=== PATIENT | female | born 1970 | race Caucasian/White ===

== ENCOUNTER → 2020-09-01 07:33 | Outpatient (BNVA) | payer OTHER, SELFPAY | PROVIDERS: PCP Internal Medicine; Visit Provider Internal Medicine Endocrinology, Diabetes & Metabolism | DX: Z76.89 Persons encountering health services in other specified circumstances (principal) ==

== ENCOUNTER 2020-09-01 08:18 | Outpatient (REF) | payer OTHER, SELFPAY ==
[2020-09-01 11:11] LABS: Free T4 (Free Thyroxine) 0.87 ng/dL (0.71-1.85); Thyroid Stimulating Hormone 0.65 mIU/mL (0.32-4.0)
[2020-09-02 18:37] LABS: Triiodothyronine T3 Total 83 ng/dL (76-181)
== END 2020-09-01 08:19 | disposition home or self-care (01) ==
LOC: HO.10HDL 08:18
PROVIDERS: Visit Provider Internal Medicine Endocrinology, Diabetes & Metabolism
DX: E04.2 Nontoxic multinodular goiter (principal)
CPT/HCPCS: 84439; 84443; 84480

== ENCOUNTER 2020-10-21 08:56 | Outpatient (REF) | payer OTHER, SELFPAY ==
--- NOTE | 2020-10-21 09:00 | MM_ITS ---
EXAMINATION: MM SCREENING DIGITAL BREAST TOMOSYNTHESIS, BILATERAL CLINICAL INFORMATION: Screening. Asymptomatic. The lifetime risk of breast cancer based on the Tyrer-Cuzick Model is 6%. COMPARISON: Mammography: 04/16/2019, 11/19/2017, 08/22/2011 TECHNIQUE: Digital breast tomosynthesis is performed in both the craniocaudal and mediolateral oblique views along with computer-aided detection (CAD). Synthesized 2D images are generated from the tomosynthesis. FINDINGS: There are scattered areas of fibroglandular density (ACR BI-RADS breast composition Category b). There are no significant masses, abnormal calcifications, or other abnormalities. Parenchymal pattern is similar to prior studies. No developing density. No significant changes. MM/MM tomosynthesis screening BI IMPRESSION: No mammographic evidence of malignancy. ASSESSMENT: BI-RADS 1: Negative RECOMMENDATION: Routine annual mammography screening. This patient's information was entered into a reminder system with a target due date for their next mammogram.
== END 2020-10-21 08:57 | disposition home or self-care (01) ==
LOC: HO.MAMMO 08:56
PROVIDERS: Visit Provider Internal Medicine
DX: Z12.31 Encounter for screening mammogram for malignant neoplasm of breast (principal)
CPT/HCPCS: 77063; 77067

== ENCOUNTER 2020-11-08 16:42 | Outpatient (REF) | payer OTHER, SELFPAY ==
[2020-11-08 18:07] LABS: MANUAL DIFF FLAG NO
[2020-11-08 18:11] LABS: Basophils Absolute Auto 0.1 X10*3/uL (0.0-0.2); Basophils Percent Auto 0.8 % (0-2); Eosinophils Absolute Auto 0.3 X10*3/uL (0.0-0.4); Eosinophils Percent Auto 5.2 % (0-4); Hematocrit 40.2 % (37-47); Hemoglobin 13.5 g/dl (12.0-16.0); Imm Gran Abs Auto 0.01 X10*3/uL (0.00-0.03); Imm Gran Pct Auto 0.2 % (0.0-0.4); Lymphocytes Absolute Auto 2.6 X10*3/uL (1.2-4.9); Lymphocytes Percent Auto 44.3 % (20-40); Mean Corpuscular HGB Conc 33.6 g/dl (31.0-35.0); Mean Corpuscular Hemoglobin 30.5 pg (27.0-33.0); Monocytes Absolute Auto 0.5 X10*3/uL (0.1-1.2); Monocytes Percent Auto 8.8 % (2-11); Neutrophils Absolute Auto 2.4 X10*3/uL (2.0-8.3); Neutrophils Percent Auto 40.7 % (45-73); Platelet Count 295 X10*3/uL (160-400); Red Blood Count 4.42 X10*6/uL (4.20-5.50); Red Cell Distribution Width 12.9 % (11.0-16.0); White Blood Count 5.9 X10*3/uL (4.8-10.8)
[2020-11-08 18:11] LABS: Glucose Urine UA NEG (NEG); Leukocyte Esterase Urine NEG (NEG); Nitrite Urine NEG (NEG); PH 5.5 (5.0-8.0); Specific Gravity - Urine >= 1.030 (1.005-1.025); Urine Blood NEG (NEG); Urine Ketones NEG (NEG); Urine Protein NEG (NEG-TRACE)
[2020-11-08 18:19] LABS: Appearance Urine CLEAR; Color Urine YELLOW
[2020-11-08 18:32] LABS: Alanine Aminotransferase 20 U/L (0-31); Albumin Level 4.2 g/dL (3.5-5.0); Alkaline Phosphatase 65 U/L (39-117); Anion Gap 13 (12-20); Aspartate Amino Transferase 16 U/L (5-31); Bilirubin Total 0.4 mg/dL (0.0-1.0); Blood Urea Nitrogen 15 mg/dL (9-16); Calcium 9.1 mg/dL (8.4-10.2); Carbon Dioxide 25 mmol/L (22-29); Chloride 105 mmol/L (96-108); Estimated Glomerular Filt Rate > 60; Glucose Random 78 mg/dL (60-115); Potassium 4.1 mmol/l (3.3-5.1); Sodium 139 mmol/L (135-145); Total Protein 7.1 g/dL (6.5-8.0)
[2020-11-08 18:51] LABS: Erythrocyte Sedimentation Rate 5 MM/HR (0-20)
[2020-11-08 18:55] LABS: Thyroid Stimulating Hormone 1.24 uIU/mL (0.32-4.0)
== END 2020-11-08 16:43 | disposition home or self-care (01) ==
LOC: HO.LAB 16:42
PROVIDERS: Internal Medicine Endocrinology, Diabetes & Metabolism; PCP Internal Medicine; Visit Provider Internal Medicine
DX: E04.2 Nontoxic multinodular goiter (principal); I10 Essential (primary) hypertension; R11.2 Nausea with vomiting, unspecified; R42 Dizziness and giddiness; M79.7 Fibromyalgia
CPT/HCPCS: 36415; 80053; 81003; 84439; 84443; 85025; 85652

== ENCOUNTER 2021-04-04 07:46 | Outpatient (REF) | payer OTHER, SELFPAY ==
[2021-04-04 08:05] LABS: COVID-19 Test Negative (Negative)
== END 2021-04-04 07:47 | disposition home or self-care (01) ==
LOC: HO.EMPCOV 07:46
PROVIDERS: Visit Provider Internal Medicine
DX: Z20.822 Contact with and (suspected) exposure to COVID-19 (principal)
CPT/HCPCS: 36415; 87635; C9803

== ENCOUNTER 2021-09-25 07:14 | Outpatient (REF) | payer OTHER, SELFPAY ==
[2021-09-25 07:26] LABS: MANUAL DIFF FLAG NO
[2021-09-25 08:09] LABS: Basophils Percent Auto 0.6 % (0-2); Eosinophils Absolute Auto 0.3 X10*3/uL (0.0-0.4); Eosinophils Percent Auto 6.9 % (0-4); Hematocrit 40.9 % (37.0-47.0); Hemoglobin 13.8 g/dl (12.0-16.0); Imm Gran Abs Auto 0.01 X10*3/uL (0.00-0.03); Imm Gran Pct Auto 0.2 % (0.0-0.4); Lymphocytes Absolute Auto 2.2 X10*3/uL (1.2-4.9); Lymphocytes Percent Auto 44.9 % (20-40); Mean Corpuscular HGB Conc 33.7 g/dl (31.0-35.0); Mean Corpuscular Hemoglobin 30.9 pg (27.0-33.0); Mean Corpuscular Volume 91.7 fL (80.0-98.0); Mean Platelet Volume 10.9 fL (9.4-12.3); Monocytes Absolute Auto 0.5 X10*3/uL (0.1-1.2); Monocytes Percent Auto 10.4 % (2-11); Neutrophils Absolute Auto 1.8 x10*3/uL (2.0-8.3); Platelet Count 278 X10*3/uL (160-400); Red Blood Count 4.46 X10*6/uL (4.20-5.50); Red Cell Distribution Width 13.3 % (11.0-16.0); White Blood Count 4.8 X10*3/uL (4.8-10.8)
[2021-09-25 08:15] LABS: Appearance Urine CLEAR; Color Urine YELLOW; Glucose Urine UA NEG (NEG); Leukocyte Esterase Urine NEG (NEG); Nitrite Urine NEG (NEG); Specific Gravity - Urine 1.025 (1.005-1.025); Urine Blood NEG (NEG); Urine Ketones NEG (NEG); Urine Protein NEG (NEG-TRACE)
[2021-09-25 08:28] LABS: Alanine Aminotransferase 20 U/L (0-31); Alkaline Phosphatase 75 U/L (39-117); Anion Gap 11 (12-20); Aspartate Amino Transferase 17 U/L (5-31); Bilirubin Total 0.6 mg/dL (0.0-1.0); Blood Urea Nitrogen 15 mg/dL (9-16); Calcium 8.9 mg/dL (8.4-10.2); Carbon Dioxide 24 mmol/L (22-29); Chloride 108 mmol/L (96-108); Cholesterol 173 mg/dL; Estimated Glomerular Filt Rate > 60; Glucose Fasting 100 mg/dL (60-99); HDL Cholesterol 54 mg/dL; LDL Cholesterol Calculated 94 mg/dl; Potassium 4.3 mmol/L (3.3-5.1); Sodium 139 mmol/L (135-145); Triglycerides 128 mg/dL
[2021-09-25 08:53] LABS: Free T4 (Free Thyroxine) 0.75 ng/dL (0.71-1.85); Thyroid Stimulating Hormone 1.21 uIU/mL (0.32-4.0); Vitamin D 25-OH Total 5.6 ng/mL (>30)
== END 2021-09-25 07:15 | disposition home or self-care (01) ==
LOC: HO.LAB 07:14
PROVIDERS: PCP Internal Medicine; Visit Provider Internal Medicine
DX: Z00.00 Encounter for general adult medical examination without abnormal findings (principal); E55.9 Vitamin D deficiency, unspecified; E03.9 Hypothyroidism, unspecified
CPT/HCPCS: 36415; 80053; 80061; 81003; 82306; 84439; 84443; 85025

== ENCOUNTER 2021-11-01 16:28 | Outpatient (REF) | payer OTHER, SELFPAY ==
--- NOTE | ~2021-11-01 | US_ITS ---
EXAMINATION: US THYROID CLINICAL INFORMATION: Nontoxic multinodular goiter. COMPARISON: Ultrasound soft tissue head/neck thyroid dated 06/23/2019. TECHNIQUE: Linear transducer grayscale and color Doppler examination with attention to the region of the thyroid. FINDINGS: SIZE: Measurements of the solitary left thyroid lobe and nodules are given in sagittal, anteroposterior and transverse dimensions respectively. Right Thyroid Lobe: Surgically absent. Left Thyroid Lobe: 5.9 x 2.2 x 2.6 cm, volume 18 mL. Previously 6.6 x 2.0 x 2.5 cm, volume 17 mL. Parenchyma: The gland echotexture is homogeneous. Thyroid vascularity is normal. Isthmus: 0.2 cm in maximum AP dimension. Previously 0.6 cm. Estimated total number of nodules greater than or equal to 1 cm: 0. Bat Person nodules are described as follows: 1. Location: Left mid. Size: 0.9 x 0.6 x 0.9 cm, volume 0.278 mL. Previously: 0.7 x 0.4 x 0.5 cm, volume 0.07 mL. Nodule characteristics: Composition: Solid (2). Echogenicity: Hypoechoic (2). Shape: Not taller than wide (0). Margins: Smooth (0). Echogenic Foci: None (0). ACR TI-RADS total points: 4 ACR TI-RADS category: 4 Significant change in size (>/= 20% in 2 dimensions and minimal increase of 2 mm or 50% or greater increase in volume): Yes Change in features: No Change in ACR TI-RADS risk category: Not applicable 2. Location: Left superior. Size: 0.4 x 0.2 x 0.2 cm, volume 0.009 mL. Previously: Not documented on the prior study. Nodule characteristics: Composition: Solid (2). Echogenicity: Isoechoic (1). Shape: Not taller than wide (0). Margins: Smooth (0). Echogenic Foci: None (0). ACR TI-RADS total points: 3 ACR TI-RADS category: 3 NODES: No lymphadenopathy is seen in the tissue surrounding the thyroid gland. US/US thyroid IMPRESSION: Unremarkable appearance of the thyroidectomy bed. There is a TR 4 nodule at the left midpole which measures up to 9 mm in maximum dimension. Follow-up ultrasound recommended in one year. ACR TI-RADS RECOMMENDATION REFERENCE: Ultrasound-guided fine-needle aspiration, followup ultrasound, no further follow up. * TR1 (0 point) and TR 2 (2 points): No FNA or follow up * TR3 (3 points): FNA if more than or equal to 2.5 cm in maximum dimension, followup ultrasound in 1, 3 and 5 years if 1.5 to 2.4 cm in maximum dimension. * TR4 (4-6 points): FNA if more than or equal to 1.5 cm in maximum dimension, followup ultrasound in 1, 2, 3 and 5 years if 1 to 1.4 cm in maximum dimension. * TR5 (more than or equal to 7 points): FNA if more than or equal to 1 cm in maximum dimension, followup ultrasound every year for 5 years if 0.5 to 0.9 cm in maximum dimension. * TR3, TR4 or TR5 nodules that are below the size threshold for follow up receive no follow up.
== END 2021-11-01 16:29 | disposition home or self-care (01) ==
LOC: HO.US 16:28
PROVIDERS: PCP Internal Medicine; Visit Provider Internal Medicine
DX: E04.2 Nontoxic multinodular goiter (principal)
CPT/HCPCS: 76536

== ENCOUNTER → 2021-12-18 08:51 | Outpatient (BNVA) | payer OTHER, SELFPAY | PROVIDERS: PCP Internal Medicine; Referring Provider Internal Medicine; Visit Provider Nurse Practitioner Family ==

== ENCOUNTER 2022-02-12 13:41 | Outpatient (REF) | payer OTHER, SELFPAY ==
[2022-02-13 15:42] LABS: BV Int Neg Control Negative (Negative); BV Int Pos Control Positive (Positive)
== END 2022-02-12 13:42 | disposition home or self-care (01) ==
LOC: HO.LAB 13:41
PROVIDERS: PCP Internal Medicine; Visit Provider Advanced Practice Midwife
DX: N89.8 Other specified noninflammatory disorders of vagina (principal); Z87.891 Personal history of nicotine dependence; Z77.22 Contact with and (suspected) exposure to environmental tobacco smoke (acute) (chronic); Z98.51 Tubal ligation status; Z88.3 Allergy status to other anti-infective agents
CPT/HCPCS: 87480; 87510; 87660

== ENCOUNTER → 2022-02-14 07:59 | Outpatient (BNVA) | payer OTHER, SELFPAY | PROVIDERS: PCP Internal Medicine; Visit Provider Internal Medicine Endocrinology, Diabetes & Metabolism | DX: Z13.89 Encounter for screening for other disorder (principal) ==

== ENCOUNTER 2022-02-14 08:22 | Outpatient (REF) | payer OTHER, SELFPAY ==
[2022-02-14 11:32] LABS: Free T4 (Free Thyroxine) 0.85 ng/dL (0.71-1.85); Thyroid Stimulating Hormone 1.03 uIU/mL (0.32-4.0)
== END 2022-02-14 08:23 | disposition home or self-care (01) ==
LOC: HO.10HDL 08:22
PROVIDERS: Visit Provider Internal Medicine Endocrinology, Diabetes & Metabolism
DX: E04.2 Nontoxic multinodular goiter (principal)
CPT/HCPCS: 36415; 84439; 84443

== ENCOUNTER 2022-03-15 08:10 | Day surgery (SDC) | payer OTHER, SELFPAY ==
[2022-03-09 09:46] VITALS: BMI 33.6
--- NOTE | 2022-03-14 10:45 | P.CONAN_ITS ---
Documented by User: Vicki Pelletier NP 03/14/22 10:45 HPI - Anesthesia Eval Consult details Narrative: 51yo F for Colonoscopy PMFSH Active Problems Active Problems: All Active Problems (Updated 02/12/22 @ 14:58 by Caterina Jennings CNM) Vaginal lesion (Acute) Problematic vaginal discharge (Acute) Colon cancer screening (Acute) Lumbar degenerative disc disease (Acute) Annual physical exam (Acute) Dizziness (Acute) Obesity (BMI 30-39.9) (Acute) Multinodular goiter (Acute) Past Medical History Medical History Lumbar degenerative disc disease Multinodular goiter Obesity (BMI 30-39.9) Family History Family History Father No problems noted. Mother Heart disease Surgical History Surgical History History of endometrial ablation History of lobectomy of thyroid (~07/19/20) History of tubal ligation Hx of colonoscopy Social History Social History Housing: House Alcohol intake: current Alcohol intake frequency: a few times a month Patient Tobacco Use Status: Current someday Tobacco user Tobacco use type: Cigarette Cigarettes Per Day: 3 Second Hand Smoke Exposure: Yes service: No Current occupational status: employed Meds Allergies Allergy/AdvReac Type Severity Reaction Status Date / Time doxycycline Allergy Unknown hives Verified 02/14/22 08:02 Exam Exam Date and Time: March 14, 2022 1045 Height,Weight and Vital Signs: Height 5 ft 3 in Weight 86.183 kg Pertinent Lab Results Pertinent Lab Results: Laboratory Tests 09/25/21 09/25/21 07:25 07:25 WBC 4.8 Hgb 13.8 Hct 40.9 Plt Count 278 Sodium 139 Potassium 4.3 Chloride 108 Carbon Dioxide 24 BUN 15 Creatinine 0.79 Assessment and Plan Assessment Anesthesia Assessment: Chart Reviewed Documented by User: Veto Cho MD 03/15/22 12:51 [facility] Past Medical History Medical History Lumbar degenerative disc disease Multinodular goiter Obesity (BMI 30-39.9) Family History Family History Father No problems noted. Mother Heart disease Family history of problems with anesthesia: No Surgical History Surgical History History of endometrial ablation History of lobectomy of thyroid (~07/19/20) History of tubal ligation Hx of colonoscopy History of Problems with Anesthesia: No Social History Social History Housing: House Alcohol intake: current Alcohol intake frequency: a few times a month Patient Tobacco Use Status: Current someday Tobacco user Tobacco use type: Cigarette Cigarettes Per Day: 3 Second Hand Smoke Exposure: Yes service: No Current occupational status: employed Meds Allergies Allergy/AdvReac Type Severity Reaction Status Date / Time doxycycline Allergy Unknown hives Verified 02/14/22 08:02 Exam Airway Mallampati Class: I TM Dist: >3cm Neck ROM: Full Loose/Missing/Broken Teeth: No Assessment and Plan Assessment Anesthesia Assessment: Anesthesia Plan Discussed Final Anesthetic Review Family History of Problems with Anesthesia: No History of Problems with Anesthesia: No NPO: Yes ASA Class: II Final Preanesthetic Review: No Changes in Pt Med Stat, Meds/Allgs Chart Reviewed, Consent Obtained/Reviewed and Anes Risks/Benef Reviewed Patient Risk: Low Procedure Risk: Low Anesthetic Plan Anesthetic Plan: MAC: Disposition: Standard PACU
[2022-03-15 08:31] VITALS: BP 131/94; PULSE 105; RESP 16; TEMP 36; O2SAT 97
[2022-03-15] MEDS: Lactated Ringers 1,000 ML 100 ML IVCONT (08:39)
--- NOTE | 2022-03-15 09:01 | P.HPSUR_ITS ---
Pre-Procedural Eval Section A Date of Service: 03/15/22 Section B Chief Complaint: screening Details of Present Illness: sister with colon cancer Relevant Family History (Specify if Yes): Yes Relevant Social History: None Present Medications: see Short Stay Collaborative assessment Medical History: Significant History (Lumbar degenerative disc disease Multinodular goiter Obesity (BMI 30-39.9)) History of Previous Operations: Relevant previous surgery/procedure and date(s) (History of endometrial ablation History of lobectomy of thyroid (~07/19/20) His tory of tubal ligation Hx of colonoscopy) Allergies: Allergies Allergy/AdvReac Type Severity Reaction Status Date / Time doxycycline Allergy Unknown hives Verified 02/14/22 08:02 Review of Systems Sugical H&P ROS: Negative: Constitution, Cardiovascular, Respiratory, Neurological, Psychiatric, Hem-Onc, Allergic/Immunologic, Gastrointestinal, Genitourinary, Musculoskeletal, Integumentary, Endocrine and Eyes/Ears/Nose/Throat Exam Surgical H&P Exam: Normal: HEENT, Normal: Heart, Normal: Lungs, Normal: Extremities, Normal: Abdomen, Normal: Skin and Normal: Neurological Plan Diagnosis/Plan: Unchanged I have reviewed the history and physical and performed a pertinent physical examination on my patient. No changes have occurred unless specified.
--- NOTE | 2022-03-15 09:42 | P.OP_ITS ---
Operative Note Operative Note Date of Service: 03/15/22 Narrative: Operative Information Procedure Description: Colonoscopy Indication: Fh of AZJ-kadeblseb-dher risk Anesthesia: MAC COLONOSCOPY Instrument: Olympus variable stiffness pediatric scope 190L Colonoscopy Monitoring: Vital signs and clinical assessment, continuous EKG monitoring, Pulse oximetry, Carbon Dioxide monitoring and blood pressure monitoring were done throughout the procedure. Colon withdrawal time was 22 minutes. Procedure: The patient was placed in the left lateral decubitis position and pre-procedure medications were administered. After a digital rectal examination of the ano-rectum, the video colonoscope was inserted into the rectum and advanced through the colon to the cecum/TI. The colonoscope was slowly withdrawn in a retrograde panoramic fashion and the colon mucosa was carefully examined including a retroflexed view of the rectum. Findings and interventions are described below. Procedure Difficulty: moderate due to looping Findings: Terminal Ileum-not intubated Cecum: a diminutive polyp lesion was noted, but the scope position was unstable and despite multiple repositioning it was not seen again Ascending Colon: normal Transverse Colon -normal Descending Colon:normal Sigmoid Colon: normal Rectum: Retroflexion with small internal hemorrhoids, grade I Anorectum - normal Colon preparation: [place] Bowel Preparation Scale Right colon; 2 Transverse colon: 2 Left colon; 2 (0 = Unprepared colon segment with mucosa not seen due to solid stool that cannot be cleared. 1 = Portion of mucosa of the colon segment seen, but other areas of the colon segment not well seen due to staining, residual stool and/or opaque liquid. 2 = Minor amount of residual staining, small fragments of stool and/or opaque liquid, but mucosa of colon segment seen well. 3 = Entire mucosa of colon segment seen well with no residual staining, small fragments of stool or opaque liquid) Impression and Post Procedure Diagnosis: diminutive polyp internal hemorrhoids Plan: High fiber diet leaflet Avoid straining at stool, epsom salts and sitz bath, anusol supps or cream Repeat Colonoscopy in 1-2 years or earlier if clinically indicated--next time use an adult scope Above findings were reviewed with the patient and relevant handouts were provided if indicated.
--- NOTE | 2022-03-15 09:42 | P.BOP_ITS ---
Brief Operative Note Date of Service: 03/15/22 Pre-op diagnosis: Fh of CRC Post-op diagnosis: same Procedure: see op note Surgeon: Chencho Hills MD Anesthesia: MAC Was an Head Neck Surgeon used for this Procedure?: No Estimated blood loss (mL): 0 Condition: stable Disposition: PACU
[2022-03-15 09:48] VITALS: BP 134/98; PULSE 90; RESP 12; TEMP 36.1; O2SAT 96
[2022-03-15 10:03] VITALS: BP 145/91; PULSE 85; RESP 16; TEMP 36.2; O2SAT 96
== END 2022-03-15 10:35 | disposition home or self-care (01) ==
PROVIDERS: PCP Internal Medicine; Visit Provider Internal Medicine Gastroenterology
PROC: 0DJD8ZZ Inspection of Lower Intestinal Tract, Via Natural or Artificial Opening Endoscopic (ICD-10-PCS; CPT 45378; principal; 2022-03-15 13:00)
DX: Z12.11 Encounter for screening for malignant neoplasm of colon (principal); Z83.71 Family history of colonic polyps; K63.5 Polyp of colon; K64.0 First degree hemorrhoids; E04.2 Nontoxic multinodular goiter; E66.9 Obesity, unspecified; Z68.33 Body mass index [BMI] 33.0-33.9, adult; M51.36 Other intervertebral disc degeneration, lumbar region; Z88.8 Allergy status to other drugs, medicaments and biological substances; Z87.891 Personal history of nicotine dependence
CPT/HCPCS: 45378

== ENCOUNTER → 2022-03-28 09:13 | Outpatient (BNVA) | payer OTHER, SELFPAY | PROVIDERS: PCP Internal Medicine; Referring Provider Internal Medicine; Visit Provider Nurse Practitioner Family | DX: Z13.89 Encounter for screening for other disorder (principal) ==

== ENCOUNTER 2022-05-22 11:05 | Outpatient (REF) | payer OTHER, SELFPAY | END 2022-05-22 11:06 | disposition home or self-care (01) | LOC: HO.LAB 11:05 | PROVIDERS: PCP Internal Medicine; Visit Provider Obstetrics & Gynecology | DX: N90.89 Other specified noninflammatory disorders of vulva and perineum (principal) | CPT/HCPCS: 56605; 88305; 88312 ==

== ENCOUNTER 2022-09-10 16:30 | Outpatient (REF) | payer OTHER, SELFPAY ==
--- NOTE | ~2022-09-10 | MM_ITS ---
EXAMINATION: MM SCREENING DIGITAL BREAST TOMOSYNTHESIS, BILATERAL CLINICAL INFORMATION: Screening. Asymptomatic. COMPARISON: Mammography: 10/21/2020, 04/16/2019 TECHNIQUE: Digital breast tomosynthesis is performed in both the craniocaudal and mediolateral oblique views along with computer-aided detection (CAD). Synthesized 2D images are generated from the tomosynthesis. Additional right MLO view is provided. FINDINGS: There are scattered areas of fibroglandular density (ACR BI-RADS breast composition Category b). There are no significant masses, abnormal calcifications, or other abnormalities. Parenchymal pattern is similar to prior studies. There is no developing density or architectural abnormality. The axilla and skin contours are unremarkable. No significant changes. MM/MM tomosynthesis screening BI IMPRESSION: No mammographic evidence of malignancy. ASSESSMENT: BI-RADS 1: Negative RECOMMENDATION: Routine annual mammography screening. This patient's information was entered into a reminder system with a target due date for their next mammogram.
== END 2022-09-10 16:31 | disposition home or self-care (01) ==
LOC: HO.MAMMO 16:30
PROVIDERS: PCP Internal Medicine; Visit Provider Internal Medicine
DX: Z12.31 Encounter for screening mammogram for malignant neoplasm of breast (principal)
CPT/HCPCS: 77063; 77067

== ENCOUNTER 2023-02-05 09:04 | Outpatient (REF) | payer OTHER, SELFPAY ==
[2023-02-05 09:33] LABS: MANUAL DIFF FLAG NO
[2023-02-05 10:04] LABS: Basophils Absolute Auto 0.1 X10*3/uL (0.0-0.2); Basophils Percent Auto 1.1 % (0-2); Eosinophils Absolute Auto 0.3 X10*3/uL (0.0-0.4); Eosinophils Percent Auto 6.9 % (0-4); Hematocrit 38.4 % (37.0-47.0); Imm Gran Abs Auto 0.01 X10*3/uL (0.00-0.03); Imm Gran Pct Auto 0.2 % (0.0-0.4); Lymphocytes Absolute Auto 1.7 X10*3/uL (1.2-4.9); Lymphocytes Percent Auto 38.4 % (20-40); Mean Corpuscular HGB Conc 33.9 g/dl (31.0-35.0); Mean Corpuscular Hemoglobin 31.9 pg (27.0-33.0); Mean Corpuscular Volume 94.1 fL (80.0-98.0); Mean Platelet Volume 10.8 fL (9.4-12.3); Monocytes Absolute Auto 0.5 X10*3/uL (0.1-1.2); Monocytes Percent Auto 10.7 % (2-11); Neutrophils Absolute Auto 1.9 x10*3/uL (2.0-8.3); Neutrophils Percent Auto 42.7 % (45-73); Platelet Count 306 X10*3/uL (160-400); Red Blood Count 4.08 X10*6/uL (4.20-5.50); Red Cell Distribution Width 13.4 % (11.0-16.0); White Blood Count 4.5 X10*3/uL (4.8-10.8)
[2023-02-05 10:20] LABS: Estimated Average Glucose 108 mg/dL; Hemoglobin A1c % 5.4 %
[2023-02-05 10:40] LABS: Alanine Aminotransferase 17 U/L (0-31); Albumin Level 3.8 g/dL (3.5-5.0); Alkaline Phosphatase 66 U/L (39-117); Anion Gap 11 (12-20); Aspartate Amino Transferase 18 U/L (5-31); Bilirubin Total 0.7 mg/dL (0.0-1.0); Blood Urea Nitrogen 9 mg/dL (9-16); Calcium 9.1 mg/dL (8.4-10.2); Carbon Dioxide 24 mmol/L (22-29); Chloride 108 mmol/L (96-108); Cholesterol 185 mg/dL; Estimated Glomerular Filt Rate > 60; Glucose Fasting 105 mg/dL (60-99); HDL Cholesterol 46 mg/dL; LDL Cholesterol Calculated 105 mg/dl; Potassium 4.3 mmol/L (3.3-5.1); Sodium 139 mmol/L (135-145); Total Protein 6.5 g/dL (6.5-8.0); Triglycerides 172 mg/dL
[2023-02-05 10:53] LABS: Vitamin D 25-OH Total 7.8 ng/mL (>30)
[2023-02-05 11:10] LABS: TSH reflex Free T4 0.85 uIU/mL (0.32-4.0)
[2023-02-05 13:55] LABS: Appearance Urine Clear; Color Urine Dark Yellow; Glucose Urine UA Negative (Negative); Leukocyte Esterase Urine Negative (Negative); Nitrite Urine Negative (Negative); PH 5.5 (5.0-9.0); Specific Gravity - Urine 1.025 (1.005-1.025); Urine Blood Negative (Negative); Urine Ketones Negative (Negative); Urine Protein Trace mg/dL (Neg-Trace)
== END 2023-02-05 09:05 | disposition home or self-care (01) ==
LOC: HO.LAB 09:04
PROVIDERS: PCP Internal Medicine; Visit Provider Internal Medicine
DX: Z00.00 Encounter for general adult medical examination without abnormal findings (principal); E55.9 Vitamin D deficiency, unspecified; E78.00 Pure hypercholesterolemia, unspecified; R73.9 Hyperglycemia, unspecified; R30.0 Dysuria
CPT/HCPCS: 36415; 80053; 80061; 81003; 82306; 83036; 84443; 85025

== ENCOUNTER 2023-02-14 11:02 | Outpatient (REF) | payer OTHER, SELFPAY ==
--- NOTE | ~2023-02-14 | US_ITS ---
EXAMINATION: US THYROID CLINICAL INFORMATION: Nontoxic multinodular goiter. One-year follow up. Right thyroidectomy. COMPARISON: Thyroid ultrasound 11/01/2021 and 06/23/2019. Ultrasound-guided thyroid biopsy 03/24/2020 TECHNIQUE: Linear transducer grayscale and color Doppler examination with attention to the region of the thyroid. FINDINGS: SIZE: Measurements of the solitary left lobe and nodules are given in sagittal, anteroposterior and transverse dimensions respectively. Right Thyroid Lobe: Surgically absent. Left Thyroid Lobe: 5.8 x 2.1 x 2.5 cm, volume 16 mL. Previously 5.9 x 2.2 x 2.6 cm, volume 18 mL. Parenchyma: The gland echotexture is homogeneous. Thyroid vascularity is normal. Isthmus: 0.4 cm in maximum AP dimension. Previously 0.2 cm. Estimated total number of nodules greater than or equal to 1 cm: 0. Damaged Freight Inspector nodules are described as follows: 1. Location: Left upper/mid pole. Size: 0.5 x 0.3 x 0.5 cm, volume 0.04 mL. Previously: 0.4 x 0.2 x 0.2 cm, volume 0.01 mL. Nodule characteristics: Composition: Solid (2). Echogenicity: Hypoechoic (2). Shape: Not taller than wide (0). Margins: Ill-defined (0). Echogenic Foci: None (0). ACR TI-RADS total points: 4 Previous: 3 ACR TI-RADS category: 4 Previous: 3 Significant change in size (>/= 20% in 2 dimensions and minimal increase of 2 mm or 50% or greater increase in volume): No Change in features: No Change in ACR TI-RADS risk category: No 2. Location: Left mid pole. Size: 0.8 x 0.5 x 0.7 cm, volume 0.1 mL. Previously: 0.9 x 0.6 x 0.9 cm, volume 0.3 mL. Nodule characteristics: Composition: Solid (2). Echogenicity: Very hypoechoic (3). Shape: Not taller than wide (0). Margins: Ill-defined (0). Echogenic Foci: None (0). ACR TI-RADS total points: 5 Previous: 4 ACR TI-RADS category: 4 Previous: 4 Significant change in size (>/= 20% in 2 dimensions and minimal increase of 2 mm or 50% or greater increase in volume): No Change in features: No Change in ACR TI-RADS risk category: No 3. Location: Left lower pole. Size: 0.4 x 0.2 x 0.5 cm, volume 0.02 mL. Previously: Not documented previously. Nodule characteristics: Composition: Solid (2). Echogenicity: Isoechoic (1). Shape: Not taller than wide (0). Margins: Ill-defined (0). Echogenic Foci: None (0). ACR TI-RADS total points: 3 ACR TI-RADS category: 3 RIGHT THYROIDECTOMY BED: Unremarkable. No abnormal tissue in the surgical bed. NODES: No lymphadenopathy is seen in the tissue surrounding the thyroid gland. US/US thyroid IMPRESSION: Left thyroid lobe nodules do not meet ACR criteria for follow-up. TI RADS recommendations: TR 1: Benign. No follow-up or tissue sampling. TR 2: Not suspicious. No follow-up or tissue sampling. TR 3: Mildly suspicious. Recommend fine-needle aspiration if size greater than or equal to 2.5 cm; Follow up if greater than or equal to 1.5 cm at one, 3, and 5 years. TR 4: Moderately suspicious. Recommend fine-needle aspiration of size greater than or equal to 1.5 cm; recommend follow-up if size greater than equal to 1 cm at 1, 2, 3, and 5 years. TR 5: Highly suspicious. Recommend fine-needle aspiration if size greater than or equal to 1 cm; recommend follow-up if size greater than or equal to 0.5 cm annually for 5 years.
== END 2023-02-14 11:03 | disposition home or self-care (01) ==
LOC: HO.US 11:02
PROVIDERS: Visit Provider Internal Medicine
DX: E04.2 Nontoxic multinodular goiter (principal)
CPT/HCPCS: 76536

== ENCOUNTER → 2023-03-18 09:28 | Outpatient (BNVA) | payer OTHER, SELFPAY | PROVIDERS: PCP Internal Medicine; Visit Provider Nurse Practitioner Family ==

== ENCOUNTER → 2023-04-02 08:08 | Outpatient (BNVA) | payer OTHER, SELFPAY | PROVIDERS: PCP Internal Medicine; Referring Provider Internal Medicine; Visit Provider Physician Assistant Surgical ==

== ENCOUNTER 2023-05-28 14:09 | Outpatient (AMB) | payer OTHER, SELFPAY ==
[2023-05-28 14:11] VITALS: BP 120/78; PULSE 94; O2SAT 98; BMI 34.2
--- NOTE | 2023-05-28 14:11 | A.OFFPC_ITS ---
Vital Signs 05/28/23 14:11 Height 5 ft 3 in Weight 193 lb BMI 34.2 BP 120/78 Blood Pressure Location Lt brachial Position Sitting Pulse 94 Pulse Source Pulse Oximeter Temp Source Skin Pulse Oximetry (%) 98 Oxygen Delivery Method Room Air Intake Visit Reasons: back pain herniated disc Intake Note: pt states assisted back pain, pt requesting MRI Engineering Surveyor Required: No Allergies doxycycline Allergy (Unknown, Verified 05/28/23 14:17) hives Medication List - Last Reconciled 05/28/23 by Ismael Aleman PA-C metronidazole 0.75%(37.5mg/5gram) 1 appful vaginal BEDTIME 5 days Tobacco use date assessed: 05/28/23 Dental Screening Dental Screen Date: 05/28/23 HPI back pain herniated disc HPI Details Patient is a 53-year-old female here today for problem visit. Patient is generally healthy though struggles with weight and is in the weight management program. She has a chronic history of lumbar disc disease to which MRI in 2018 of lumbar spine showing proper is posterior disc protrusion level S1 extending into the left neural foramina and impinging on the L5 nerve root. She has been experiencing more lower back pain upon physical activity (walking and going up stairs) , does report at times pain shoot down right leg. She is very focused on losing weight and would like to be more physically active though she is hindered by her continued lower back pain [facility] Medical History Lumbar degenerative disc disease Multinodular goiter Obesity (BMI 30-39.9) Surgical History History of endometrial ablation History of lobectomy of thyroid (~07/19/20) History of tubal ligation Hx of colonoscopy Family History Father No problems noted. Mother Heart disease Social History Household Members: Spouse Housing: House Alcohol intake: current Alcohol intake frequency: a few times a month Patient Tobacco Use Status: Current someday Tobacco user Tobacco use type: Cigarette Cigarettes Per Day: 3 e-Cigarette/Vaping Use: Never Used Second Hand Smoke Exposure: Yes service: No Current occupational status: employed Sexual orientation: Straight/Heterosexual Gender identity: Female Cognitive needs: No Hearing needs: No Vision needs: No Female Reproductive History Menstrual Age of Menarche: 15 Questionnaire Thrive Questionnaire Date Thrive assessed: 02/04/23 AUDIT C Alcohol Use Questionnaire (AUDIT-C) 1. How often do you have a drink containing alcohol?: Monthly or less 2. How many drinks containing alcohol do you have on a typical day when you are drinking?: 1 or 2 3. How often do you have six or more drinks on one occasion?: Never Total Score: 1 Score Reviewed/Action Taken: Yes MYRA-7 AMB Questionnaire MYRA-7 Date MYRA - 7 assessed: 02/04/23 Source: Developed by Drs. Devaughn Lauren, Mallory Garcia, Timothy Alegre and colleagues, with an educational shara from [employer]. Review of Systems Const Denies headache(s) Eyes Denies loss of vision ENT Denies vertigo, Denies dizziness, Denies headache(s) and Denies sore throat Card Denies chest pain, Denies leg edema and Denies lightheadedness Resp Denies cough, Denies hemoptysis and Denies wheezing GI Denies abdominal pain, Denies melena, Denies constipation, Denies diarrhea and Denies vomiting Denies urinary frequency, Denies dysuria and Denies urinary urgency Musc Denies arthralgias, Denies joint swelling, Denies numbness and Denies tingling Neuro Denies Abnormal speech present, Denies behavioral changes, Denies vertigo, Denies dizziness, Denies headache(s), Denies loss of vision, Denies memory loss, Denies numbness and Denies tingling Psych Denies anxiety, Denies behavioral changes, Denies depression, Denies memory loss and Denies panic attacks Lv/Lymph Denies easy bleeding and Denies easy bruising Aller/Immun Denies wheezing Physical exam (Primary Care) Vital Signs: Last Vital Signs Pulse 94 05/28/23 14:11 BP 120/78 05/28/23 14:11 Pulse Ox 98 05/28/23 14:11 Oxygen Delivery Method Room Air 05/28/23 14:11 BMI result Body Mass Index 34.2 Tobacco/Smoking Status: Tobacco use Status Tobacco use date assessed 05/28/23 05/28/23 14:12 Patient Tobacco Use Status Current someday Tobacco 05/28/23 14:12 Tobacco use type Cigarette 05/28/23 14:12 e-Cigarette/Vaping Use Never Used 05/28/23 14:12 Thrive Assessment: Date of Thrive Assessment Date Thrive assessed 02/04/23 05/28/23 14:12 Const General: healthy appearing, no acute distress, alert and awake Nutritional Appearance: well nourished Orientation/consciousness: oriented to person, oriented to place and oriented to time HENMT Ears: TM's normal bilaterally General nose exam: Normal nasal mucous membranes and turbinates present Eyes Conjunctivae: conjunctivae normal Sclerae: sclerae normal Pupils: Equal, round and reactive pupils present Neck Neck: Yes no lymphadenopathy and Yes no JVD Thyroid: Thyroid normal Carotids: no bruits Resp Effort & Inspection: normal respiratory effort and not tachypneic Auscultation: no crackles, no rales, no rhonchi and no wheezes Cardio Rate: regular rate Rhythm: regular rhythm Heart sounds: no murmurs and normal S1 and S2 GI Palpation (GI): Soft to palpation, nontender, no hepatomegaly and no splenomegaly Auscultation: normal bowel sounds Skin General skin exam: no rashes or lesions noted and dry skin Neuro General: oriented to person, oriented to place and oriented to time Cranial nerves: Yes Equal, round and reactive pupils present Speech: No Abnormal speech present Gait exam (Neuro): Normal gait present Motor exam (neuro): no tremor noted Extrem Right upper extremity: full ROM Left upper extremity: full ROM Right lower extremity: full ROM; no edema Left lower extremity: full ROM; no edema Psych Mental Status: mental status grossly normal Speech and movement: Normal speech and movement present Affect: normal affect Attitude: cooperative Thought process: Normal thought process present Assessment and Plan Assessment & Plan (1) Lumbar radiculopathy: Code(s): M54.16 - Radiculopathy, lumbar region Plan: Patient experiencing lumbar radiculopathy down right lower extremity. Again MRI of lumbar spine in 2018 showing an L5-S1 disc herniation with nerve impingement. She continues to try to manage without medication though has been experiencing more lower back pain with activity. Has done physical therapy in the past and has tried medications though has not been able to tolerate these meds. Will try for new MRI of lumbar spine due to worsening lower lumbar spine pain with radiculopathy down right lower extremity. (2) Lumbar degenerative disc disease: Code(s): M51.36 - Other intervertebral disc degeneration, lumbar region (3) Obesity (BMI 30-39.9): Code(s): E66.9 - Obesity, unspecified Plan: Patient interested in trying oral medication to help lose weight. Will try low- dose rybelsus for weight loss Orders: Orders MR lumbar spine wo con Today M51.36 - Other intervertebral disc degeneration, lumbar region, M54.16 - Radiculopathy, lumbar region Medications: New semaglutide (Rybelsus) 3 mg PO DAILY 30 days 30 tabs 1RF E66.9 - Obesity, unspecified Coding Level of Care Code Est Pt Level 4 (91562) Diagnoses Lumbar radiculopathy M54.16 Lumbar degenerative disc disease M51.36 Obesity (BMI 30-39.9) E66.9
== END 2023-05-28 14:36 | disposition home or self-care (01) ==
PROVIDERS: PCP Internal Medicine; Visit Provider Physician Assistant
DX: M54.16 Radiculopathy, lumbar region (principal); M51.36 Other intervertebral disc degeneration, lumbar region; E66.9 Obesity, unspecified; Z68.34 Body mass index [BMI] 34.0-34.9, adult
CPT/HCPCS: 99214

== ENCOUNTER 2023-06-12 13:14 | Outpatient (REF) | payer OTHER, SELFPAY ==
--- NOTE | ~2023-06-12 | MR_ITS ---
EXAMINATION: MR LUMBAR SPINE WITHOUT CONTRAST CLINICAL INFORMATION: Chronic lumbar pain with radiculopathy. COMPARISON: Lumbar spine MRI 05/22/2018. TECHNIQUE: MRI of the lumbar spine was obtained using routine sequences without contrast. FINDINGS: Alignment is normal in the sagittal dimension. Vertebral heights are preserved. Type II degenerative endplate changes at L5-S1. There is loss of intervertebral disc height and T2 signal intensity at L5-S1 related to disc degeneration. Disc desiccation at L3-L4 without substantial loss of intervertebral disc height. The tip of the conus medullaris is located at L2. No mass effect on the conus. Visualized distal cord signal intensity is normal. At L1-L2 there is a slightly bulging disc. No canal stenosis. No mass effect on the traversing or foraminal nerve roots. At L2-L3 there is a slightly bulging disc. Bilateral facet degenerative change. Mild canal stenosis. No mass effect on the traversing or foraminal nerve roots. At L3-L4 there is a bulging disc. Bilateral facet degenerative change. Moderate canal stenosis. No mass effect on the traversing or foraminal nerve roots. At L4-L5 there is a slightly bulging disc. Advanced facet degenerative change. No canal stenosis. No mass effect on the traversing or foraminal nerve roots. At L5-S1 there is a broad central protrusion superimposed upon a bulging disc. Bilateral facet degenerative change. No canal stenosis. Mild mass effect on the left L5 foraminal nerve root. Limited visualization of the retroperitoneal anatomy reveals no abnormal finding. Psoas and paraspinal muscle groups are symmetric. MR/MR lumbar spine wo con IMPRESSION: There is multilevel degenerative spondylosis of the lumbar spine. Moderate canal stenosis at L3-L4 and mild canal stenosis at L2-L3. A bulging disc in conjunction with facet degenerative change at L5-S1 causes mild mass effect on the left L5 foraminal nerve root. Otherwise no substantial mass effect on the traversing or foraminal nerve roots elsewhere within the lumbar spine.
== END 2023-06-12 13:15 | disposition home or self-care (01) ==
LOC: HO.MRI 13:14
PROVIDERS: PCP Internal Medicine; Visit Provider Physician Assistant
DX: M54.16 Radiculopathy, lumbar region (principal); M51.36 Other intervertebral disc degeneration, lumbar region
CPT/HCPCS: 72148

== ENCOUNTER 2023-07-09 08:03 | Outpatient (AMB) | payer OTHER, SELFPAY ==
[2023-07-09 08:24] VITALS: BMI 34.5
--- NOTE | 2023-07-09 08:24 | A.OFFVIS_ITS ---
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 No complaints. Last Pap/HPV was negative in 2010 Last Mammogram was in 09/25 was BI-RADS 1 Last screening colonoscopy was in 03/25 the recommendation was to repeat in 1-2 years, the patient scheduled for another screening colonoscopy in 2 days [facility] Medical History Lumbar degenerative disc disease Multinodular goiter Obesity (BMI 30-39.9) Surgical History History of endometrial ablation History of lobectomy of thyroid (~07/19/20) History of tubal ligation Hx of colonoscopy Family History Father No problems noted. Mother Heart disease Social History Household Members: Spouse Housing: House Alcohol intake: current Alcohol intake frequency: a few times a month Patient Tobacco Use Status: Current someday Tobacco user Tobacco use type: Cigarette Cigarettes Per Day: 3 e-Cigarette/Vaping Use: Never Used Second Hand Smoke Exposure: Yes service: No Current occupational status: employed Sexual orientation: Straight/Heterosexual Gender identity: Female Cognitive needs: No Hearing needs: No Vision needs: No Female Reproductive History Menstrual Age of Menarche: 15 Menopause type: natural Total pregnancies: 4 Full term: 4 Number of Living Children: 4 Date of last pap smear: 08/15/11 Date of Mammogram: 09/10/22 Review of Systems Const All systems reviewed & are unremarkable except as noted in HPI and below Card Reports as per HPI Resp Reports as per HPI GI Reports as per HPI and Reports no additional complaints Reports as per HPI Physical Exam Vital Signs: BMI result Body Mass Index 34.5 Const General: cooperative, healthy appearing and comfortable Chest Chest palpation & inspection: normal inspection of the chest and normal palpation of entire chest wall Breast/axilla inspection: normal inspection of the breasts and normal inspection of the axillae Breast/axilla palpation: normal palpation of the breasts, normal palpation of the axillae and no axillary lymphadenopathy Resp Effort & Inspection: normal respiratory effort Auscultation: clear to auscultation bilaterally Percussion: percussion normal Cardio Palpation: normal PMI Rate: regular rate Rhythm: regular rhythm Heart sounds: no murmurs and no rubs Peripheral pulses: Peripheral pulses 2+ throughout GI Inspection: Yes normal to inspection Palpation (GI): Soft to palpation, nontender, no guarding, not rigid and No hepatosplenomegaly present Percussion: Yes normal to percussion Auscultation: normal bowel sounds Rectal Exam - Female: deferred General: Yes bladder normal to palpation External Female Exam: No lesion Speculum Exam - Vagina: normal appearance of the vagina, normal palpation, normal vaginal discharge and not erythematous Speculum Exam - Cervix: normal appearance of the cervix and normal palpation Bimanual exam- vagina & uterus: normal bimanual exam, normal palpation, bladder normal to palpation, consistency normal, normal palpation and enlarged Bimanual Exam- Adnexa, other: normal adnexae, no masses and no tenderness Assessment & Plan Assessment & Plan (1) Well woman exam: Code(s): Z01.419 - Encounter for gynecological examination (general) (routine) without abnormal findings Plan: Co testing done. Counseled the patient about the recommended dietary allowance of 1200 mg of Calcium & 600 IU of vitamin D. Mammogram ordered for 09/26, the patient is scheduled with GI for repeat screening colonoscopy in 2 day . The patient was instructed to perform monthly self-breast exams and schedule annual exam in a year; all questions answered and the patient verbalized understanding. (2) Enlarged uterus: Code(s): N85.2 - Hypertrophy of uterus Plan: Discussed with the patient the finding on pelvic exam, enlarged uterus, the patient history of myomas. Will order pelvic ultrasound to compare the size of previous myomas and treat according. Instructions given the patient to schedule an ultrasound follow-up appointment in 2 weeks. Orders: Orders MM screening mammo BI 2 Months Z12.31 - Encounter for screening mammogram for malignant neoplasm of breast US pelvic and transvaginal Today N85.2 - Hypertrophy of uterus Coding Level of Care Code Est Pt Prev Care 40-64y(51627) Diagnoses Well woman exam Z01.419 Enlarged uterus N85.2
== END 2023-07-09 08:44 | disposition home or self-care (01) ==
PROVIDERS: PCP Internal Medicine; Visit Provider Obstetrics & Gynecology
DX: Z01.419 Encounter for gynecological examination (general) (routine) without abnormal findings (principal); N85.2 Hypertrophy of uterus
CPT/HCPCS: 99396

== ENCOUNTER 2023-07-09 08:03 | Outpatient (REF) | payer OTHER, SELFPAY ==
[2023-07-13 12:48] LABS: HPV mRNA E6/E7 rflx Not Detected (Not Detected)
== END 2023-07-09 08:04 | disposition home or self-care (01) ==
LOC: HO.LNP 08:03
PROVIDERS: PCP Internal Medicine; Visit Provider Obstetrics & Gynecology
DX: Z01.419 Encounter for gynecological examination (general) (routine) without abnormal findings (principal); N85.2 Hypertrophy of uterus
CPT/HCPCS: 87624; 88142

== ENCOUNTER 2023-07-10 16:44 | Outpatient (REF) | payer OTHER, SELFPAY ==
--- NOTE | ~2023-07-10 | US_ITS ---
EXAMINATION: US PELVIS COMPLETE CLINICAL INFORMATION: Hypertrophy of uterus; there is a history of endometrial ablation. COMPARISON: Pelvic ultrasound dated 08/12/2018. TECHNIQUE: Transabdominal and transvaginal imaging were performed. FINDINGS: The uterus is enlarged and heterogeneous in echotexture, measuring 13.5 x 9.0 x 8.3 cm. The uterus is anteverted. Again, the endometrial stripe is not identified with certainty. FIBROIDS: There are 8 fibroids seen. 1. Location: Rightward upper body, subserosal. Size: 2.6 x 1.9 x 2.3 cm. Fibroid characteristics: Hypoechoic. 2. Location: Rightward mid body, subserosal. Size: 2.6 x 1.4 x 1.6 cm. Fibroid characteristics: Heterogeneously hypoechoic. 3. Location: Rightward mid body, subserosal. Size: 2.9 x 3.7 x 2.8 cm. Fibroid characteristics: Heterogeneously hypoechoic. 4. Location: Rightward lower body, subendometrial. Size: 4.9 x 5.2 x 4.6 cm. Fibroid characteristics: Heterogeneously hypoechoic. 5. Location: Fundal, subendometrial. Size: 3.3 x 2.4 x 2.5 cm. Fibroid characteristics: Heterogeneous echotexture. 6. Location: Leftward mid body, myometrial. Size: 3.9 x 2.8 x 3.8 cm. Fibroid characteristics: Heterogeneously hypoechoic. 7. Location: Leftward fundus, myometrial. Size: 2.4 x 2.4 x 2.3 cm. Fibroid characteristics: Heterogeneous echotexture. 8. Location: Left isthmus. Size: 3.1 x 1.9 x 3.1 cm. Fibroid characteristics: Heterogeneously hypoechoic. Both ovaries are of normal size and echogenicity. The right ovary measures 1.6 x 2.4 x 1.5 cm for a volume of 3.0 mL. The left ovary measures 4.1 x 2.7 x 3.1 cm for a volume of 17.9 mL. The left ovary contains a 2.7 cm benign, simple cyst, for which no imaging follow-up is recommended. There is no pelvic free fluid. No adnexal mass is seen. US/US pelvic and transvaginal IMPRESSION: 1. Multiple uterine fibroids are seen. 2. Again, there is nonvisualization of the endometrial stripe.
== END 2023-07-10 16:45 | disposition home or self-care (01) ==
LOC: HO.US 16:44
PROVIDERS: PCP Internal Medicine; Visit Provider Obstetrics & Gynecology
DX: N85.2 Hypertrophy of uterus (principal)
CPT/HCPCS: 76830; 76856

== ENCOUNTER 2023-07-11 08:30 | Day surgery (SDC) | payer OTHER, SELFPAY ==
[2023-07-09 11:58] VITALS: BMI 34.2
--- NOTE | 2023-07-10 10:29 | HO.ANESPROP2 ---
Documented by User: Vicki Pelletier NP 07/10/23 10:30 HPI - Anesthesia Eval Consult details Narrative: 53yo F for Colonoscopy PMFSH Active Problems Active Problems: All Active Problems (Updated 07/09/23 @ 08:39 by Jose Francisco Dempsey MD) Enlarged uterus (Acute) Well woman exam (Acute) Lumbar radiculopathy (Acute) Plantar fasciitis (Acute) Bilateral foot pain (Acute) Vulvar lesion (Acute) Vaginal lesion (Acute) Problematic vaginal discharge (Acute) Colon cancer screening (Acute) Lumbar degenerative disc disease (Acute) Annual physical exam (Acute) Dizziness (Acute) Obesity (BMI 30-39.9) (Acute) Multinodular goiter (Acute) Past Medical History Medical History Lumbar degenerative disc disease Obesity (BMI 30-39.9) Multinodular goiter Family History Family History Father No problems noted. Mother Heart disease Family history of problems with anesthesia: No Surgical History Surgical History Hx of colonoscopy History of lobectomy of thyroid (~07/19/20) History of tubal ligation History of endometrial ablation History of Problems with Anesthesia: No Social History Social History Household Members: Spouse Housing: House Do you presently have visiting nurse or other home services: No Alcohol intake: current Alcohol intake frequency: 0-2 drinks per day Patient Tobacco Use Status: Current someday Tobacco user Tobacco use type: Cigarette Cigarettes Per Day: 3 e-Cigarette/Vaping Use: Never Used Second Hand Smoke Exposure: Yes Have you been hit, kicked, punched, or otherwise hurt by someone within the past year? If so, by whom?: No Are you DNR?: No Advance Directives: No Advance Directives Information Provided: Yes Recently lost weight without trying: No Eating poorly because of decreased appetite: No Nutrition Risks: No Nutritional Risk Patient : No service: No Current occupational status: employed Sexual orientation: Straight/Heterosexual Gender identity: Female Cognitive needs: No Hearing needs: No Vision needs: No Meds Allergies Allergy/AdvReac Type Severity Reaction Status Date / Time doxycycline Allergy Unknown hives Verified 07/09/23 08:25 Exam Exam Date and Time: July 10, 2023 1029 Height,Weight and Vital Signs: Height 5 ft 3 in Weight 87.543 kg Pertinent Lab Results Pertinent Lab Results: Laboratory Tests 02/05/23 02/05/23 09:31 09:31 WBC 4.5 L Hgb 13.0 Hct 38.4 Plt Count 306 Sodium 139 Potassium 4.3 Chloride 108 Carbon Dioxide 24 BUN 9 Creatinine 0.78 Assessment and Plan Assessment Anesthesia Assessment: Chart Reviewed Final Anesthetic Review Family History of Problems with Anesthesia: No History of Problems with Anesthesia: No Documented by User: Mary Hernandez MD 07/11/23 10:01 [facility] Past Medical History Medical History Lumbar degenerative disc disease Obesity (BMI 30-39.9) Multinodular goiter Family History Family History Father No problems noted. Mother Heart disease Surgical History Surgical History Hx of colonoscopy History of lobectomy of thyroid (~07/19/20) History of tubal ligation History of endometrial ablation Social History Social History Household Members: Spouse Housing: House Do you presently have visiting nurse or other home services: No Alcohol intake: current Alcohol intake frequency: 0-2 drinks per day Patient Tobacco Use Status: Current someday Tobacco user Tobacco use type: Cigarette Cigarettes Per Day: 3 e-Cigarette/Vaping Use: Never Used Second Hand Smoke Exposure: Yes Have you been hit, kicked, punched, or otherwise hurt by someone within the past year? If so, by whom?: No Are you DNR?: No Advance Directives: No Advance Directives Information Provided: Yes Recently lost weight without trying: No Eating poorly because of decreased appetite: No Nutrition Risks: No Nutritional Risk Patient : No service: No Current occupational status: employed Sexual orientation: Straight/Heterosexual Gender identity: Female Cognitive needs: No Hearing needs: No Vision needs: No Meds Allergies Allergy/AdvReac Type Severity Reaction Status Date / Time doxycycline Allergy Unknown hives Verified 07/09/23 08:25 Exam Airway Mallampati Class: II TM Dist: >3cm Heart: rrr Lungs: cta Assessment and Plan Assessment Anesthesia Assessment: Anesthesia Plan Discussed Final Anesthetic Review NPO: Yes ASA Class: II Final Preanesthetic Review: No Changes in Pt Med Stat, Meds/Allgs Chart Reviewed, Consent Obtained/Reviewed and Anes Risks/Benef Reviewed Patient Risk: Low Procedure Risk: Low Anesthetic Plan Anesthetic Plan: MAC: Disposition: Standard PACU
[2023-07-11 09:09] VITALS: BP 133/81; PULSE 95; RESP 18; TEMP 36.3; O2SAT 97
--- NOTE | 2023-07-11 09:36 | MHC.SHP ---
Pre-Procedural Eval Section A Date of Service: 07/11/23 The patient is an INPATIENT: No The History & Physical has been completed within 30 days and I have reviewed it.: No Section B Chief Complaint: screening Relevant Family History (Specify if Yes): No Relevant Social History: Tobacco Use Present Medications: see Short Stay Collaborative assessment Medical History: Significant History (Lumbar degenerative disc disease Multinodular goiter Obesity (BMI 30-39.9)) History of Previous Operations: Relevant previous surgery/procedure and date(s) (History of endometrial ablation History of lobectomy of thyroid (~07/19/20) History of tubal ligation Hx of colonoscopy) Allergies: Allergies Allergy/AdvReac Type Severity Reaction Status Date / Time doxycycline Allergy Unknown hives Verified 07/09/23 08:25 Review of Systems Sugical H&P ROS: Negative: Constitution, Cardiovascular, Respiratory and Gastrointestinal Exam Surgical H&P Exam: Normal: Heart, Normal: Lungs, Normal: Extremities and Normal: Abdomen Plan Diagnosis/Plan: Unchanged I have reviewed the history and physical and performed a pertinent physical examination on my patient. No changes have occurred unless specified. Time Spent With Patient Time: Total time managing care of this patient today ____ minutes.
--- NOTE | 2023-07-11 11:36 | W.PM.OPN ---
Operative Note Operative Note Date of Service: 07/11/23 Narrative: COLONOSCOPY TILL CECUM WITH BIOPSIES AND SNARE POLYPECTOMY Pre-op diagnosis: Colon cancer screening, follow-up of colon polyps Post-op diagnosis:? Colon polyps, diverticulosis, hemorrhoids Endoscopist:? Keyshawn Masters MD Anesthesia:?MAC Consent: Indications for the procedure and potential complications of bleeding, perforation, reaction to medications and missed diagnosis were discussed with the patient and informed consent was obtained. Instrument: Olympus CF H 190 L variable stiffness adult colonoscope Monitoring: Vital signs and clinical assessment, intermittent blood pressure monitoring, continuous EKG monitoring, Pulse oximetry and Carbon Dioxide monitoring were done throughout the procedure. Please see anesthesia flowsheet. Colon withdrawl time was 15 minutes. Procedure: The patient was placed in the left lateral decubitis position and pre-procedure medications were administered. After a digital rectal examination of the ano-rectum, the video colonoscope was inserted into the rectum and advanced through the colon to the cecum. The colonoscope was slowly withdrawn in a retrograde panoramic fashion and the colon mucosa was carefully examined including a retroflexed view of the rectum. Findings and interventions are described below. Procedure Difficulty: Without difficulty Findings: Terminal Ileum: Not evaluated Cecum: A 2-3 mm sessile polyp - removed with a cold biopsy Ascending Colon: Normal Transverse Colon: A 10-12 mm sessile polyp in the proximal TC - removed with a hot snare Descending Colon: Normal Sigmoid Colon: Moderate diverticulosis Rectum: Normal Ano-rectum: Moderate internal hemorrhoids Colon preparation: Good Impression and Post Procedure Diagnosis: Colonoscopy Findings: One small and one medium sized polyps removed Moderate diverticulosis seen in the sigmoid colon Moderate hemorrhoids on retroflexed exam. Plan: Await pathology results Patient has an appointment on 07/22/23 in the GI Clinic with Esme Martinez FNP-BC. Repeat Colonoscopy interval based on path results - in 3 years if polyps are adenomatous and 5 years if polyps are hyperplastic (due to family hx of significant colon polyps) Above findings were reviewed with the patient and colon polyps and diverticulosis handouts were given in the discharge area
[2023-07-11 12:14] VITALS: BP 121/65; PULSE 83; RESP 18; TEMP 36.3; O2SAT 96
[2023-07-11 12:29] VITALS: BP 121/65; PULSE 85; RESP 20; TEMP 36.2; O2SAT 97
== END 2023-07-11 13:02 | disposition home or self-care (01) ==
PROVIDERS: PCP Internal Medicine; Visit Provider Internal Medicine Gastroenterology
PROC: 0DJD8ZZ Inspection of Lower Intestinal Tract, Via Natural or Artificial Opening Endoscopic (ICD-10-PCS; CPT 45378; principal; 2023-07-11 10:00)
DX: Z12.11 Encounter for screening for malignant neoplasm of colon (principal); D12.0 Benign neoplasm of cecum; K63.5 Polyp of colon; K57.30 Diverticulosis of large intestine without perforation or abscess without bleeding; K64.8 Other hemorrhoids; F17.210 Nicotine dependence, cigarettes, uncomplicated
CPT/HCPCS: 45385; 45380; 88305; J3010

== ENCOUNTER → 2023-07-11 08:30 | Outpatient (BNV) | payer OTHER, SELFPAY | PROVIDERS: PCP Internal Medicine; Visit Provider Internal Medicine Gastroenterology | DX: Z12.11 Encounter for screening for malignant neoplasm of colon (principal); Z86.010 Personal history of colon polyps; D12.0 Benign neoplasm of cecum; D12.3 Benign neoplasm of transverse colon; K57.30 Diverticulosis of large intestine without perforation or abscess without bleeding; K64.9 Unspecified hemorrhoids | CPT/HCPCS: 45385 ==

== ENCOUNTER 2023-07-15 13:33 | Outpatient (AMB) | payer OTHER, SELFPAY ==
--- NOTE | 2023-07-15 13:50 | HO.SPINEOV ---
Intake Intake Visit Reasons: low back pain and shooting pain on left leg Intake Note: Ms. Matthew De Los Santos is here today c/o low back pain radiating into her Lt. leg. MRI done @ [facility] [place]. Community Specialist Required: No Allergies doxycycline Allergy (Unknown, Verified 07/09/23 08:25) hives Assessment & Plan Assessment & Plan (1) Back pain: Code(s): M54.9 - Dorsalgia, unspecified Plan Dear Ismael, Thank you for referring Mrs Tyson De Los Santos to our office today. 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 She has been through numerous rounds of conservative treatment including physical therapy, medication trial such as Motrin and Tylenol. None of these things of worked through the years. She also has had cortisone injections at [place] [id number] 8 years ago and this did not give her any relief. Her pain is aggravated with standing and walking and if she goes for any distance or she is walking on a hill it will cause her leg pain get significantly worse. She is here today for surgical opinion. PMH: She is otherwise healthy, she is dealing with uterine fibroids, history of thyroidectomy Social hx: She does not smoke Medications: She takes no regular medications. She tries to avoid taking any kind of [id number] pain medication as it typically does not help her pain. Allergies: Doxycycline gives her hives Physical exam: She is awake alert oriented no acute distress, gait is normal, strength reflexes normal Imaging review: Lumbar MRI done at [place], 2022 compared imaging done in 2018 shows a stable severely collapsed disc at L5-S1 causing foraminal narrowing on the left L5 foramen. The rest of her spinal levels the otherwise look okay with just mild degeneration. Impression: 53-year-old female with longstanding history of progressive lower lumbar back pain which will also would down her left leg who has a severely collapsed disc at L5-S1 with foraminal narrowing on the left. She has been through all the no numerous rounds of conservative treatment and none of these things have really ever given her any relief. She is very frustrated with her quality of life as she can no longer walk even more than a few miles before things get so bad she has to discontinue. She is to be able to walk 10 miles. This is caused her to gain weight as well. She is looking for some kind of definitive solution. I reviewed her films with her, and told her that the L5-S1 disc would likely be amenable to fusion. We discussed the typical approach for this which would be an anterior/oblique lumbar interbody fusion. However on her imaging I can see that she has an enlarged uterus and this may be in the way of the disc space. I will need to review this with Dr. Bates to see if this is feasible to get to the anatomy anteriorly. If not we could consider TLIF. We discussed pertinent risks and benefits. I will discuss this case with Dr. Bates and get back to the patient once I have a chance to review the films with him. Thank you for allowing us to care for your patient. The total time spent with this visit with this patient was 45 minutes reviewing history, physical exam, lumbar imaging review, and implementation of treatment plan or further diagnostic testing Anup Bates MD,PhD [facility] Coding Level of Care Code New Pt Level 4 (05101) Diagnoses Back pain M54.9
== END 2023-07-15 14:30 | disposition home or self-care (01) ==
PROVIDERS: PCP Internal Medicine; Visit Provider Physician Assistant
DX: M54.9 Dorsalgia, unspecified (principal)
CPT/HCPCS: 99204

== ENCOUNTER → 2023-07-15 13:33 | Outpatient (BNVA) | payer OTHER, SELFPAY | PROVIDERS: PCP Internal Medicine; Visit Provider Physician Assistant ==

== ENCOUNTER 2023-07-30 07:39 | Outpatient (AMB) | payer OTHER, SELFPAY ==
--- NOTE | 2023-07-30 07:40 | MHC.OFFVIS ---
Intake Vital Signs 07/30/23 07:41 Height 5 ft 3 in Weight 190 lb BMI 33.7 BP 120/74 Intake Visit Reasons: Ultra sound follow up Academic Affairs Specialist Required: No Information Interpreted: non-clinical & clinical Accompanied by: Self / Same As Patient Allergies doxycycline Allergy (Unknown, Verified 07/30/23 07:41) hives Post menopausal: Yes HPI HPI Comments History of Present Illness Details Presenting for ultrasound follow-up for enlarged uterus on pelvic exam. Patient has no complaints, no pelvic pain, or abnormal bleeding. The uterus is enlarged and heterogeneous in echotexture, measuring 13.5 x 9.0 x 8.3 cm. The uterus is anteverted. Again, the endometrial stripe is not identified with certainty. FIBROIDS: There are 8 fibroids seen. 1. Location: Rightward upper body, subserosal. Size: 2.6 x 1.9 x 2.3 cm. Fibroid characteristics: Hypoechoic. 2. Location: Rightward mid body, subserosal. Size: 2.6 x 1.4 x 1.6 cm. Fibroid characteristics: Heterogeneously hypoechoic. 3. Location: Rightward mid body, subserosal. Size: 2.9 x 3.7 x 2.8 cm. Fibroid characteristics: Heterogeneously hypoechoic. 4. Location: Rightward lower body, subendometrial. Size: 4.9 x 5.2 x 4.6 cm. Fibroid characteristics: Heterogeneously hypoechoic. 5. Location: Fundal, subendometrial. Size: 3.3 x 2.4 x 2.5 cm. Fibroid characteristics: Heterogeneous echotexture. 6. Location: Leftward mid body, myometrial. Size: 3.9 x 2.8 x 3.8 cm. Fibroid characteristics: Heterogeneously hypoechoic. 7. Location: Leftward fundus, myometrial. Size: 2.4 x 2.4 x 2.3 cm. Fibroid characteristics: Heterogeneous echotexture. 8. Location: Left isthmus. Size: 3.1 x 1.9 x 3.1 cm. Fibroid characteristics: Heterogeneously hypoechoic. Both ovaries are of normal size and echogenicity. The right ovary measures 1.6 x 2.4 x 1.5 cm for a volume of 3.0 mL. The left ovary measures 4.1 x 2.7 x 3.1 cm for a volume of 17.9 mL. The left ovary contains a 2.7 cm benign, simple cyst, for which no imaging follow-up is recommended. There is no pelvic free fluid. No adnexal mass is seen. Last pelvic ultrasound was done in 2018 which shows 7 myomas largest being 4 cm in size [facility] Medical History Lumbar degenerative disc disease Obesity (BMI 30-39.9) Multinodular goiter Surgical History Hx of colonoscopy History of lobectomy of thyroid (~07/19/20) History of tubal ligation History of endometrial ablation Family History Father No problems noted. Mother Heart disease Social History Household Members: Spouse Housing: House Do you presently have visiting nurse or other home services: No Alcohol intake: current Alcohol intake frequency: 0-2 drinks per day Patient Tobacco Use Status: Current someday Tobacco user Tobacco use type: Cigarette Cigarettes Per Day: 3 e-Cigarette/Vaping Use: Never Used Second Hand Smoke Exposure: Yes service: No Current occupational status: employed Sexual orientation: Straight/Heterosexual Gender identity: Female Cognitive needs: No Hearing needs: No Vision needs: No Female Reproductive History Menstrual Age of Menarche: 15 Review of Systems Const All systems reviewed & are unremarkable except as noted in HPI and below Reports as per HPI and Reports no additional complaints GI Reports no additional complaints Reports no additional complaints Physical Exam Vital Signs: Last Vital Signs BP 120/74 07/30/23 07:41 BMI result Body Mass Index 33.7 Assessment & Plan Assessment & Plan (1) Uterine myoma: Code(s): D25.9 - Leiomyoma of uterus, unspecified Plan: Discussed with the patient the findings on pelvic ultrasound & the risk of myosarcoma; discussed with the patient the options of treatment including expectant management versus hysterectomy; the pros and cons, risks benefits of each approach were discussed with the patient including the fact that in cases of myosarcoma, surgical treatment can lead to early diagnosis and positively affects the prognosis; after further discussion, the patient decided to proceed with expectant management. Will repeat pelvic ultrasound in 6 my. Instructions given to patient to call in case any of the following occurs: pressure symptoms, abnormal uterine bleeding, pelvic pain; and to schedule a 6 month office follow-up repeat ultrasound appointment . All questions answered, the patient verbalized understanding and agreed with the plan . Orders: Orders US pelvic and transvaginal 6 Months D25.9 - Leiomyoma of uterus, unspecified Coding Level of Care Code Est Pt Level 3 (95327) Diagnoses Uterine myoma D25.9
[2023-07-30 07:41] VITALS: BP 120/74; BMI 33.7
== END 2023-07-30 08:08 | disposition home or self-care (01) ==
PROVIDERS: PCP Internal Medicine; Visit Provider Obstetrics & Gynecology
DX: D25.9 Leiomyoma of uterus, unspecified (principal)
CPT/HCPCS: 99213

== ENCOUNTER → 2023-07-30 07:39 | Outpatient (BNVA) | payer OTHER, SELFPAY | PROVIDERS: PCP Internal Medicine; Visit Provider Obstetrics & Gynecology ==

== ENCOUNTER → 2023-09-12 16:30 | Outpatient (BNV) | payer OTHER, SELFPAY | PROVIDERS: PCP Internal Medicine; Referring Provider Obstetrics & Gynecology; Visit Provider Radiology Diagnostic Radiology | DX: Z12.31 Encounter for screening mammogram for malignant neoplasm of breast (principal) | CPT/HCPCS: 77063; 77067 ==

== ENCOUNTER 2023-09-12 16:31 | Outpatient (REF) | payer OTHER, SELFPAY | END 2023-09-12 16:32 | disposition home or self-care (01) | LOC: HO.MAMMO 16:31 | PROVIDERS: PCP Internal Medicine; Referring Provider Obstetrics & Gynecology; Visit Provider Internal Medicine | DX: Z12.31 Encounter for screening mammogram for malignant neoplasm of breast (principal) | CPT/HCPCS: 77063; 77067 ==

== ENCOUNTER 2023-09-18 13:22 | Outpatient (AMB) | payer OTHER, SELFPAY ==
--- NOTE | 2023-09-18 13:38 | A.SPINEOV_ITS ---
Intake Intake Visit Reasons: Meet Dr. Bates Intake Note: Ms. Matthew De Los Santos is here today to meet w/Dr. Bates and discuss surgical plan. Allergies doxycycline Allergy (Intermediate, Verified 09/11/23 12:05) hives Assessment & Plan Assessment & Plan (1) Lumbar degenerative disc disease: Code(s): M51.36 - Other intervertebral disc degeneration, lumbar region Plan Dear colleague, On 09/18/2023 I saw for preoperative visit Keira De Los Santos. She scheduled to undergo a transforaminal lumbar interbody fusion L5-S1, left-sided approach for back pain and left leg pain. We briefly discussed the myoma as a cause for back pain. I think it is more plausible that the degenerative disc is causing her back pain and left lumbar radiculopathy based on the clinical features. We discussed the procedure and expected postoperative course. All questions were answered. I will keep you updated on her progress. Robert Bates MD, PhD Spine Fellowship Trained Neurosurgeon Director, [facility] Coding Level of Care Code Est Pt Level 2 (83273) Diagnoses Lumbar degenerative disc disease M51.36
== END 2023-09-18 14:02 | disposition home or self-care (01) ==
PROVIDERS: PCP Internal Medicine; Visit Provider Neurological Surgery
DX: M51.36 Other intervertebral disc degeneration, lumbar region (principal)
CPT/HCPCS: 99212

== ENCOUNTER → 2023-09-18 13:22 | Outpatient (BNVA) | payer OTHER, SELFPAY | PROVIDERS: PCP Internal Medicine; Visit Provider Neurological Surgery ==

== ENCOUNTER 2023-09-24 06:01 | Inpatient (IN) | payer OTHER, SELFPAY ==
[2023-09-11 12:08] VITALS: BP 145/85; PULSE 67; RESP 16; O2SAT 100; BMI 33.9
[2023-09-24] VITALS (14 sets, daily range): BP systolic 123–156; BP diastolic 73–96; PULSE 73–97; RESP 12–18; TEMP 36.1–36.7; O2SAT 97–100; BMI 33.7
--- NOTE | ~2023-09-24 | FL_ITS ---
EXAMINATION: XR FLUOROSCOPY WITH IMAGES CLINICAL INFORMATION: Fusion. COMPARISON: Mild lumbar spine 06/12/2023. TECHNIQUE: Fluoroscopy Supervised By: Dr. Trotter findings. Fluoroscopy Time: 1.7 minutes. Cumulative Dose: 75.5 mGy. DAP: 9.64 Gycm2. Images: 3. FINDINGS: There are 3 digital images obtained revealing disc prosthesis at the L5-S1 disc level with bilateral L5 and S1 pedicle screws and interconnecting desmond for posterior stabilization. No gross bony abnormality seen. FL/FL guidance in OR IMPRESSION: Fluoroscopy was provided to referring physician for L5-S1 disc
[2023-09-24] MEDS: Gabapentin 300 MG CAPSULE PO (06:32)
[2023-09-24] MEDS: Scopolamine 1.5 MG PATCH.TD.3 TRANSDERMA (06:32)
[2023-09-24] MEDS: methocarbamoL 750 MG TABLET PO (06:32)
[2023-09-24] MEDS: Lactated Ringers 1,000 ML 100 ML IVCONT (06:32)
--- NOTE | 2023-09-24 07:01 | MHC.SHP ---
Pre-Procedural Eval Section A Date of Service: 09/24/23 Section B Chief Complaint: S/P L5-S1 TLIF Allergies: Allergies Allergy/AdvReac Type Severity Reaction Status Date / Time doxycycline Allergy Intermediate hives Verified 09/11/23 12:05 Review of Systems Sugical H&P ROS: Negative: Constitution, Cardiovascular, Respiratory, Neurological, Psychiatric, Hem-Onc, Allergic/Immunologic, Gastrointestinal, Genitourinary, Musculoskeletal, Integumentary, Endocrine and Eyes/Ears/Nose/Throat Exam Surgical H&P Exam: Not Evaluated: HEENT, Not Evaluated: Heart, Not Evaluated: Lungs, Not Evaluated: Extremities, Not Evaluated: Abdomen, Not Evaluated: Skin and Not Evaluated: Neurological Plan Diagnosis/Plan: Unchanged I have reviewed the history and physical and performed a pertinent physical examination on my patient. No changes have occurred unless specified. The plan remains the same, L5-S1 transkambin Time Spent With Patient Time: Total time managing care of this patient today _10___ minutes.
--- NOTE | 2023-09-24 07:10 | PHA.MEDREC ---
Pharmacy Consult ? Medication Reconciliation Pharmacy has completed the medication reconciliation.pharmacy has reviewed the med rec done by nursing
--- NOTE | 2023-09-24 07:20 | P.CONAN_ITS ---
Documented by User: Vicki Pelletier NP 09/23/23 09:10 HPI - Anesthesia Eval Consult details Narrative: 53yo F for L5-S-1 Transkambin Lumbar Interbody Fusion, 09/24/23 No recent illness No CP/SOB >4 mets s/p [place] 07/2023 with MAC Anesthesia Pre-Procedure Meds Is the patient on any of the following meds?: Semaglutide (Ozempic) (Last dose 08/31/23) If Yes to any meds - educate patient: Pt education - increased risk of aspiration and Pt education - possibility of cancelled proc at provider's discretion PMFSH Active Problems Active Problems: All Active Problems (Updated 09/11/23 @ 12:05 by Harmony Goins RN) Uterine myoma (Acute) Back pain (Acute) Enlarged uterus (Acute) Well woman exam (Acute) Lumbar radiculopathy (Acute) Plantar fasciitis (Acute) Bilateral foot pain (Acute) Vulvar lesion (Acute) Vaginal lesion (Acute) Problematic vaginal discharge (Acute) Colon cancer screening (Acute) Annual physical exam (Acute) Dizziness (Acute) Lumbar degenerative disc disease (Acute) Obesity (BMI 30-39.9) (Acute) Multinodular goiter (Acute) Past Medical History Medical History (Updated 09/11/23 @ 12:05 by Harmony Goins, LAMBERTO) PONV (postoperative nausea and vomiting) Lumbar degenerative disc disease Obesity (BMI 30-39.9) Multinodular goiter Family History Family History Father No problems noted. Mother Heart disease Family history of problems with anesthesia: No Surgical History Surgical History (Updated 09/10/23 @ 09:23 by Harmony Goins, LAMBERTO) Hx of colonoscopy History of lobectomy of thyroid (~07/19/20) History of tubal ligation History of endometrial ablation History of Problems with Anesthesia: No Social History Social History (Updated 09/11/23 @ 12:26 by Harmony Goins, LAMBERTO) Household Members: Spouse Housing: House Are you a primary school childcare attendant to a significant other at home: No Do you presently have visiting nurse or other home services: No Alcohol intake: current Alcohol intake frequency: 0-2 drinks per day Patient Tobacco Use Status: Current someday Tobacco user Tobacco use type: Cigarette Smoked in Last 30 Days: Yes e-Cigarette/Vaping Use: Never Used Second Hand Smoke Exposure: Yes Use of substances other than those prescribed or required for medical reasons: No Have you been hit, kicked, punched, or otherwise hurt by someone within the past year? If so, by whom?: No Are you DNR?: No Advance Directives: No Advance Directives Information Provided: Yes Advance Directives on File: No Recently lost weight without trying: Yes How much weight loss: 2-13 pounds Eating poorly because of decreased appetite: Yes Nutrition screen score: 4 Nutrition Risks: No Nutritional Risk Patient : No FDLMP: 2004 : No Poor oral hygiene: No service: No Current occupational status: employed Sexual orientation: Straight/Heterosexual Gender identity: Female Cognitive needs: No Hearing needs: No Vision needs: No Meds Allergies Allergy/AdvReac Type Severity Reaction Status Date / Time doxycycline Allergy Intermediate hives Verified 09/11/23 12:05 Exam Exam Date and Time: September 11, 2023 1222 Height,Weight and Vital Signs: Height 5 ft 3 in Weight 86.8 kg Last Vital Signs Pulse 67 09/11/23 12:08 Resp 16 09/11/23 12:08 BP 145/85 H 09/11/23 12:08 Pulse Ox 100 09/11/23 12:08 O2 Del Method Room Air 09/11/23 12:08 Pertinent Lab Results Pertinent Lab Results: Laboratory Tests 02/05/23 09:31 WBC 4.5 L Hgb 13.0 Hct 38.4 Plt Count 306 Sodium 139 Potassium 4.3 Chloride 108 Carbon Dioxide 24 BUN 9 Creatinine 0.78 Assessment and Plan Assessment Anesthesia Assessment: Anesthesia Plan Discussed, Smoking Cess. Discussed and PAT Visit Final Anesthetic Review Family History of Problems with Anesthesia: No History of Problems with Anesthesia: No Documented by User: Rachael Waller DO 09/24/23 07:28 HPI - Anesthesia Eval Consult details Narrative: 53yo F for L5-S-1 Transkambin Lumbar Interbody Fusion, 09/24/23 No recent illness No CP/SOB >4 mets s/p [place] 07/2023 with MAC Last dose of Ozempic on 08/31/23. Hx of PONV - scopolamine patch behind left ear. Anesthesia Pre-Procedure Meds Is the patient on any of the following meds?: Semaglutide (Ozempic) (last dose 08/31/23) If Yes to any meds - educate patient: Pt education - increased risk of aspiration and Pt education - possibility of cancelled proc at provider's discretion PMFSH Past Medical History Medical History (Updated 09/11/23 @ 12:05 by Harmony Goins, RN) PONV (postoperative nausea and vomiting) Lumbar degenerative disc disease Obesity (BMI 30-39.9) Multinodular goiter Family History Family History Father No problems noted. Mother Heart disease Family history of problems with anesthesia: No Surgical History Surgical History (Updated 09/10/23 @ 09:23 by Harmony Goins, RN) Hx of colonoscopy History of lobectomy of thyroid (~07/19/20) History of tubal ligation History of endometrial ablation History of Problems with Anesthesia: Yes (PONV) Social History Social History (Updated 09/11/23 @ 12:26 by Harmony Goins, RN) Household Members: Spouse Housing: House Are you a primary school childcare attendant to a significant other at home: No Do you presently have visiting nurse or other home services: No Alcohol intake: current Alcohol intake frequency: 0-2 drinks per day Patient Tobacco Use Status: Current someday Tobacco user Tobacco use type: Cigarette Smoked in Last 30 Days: Yes e-Cigarette/Vaping Use: Never Used Second Hand Smoke Exposure: Yes Use of substances other than those prescribed or required for medical reasons: No Have you been hit, kicked, punched, or otherwise hurt by someone within the past year? If so, by whom?: No Are you DNR?: No Advance Directives: No Advance Directives Information Provided: Yes Advance Directives on File: No Recently lost weight without trying: Yes How much weight loss: 2-13 pounds Eating poorly because of decreased appetite: Yes Nutrition screen score: 4 Nutrition Risks: No Nutritional Risk Patient : No FDLMP: 2004 : No Poor oral hygiene: No service: No Current occupational status: employed Sexual orientation: Straight/Heterosexual Gender identity: Female Cognitive needs: No Hearing needs: No Vision needs: No Meds Allergies Allergy/AdvReac Type Severity Reaction Status Date / Time doxycycline Allergy Intermediate hives Verified 09/11/23 12:05 Exam Exam Date and Time: September 24, 2023 0720 Height,Weight and Vital Signs: Height 5 ft 3 in Weight 86.8 kg Last Vital Signs Pulse 67 09/11/23 12:08 Resp 16 09/11/23 12:08 BP 145/85 H 09/11/23 12:08 Pulse Ox 100 09/11/23 12:08 O2 Del Method Room Air 09/11/23 12:08 Vital Signs Pulse Rate 67 09/11/23 12:08 Respiratory Rate 16 09/11/23 12:08 Blood Pressure 145/85 H 09/11/23 12:08 Pulse Oximetry 100 09/11/23 12:08 Oxygen Delivery Method Room Air 09/11/23 12:08 Temperature 97.9 F 09/24/23 06:21 Pulse Rate 85 09/24/23 06:21 Respiratory Rate 16 09/24/23 06:21 Blood Pressure 136/92 H 09/24/23 06:21 Pulse Oximetry 97 09/24/23 06:21 Oxygen Delivery Method Room Air 09/24/23 06:21 Airway Mallampati Class: I TM Dist: >3cm Neck ROM: Full Loose/Missing/Broken Teeth: No Heart: S1S2 Lungs: CTAB Assessment and Plan Assessment Anesthesia Assessment: Anesthesia Plan Discussed and Chart Reviewed Final Anesthetic Review Family History of Problems with Anesthesia: No History of Problems with Anesthesia: Yes (PONV) NPO: Yes ASA Class: II Final Preanesthetic Review: No Changes in Pt Med Stat, Meds/Allgs Chart Reviewed, Consent Obtained/Reviewed and Anes Risks/Benef Reviewed Patient Risk: Low Procedure Risk: Intermediate Anesthetic Plan Anesthetic Plan: GA and Agree w/ Assess. and Plan Disposition: Standard PACU
--- NOTE | 2023-09-24 09:00 | P.DS_ITS ---
DS: Providers Provider Date of Service: 09/25/23 Date of admission: 09/24/23 06:01 Primary care physician: Agustín Miramontes MD DS: Summary Time Attestation Discharge coordination time: Less than 30 minutes Quality: Safe Use of Opioids Does Pt have an Active Cancer Diagnosis on the Problem List?: No Quality: Stroke Does the patient have a stroke diagnosis?: No Physical Exam Vital Signs: Vital Signs: Last Vital Signs Temp 97.9 F 09/24/23 06:21 Pulse 85 09/24/23 06:21 Resp 16 09/24/23 06:21 BP 136/92 H 09/24/23 06:21 Pulse Ox 97 09/24/23 06:21 O2 Del Method Room Air 09/24/23 06:21 BMI result Body Mass Index 33.9 Discharge Plan Discharge Anticipated Discharge Date/Time: 09/25/23 09:06 Patient Disposition: Home, Self-Care Discharge Diagnosis: S/P L5-S1 TLIF Referrals: Agustín Miramontes MD [Primary Care Provider] - 1 Week Discharge Medications: New oxycodone 5 mg tablet 5 mg PO Q6H PRN (Reason: severe pain (scale score 7-10)) Qty: 30 0RF Rx Instructions: Partial Fill upon patient request. Held Wegovy 0.25 mg/0.5 mL pen injector 0.25 mg subcut QWEEK 28 Days Qty: 2 2RF Hold Instructions: Resume on 10/02/23. Discuss with prescriber before restarting Patient Comments: usually takes on Saturday, but currently out of this medication. Last dose 08/31/23 Rx Instructions: administer weeks 1 through 4 of therapy Discharge Orders: Discharge Order (Routine); Ordered 09/25/23 Ordered By: Gui Martin Diet: Advance to usual diet Activity on Discharge: As tolerated Stand Alone Forms: Patient Portal Discharge page Activity Restrictions/Additional Instructions: After your spinal surgery we ask you to observe the following restrictions/guidelines: Activity: With lumbar fusion surgery it is normal to have days in the first couple of weeks where you have increased leg pain. This usually lasts 1-2 days and self resolves with the continuation of medication. Attempt to stay mobile and continue activity as tolerated. It is normal to feel some discomfort as you increase your activity, but that will improve with time. We ask you avoid heavy lifting or activities that cause pain. As a general rule, 8lbs is a safe limit for lifting right after surgery. Walk as much as you feel comfortable but not to exhaustion. You will feel extra tired the first few days after surgery. Stay well hydrated. It is OK to walk up and down stairs You may return to driving when you are off narcotics (such as vicodin, oxycodone, dilaudid, etc), and you are back to normal functional capacity. If you have any concerns please check with office before driving. Return to work is specific to each patient and each surgery, so please speak with your doctor/PA at first follow up. Please bring paperwork such as FMLA at that time if you need it filled out. Medications: It is recommended that you take Tylenol 500 mg every 4 hours for the 1st week postoperatively, alongside ibuprofen 600 mg every 8 hours. We will also be prescribing gabapentin 300 mg to be taken every 8 hours for the 1st month postoperatively. We will give you a short supply of narcotics after surgery (usually one weeks worth). Please use this for breakthrough pain that is refractory to the Tylenol ibuprofen and gabapentin. If you need more please call the office but do not use more than prescribed. You will need to give our office 48 hours notice if you need narcotics refilled and we do not fill narcotics on weekends or evenings. If you are on a narcotic, it is a good idea to take a stool softener such as colace or senna to avoid constipation If you take blood thinner such as aspirin, Plavix, Coumadin, Effient, Eliquis etc for conditions such as Afib, DVT, Pulmonary embolus, coronary disease, stents etc please speak with your surgeon about specific details as to when you can resume these medications. You can resume NSAIDs on post op day 1 (eg: Motrin, Naproxen, etc). Follow up: Please call the office, , after surgery to arrange a 3 week follow up for wound check. Wound Care: You may remove your dressing on the first day after surgery. You may leave open to air. Please do not remove the steri strips underneath. they will fall off on their own in one week. IT IS NORMAL FOR THE WOUND TO OOZE OR BE BLOODY FOR A FEW DAYS AFTER SURGERY. IF THIS HAPPENS JUST PLACE NEW DRESSING OVER IT TO AVOID STAINING CLOTHES. You may shower on post op day # 1 We ask that you do not let the water soak the wound. If it does get wet, just towel dry lightly. Please do not scrub your incision or place any type of chemical/ointment on the wound. No tub baths, pools or jacuzzis for one month. If you have any leaking or redness from your wound, or fevers, please call office Care Plan Goals: Return to normal activity as toelrated. Health Concerns: None. Plan of Treatment: F/U in office in 2-3 weeks. Assessment: POD: 1 Procedure: L5-S1 TLIF Keira is a 53 y/o F who is S/P L5-S1 TLIF. She is doing very well post- operatively and reports that she is very satisfied with her surgery. She reports that her pain is well controlled at this time with pain medications. She reports getting up throughout the night to ambulate and use the bathroom. She was seen upright in bed this morning and and had just finished breakfast. She reported that she feels well and is ready to go home. Afebrile, vital signs stable. Patient has no neurological deficits. She has full strength and sensation in her lower extremities. Her posterior dressings are claen & dry with some staining but no active sero-sanguineous dainage. She meets medical criteria to be discharged home at this time. She was evaluated at bedside by both this parts data writer and the attending neurosurgeon Dr. Bates. A Rx of Oxycodone was sent in to [facility] pharmacy for her for continued pain control.
[2023-09-24] MEDS: HYDROmorphone HCl 0.5 MG/0.5 ML SYRINGE IVPUSH ×2 (10:40→10:53)
--- NOTE | 2023-09-24 10:50 | P.OP_ITS ---
Operative Note Operative Note Date of Service: 09/24/23 Narrative: Preop diagnosis: L5-S1 degenerative disc disease; back pain Postop diagnosis: Same Procedure: Left L5-S1 Complete facetectomy; Diskectomy, arthrodesis and implantation cage; L5-S1 posterior instrumentation; combination of allograft and allograft Consent Informed Consent was obtained for this operation. I have explained the nature, purpose and benefits of the operation. I have discussed the risks and benefit of the operation including possible complications or adverse events with patient/family. Alternative(s) were discussed with the patient with their relative benefits and risks as well as the consequences of not accepting the operation were included in obtaining consent. Surgeon: Robert Bates MD, PhD Assist: chavo Worrell Description of Procedure: This 53-year-old female is suffering from chronic intractable low back pain. MRI shows severe degenerative disc disease L5-S1.. The patient was offered a minimally invasive transforaminal lumbar interbody fusion. Procedure complication explained. The patient was consented. The patient was brought to the operating room endotracheally intubated. The patient was turned in a prone position the Wesley spine table prepping and draping was done followed by time- out. Two C arms were installed for fluoroscopy. Two paramedian incisions were made in preparation for pedicle screw placement. Following steps were taken for pedicle screw placement: First the pediguard tap was used to create a transpedicular trajectory into the vertebral body. Then a K-wire was advanced into the vertebral body. On the contralateral side, a specially designed instrument was advanced over the K-wire, followed by placement of a pedicle screw in the corresponding pedicle and removal of the K-wire. On the ipsilateral side, the K-wires were bent out of the way after which the transforaminal interbody fusion process was started. The paravertebral muscles were released to expose the L5-S1 lamina and facet joint. A high-speed drill was used to a complete facetectomy. The nerve root was retracted medially after which a thorough L5-S1 diskectomy was done. An 8 mm mm trial implants were inserted. More disc material was removed. The endplates were prepared. The anterior 1/3 of disc space was filled with a mixture of autograft and allograft followed by placement of a 10 mm by 32 mm and 6 degree lordosis CTL titanium cage filled with autograft and allograft ending in the the midline on AP fluoroscopic image. Hemostasis was done. The retractor was removed. Finally, pedicle screws were placed over the K-wires and the K-wires were removed. A total 4 pedicle screws were placed with a diameter of 6.5 x 45 mm in the L5 pedicles and 6.5 x 40 mm in the S1 pedicles. The pedicle screws were connected with a 40 mm desmond and locked down with locking caps. Final x-rays in AP and lateral projection showed good position of the interbody device and posterior instrumentation. Hemostasis was done and the incisions were closed with an 0 V icryl to fascia and a 3-0 Vicryl for the subdermal layer. All sponge and needle counts were correct. Patient was extubated and transported in a stable condition to recovery room. This procedure was done with assistance of her physician workforce development assistant who helped an park services specialist in the fluoroscopic imaging, placed pedicle screws and performed hemostasis and closure of the incisions. Anesthesia: General Estimated blood loss: 20 mL Complications: None. OR time: 1 hour and 10 minutes Deposition: Admit to inpatient for observation.
[2023-09-24] MEDS: oxyCODONE HCl Immed Release 5 MG TABLET 10 MG PO (10:52)
[2023-09-24] MEDS: fentaNYL citrate/PF 100 MCG/2 ML VIAL 50 MCG IVPUSH (11:12)
[2023-09-24] MEDS: 0.9 % Sodium Chloride 1,000 ML 75 ML IVCONT (12:06)
[2023-09-24] MEDS: ceFAZolin Sodium/Dextrose,Iso 2 GM/50 ML PIGGYBACK IV ×2 (13:49→19:45)
[2023-09-24] MEDS: Acetaminophen 1,000 MG/100 ML PIGGYBACK 400 MG IV ×2 (14:28→20:21)
[2023-09-24] MEDS: Ketorolac Tromethamine 15 MG/ML VIAL IVPUSH ×2 (15:34→21:54)
[2023-09-24] MEDS: Docusate Sodium 100 MG CAPSULE PO (20:56)
[2023-09-25 00:21] VITALS: BP 108/62; PULSE 83; RESP 18; TEMP 36.6; O2SAT 98
[2023-09-25] MEDS: ceFAZolin Sodium/Dextrose,Iso 2 GM/50 ML PIGGYBACK IV (01:28)
[2023-09-25] MEDS: oxyCODONE HCl Immed Release 5 MG TABLET PO (01:31)
[2023-09-25] MEDS: Acetaminophen 1,000 MG/100 ML PIGGYBACK 400 MG IV ×2 (02:16→10:22)
[2023-09-25] MEDS: 0.9 % Sodium Chloride 1,000 ML 75 ML IVCONT (02:17)
[2023-09-25 03:14] VITALS: BP 119/73; PULSE 86; RESP 18; TEMP 36.3; O2SAT 99
[2023-09-25] MEDS: Ketorolac Tromethamine 15 MG/ML VIAL IVPUSH ×2 (04:35→09:44)
[2023-09-25 06:48] VITALS: BP 135/80; PULSE 80; RESP 16; TEMP 36; O2SAT 96
[2023-09-25 07:55] VITALS: BP 135/80; PULSE 80; O2SAT 96
--- NOTE | 2023-09-25 09:16 | HO.NEUROPN_ITS ---
Neurosurgery Operative Note Date of Service: 09/25/23 Narrative: POD: 1 Procedure: L5-S1 TLIF Keira is a 53 y/o F who is S/P L5-S1 TLIF. She is doing very well post- operatively and reports that she is very satisfied with her surgery. She reports that her pain is well controlled at this time with pain medications. She reports getting up throughout the night to ambulate and use the bathroom. She was seen upright in bed this morning and and had just finished breakfast. She reported that she feels well and is ready to go home. Afebrile, vital signs stable. Patient has no neurological deficits. She has full strength and sensation in her lower extremities. Her posterior dressings are claen & dry with some staining but no active sero-sanguineous dainage. She meets medical criteria to be discharged home at this time. She was evaluated at bedside by both this freelance writer and the attending neurosurgeon Dr. Bates. A Rx of Oxycodone was sent in to [facility] pharmacy for her for continued pain control.
--- NOTE | 2023-09-25 09:29 | HO.POSTANES ---
Post Anesthesia Evaluation Post Anesthesia Evaluation Date of Service: 09/24/23 Vital Signs: Vital Signs Temp Pulse Resp BP Pulse Ox O2 Del Method 09/25/23 07:55 80 135/80 96 09/25/23 06:48 96.8 F 80 16 135/80 96 Room Air 09/25/23 03:14 97.4 F 86 18 119/73 99 Room Air 09/25/23 00:21 98 F 83 18 108/62 98 Room Air Anesthesia: General Endotracheal-GETA Mental Status: Awake Pain Control: Satisfactory Nausea/Vomiting: None Hydration: Adequate Anesthesia-Related Issues: No Anes. Related Issues
--- NOTE | 2023-09-25 09:42 | MHC.CM.PN ---
Female 53 S/P L5-S1 TLIF Patient lives with her . She is independent with all functional mobility. A new HCP has been documented. DP home self care. Patient has arranged for her to provide transportation home. Patient is discharged to home today. DP home self care family transport.
[2023-09-25] MEDS: Docusate Sodium 100 MG CAPSULE PO (09:47)
== END 2023-09-25 11:18 | disposition home or self-care (01) | DRG 304 ==
LOC: HO.SSSA 06:05 → HO.S3 11:03
PROVIDERS: Admitting Provider Neurological Surgery; PCP Internal Medicine; Visit Provider Neurological Surgery
PROC: 0SB40ZZ Excision of Lumbosacral Disc, Open Approach (ICD-10-PCS; principal; 2023-09-24 07:30)
DX: M51.37 Other intervertebral disc degeneration, lumbosacral region (principal); F17.210 Nicotine dependence, cigarettes, uncomplicated; Z71.6 Tobacco abuse counseling; Z79.899 Other long term (current) drug therapy
CPT/HCPCS: 97116; 97162; C1713; J0131; J0690; J1100; J1170; J1885; J2250; J2371; J2405; J2704; J3010; L8699

== ENCOUNTER → 2023-09-24 06:01 | Outpatient (BNV) | payer OTHER, SELFPAY | PROVIDERS: Admitting Provider Neurological Surgery; PCP Internal Medicine; Visit Provider Neurological Surgery | DX: Z48.89 Encounter for other specified surgical aftercare (principal) | CPT/HCPCS: 20930; 20936; 22633; 22840; 22853; 63052; 99024; 99499 ==

== ENCOUNTER 2023-10-09 14:52 | Outpatient (AMB) | payer OTHER, SELFPAY ==
--- NOTE | 2023-10-09 14:56 | MHC.OFFVIS ---
Intake Vital Signs 10/09/23 15:03 Height 5 ft 3 in Weight 195 lb BMI 34.5 BP 132/84 Intake Visit Reasons: consult for hysterectomy Revenue Integrity Analyst Required: No Information Interpreted: non-clinical & clinical Accompanied by: Self / Same As Patient Allergies doxycycline Allergy (Intermediate, Verified 10/09/23 15:04) hives HPI HPI Comments History of Present Illness Details Presenting to discuss hysterectomy as an option of treatment for fibroids. The patient is not having any menstrual cycles, is having urine incontinence and minimal pelvic pressure but no pelvic pain. Last ultrasound was done in 07/27 [facility] Medical History PONV (postoperative nausea and vomiting) Lumbar degenerative disc disease Obesity (BMI 30-39.9) Multinodular goiter Surgical History Hx of colonoscopy History of lobectomy of thyroid (~07/19/20) History of tubal ligation History of endometrial ablation Family History Father No problems noted. Mother Heart disease Social History Household Members: Spouse Housing: House Are you a primary medicare compliance auditor to a significant other at home: No Do you presently have visiting nurse or other home services: No Alcohol intake: current Alcohol intake frequency: 0-2 drinks per day Comment: all counts correct Patient Tobacco Use Status: Current someday Tobacco user Tobacco use type: Cigarette e-Cigarette/Vaping Use: Never Used Second Hand Smoke Exposure: Yes service: No Current occupational status: employed Sexual orientation: Straight/Heterosexual Gender identity: Female Cognitive needs: No Hearing needs: No Vision needs: No Female Reproductive History Menstrual Age of Menarche: 15 Review of Systems Const All systems reviewed & are unremarkable except as noted in HPI and below Reports as per HPI and Reports no additional complaints GI Reports no additional complaints Reports no additional complaints Assessment & Plan Assessment & Plan (1) Uterine myoma: Code(s): D25.9 - Leiomyoma of uterus, unspecified Plan: Pelvic ultrasound ordered compare the size of previous myomas Discussed with the patient the findings on pelvic ultrasound & the risk of myosarcoma; discussed with the patient the options of treatment including expectant management versus hysterectomy; the pros and cons, risks benefits of each approach were discussed with the patient including the fact that in cases of myosarcoma, surgical treatment can lead to early diagnosis and positively affects the prognosis; after further discussion, the patient decided to proceed with pelvic ultrasound and decide accordingly. Instructions given the patient to schedule a 3 week ultrasound follow-up appointment. All questions answered, the patient verbalized understanding and agreed with the plan . Coding Level of Care Code Est Pt Level 3 (18434) Diagnoses Uterine myoma D25.9
[2023-10-09 15:03] VITALS: BP 132/84; BMI 34.5
== END 2023-10-09 15:30 | disposition home or self-care (01) ==
LOC: HO.HWS 14:52
PROVIDERS: PCP Internal Medicine; Visit Provider Obstetrics & Gynecology
DX: D25.9 Leiomyoma of uterus, unspecified (principal)
CPT/HCPCS: 99213

== ENCOUNTER → 2023-10-09 14:52 | Outpatient (BNVA) | payer OTHER, SELFPAY | PROVIDERS: PCP Internal Medicine; Visit Provider Obstetrics & Gynecology ==

== ENCOUNTER 2023-10-15 14:44 | Outpatient (AMB) | payer OTHER, SELFPAY ==
--- NOTE | 2023-10-15 15:01 | A.SPINEOV_ITS ---
Intake Intake Visit Reasons: 1st post op Intake Note: Mrs. Matthew De Los Santos is here today for her 1st post-op visit. Weatherstrip Machine Operator Required: No Allergies doxycycline Allergy (Intermediate, Verified 10/09/23 15:04) [facility] Assessment & Plan Assessment & Plan (1) S/P spinal surgery: Code(s): Z98.890 - Other specified postprocedural states Plan Procedure: L5-S1 TLIF Keira comes in today for her 1st postoperative visit. She reports she is very satisfied with the surgery and feels much better than she did pre-operatively. She reports she is up walking around and completing the majority of her ADLs, including doing her laundry and walking up and downstairs laundry basket. She does report continued mild pain but reports that is well controlled with Tylenol and ibuprofen. She states that she took 12 of her oxycodone after surgery in total for severe pain and then converted completely to spbo-tnw-[id number] medications. No neurological deficits. Patient is able to ambulate well, rises from a seated position without difficulty. Posterior incision sites are closed, well healing, with no signs of drainage. We will follow-up with the patient in 6 weeks for her 2nd postoperative visit. At that time we will get x-rays to review with the patient. Gui Bates MD,PhD [facility] [place] Coding Level of Care Code Global (40539) Diagnoses S/P spinal surgery Z98.890
== END 2023-10-15 15:23 | disposition home or self-care (01) ==
PROVIDERS: PCP Internal Medicine; Visit Provider Physician Assistant
DX: Z98.890 Other specified postprocedural states (principal)
CPT/HCPCS: 99024

== ENCOUNTER → 2023-10-15 14:44 | Outpatient (BNVA) | payer OTHER, SELFPAY | PROVIDERS: PCP Internal Medicine; Visit Provider Physician Assistant ==

== ENCOUNTER 2023-11-22 09:10 | Outpatient (REF) | payer OTHER, SELFPAY ==
--- NOTE | ~2023-11-22 | XR_ITS ---
EXAMINATION: XR LUMBOSACRAL SPINE WITH OBLIQUES CLINICAL INFORMATION: Postprocedural status post L5-S1 posterior fusion with disc spacer. COMPARISON: Fluoroscopic images of 09/24/2023 lumbar spine. MRI lumbar spine 06/12/2023. TECHNIQUE: 4 views of the lumbar spine inclusive of flexion and extension views. FINDINGS: Degenerative changes in the imaged lower thoracic spine. Spondylosis in the remainder of the lumbar spine with loss of disc space height at L3-L4, and at L4-L5. Grade 1 anterolisthesis of L4 on L5 with flexion and extension. Redemonstration of hardware status post posterior fusion at L5-S1 with interconnecting rods and bilateral pedicular screws. Hardware appears intact. Interdisc spacer redemonstrated at L5-S1. XR/XR lumbar spine 4V min IMPRESSION: 1. Redemonstration of hardware status post posterior fusion at L5-S1. Hardware appears intact. 2. Grade 1 anterolisthesis of L4 on L5 with flexion and extension.
== END 2023-11-22 09:11 | disposition home or self-care (01) ==
LOC: HO.HOSX 09:10
PROVIDERS: Visit Provider Physician Assistant
DX: Z98.890 Other specified postprocedural states (principal)
CPT/HCPCS: 72110

== ENCOUNTER 2023-11-22 13:39 | Outpatient (AMB) | payer OTHER, SELFPAY ==
--- NOTE | 2023-11-22 14:01 | MHC.OFFVIS ---
Intake Intake Visit Reasons: 2nd post op with xrays Intake Note: Pt her for 2nd post op with Xrays done Fiberglass Dowel Drawing Operator Required: No Allergies doxycycline Allergy (Intermediate, Verified 11/27/23 09:07) hives [facility] Medical History PONV (postoperative nausea and vomiting) Lumbar degenerative disc disease Obesity (BMI 30-39.9) Multinodular goiter Surgical History Hx of colonoscopy History of lobectomy of thyroid (~07/19/20) History of tubal ligation History of endometrial ablation Family History Father No problems noted. Mother Heart disease Social History Household Members: Spouse Housing: House Are you a primary acute care nurse practitioner to a significant other at home: No Do you presently have visiting nurse or other home services: No Alcohol intake: current Alcohol intake frequency: 0-2 drinks per day Comment: all counts correct Patient Tobacco Use Status: Current someday Tobacco user Tobacco use type: Cigarette e-Cigarette/Vaping Use: Never Used Second Hand Smoke Exposure: Yes service: No Current occupational status: employed Sexual orientation: Straight/Heterosexual Gender identity: Female Cognitive needs: No Hearing needs: No Vision needs: No Female Reproductive History Menstrual Age of Menarche: 15 Assessment & Plan Assessment & Plan (1) S/P spinal surgery: Code(s): Z98.890 - Other specified postprocedural states Plan Procedure: L5-S1 TLIF Keira comes in today for her 1st postoperative visit. She reports she is very satisfied with the surgery and feels much better than she did pre-operatively. She reports she is up walking around and completing the majority of her ADLs, including doing her laundry and walking up and downstairs laundry basket. She does report continued mild pain but reports that is well controlled with Tylenol and ibuprofen. She states that she took 12 of her oxycodone after surgery in total for severe pain and then converted completely to lqdl-dgo-jjembab medications. No neurological deficits. Patient is able to ambulate well, rises from a seated position without difficulty. Posterior incision sites are closed, well healing, with no signs of drainage. We will follow-up with the patient in 6 weeks for her 2nd postoperative visit. At that time we will get x-rays to review with the patient. Gui Batse MD,PhD [facility] Orders: Orders XR lumbar spine 4V min 11/22/23 Z98.890 - Other specified postprocedural states VIVEK Boland Medications: Resumed semaglutide (weight loss) 0.25 mg (0.5 mL) subcut QWEEK 4 weeks 2 mL 2RF E66.9 - Obesity, unspecified Agustín Miramontes MD semaglutide (weight loss) 0.25 mg (0.5 mL) subcut QWEEK 4 weeks 2 mL 2RF E66.9 - Obesity, unspecified Agustín Miramontes MD semaglutide (weight loss) 0.5 mg (0.5 mL) subcut QWEEK 4 weeks 2 mL 1RF E66.9 - Obesity, unspecified Agustín Miramontes MD Coding Level of Care Code Global (20165) Diagnoses S/P spinal surgery Z98.890
== END 2023-11-22 14:23 | disposition home or self-care (01) ==
PROVIDERS: PCP Internal Medicine; Visit Provider Physician Assistant
DX: Z98.890 Other specified postprocedural states (principal)
CPT/HCPCS: 99024

== ENCOUNTER 2023-11-27 09:00 | Outpatient (REF) | payer OTHER, SELFPAY ==
[2023-11-27 10:54] LABS: HBsAGNum1 0.29 S/CO (0.00-0.99); HIV AB/AG Nonreactive (Nonreactive); HIV Num 1 0.05 S/CO (0.00-0.99); Hepatitis B Surface Antigen Negative (Negative); ~HepC Num1 0.08 S/CO (0.00-0.79); ~Hepatitis C Antibody Nonreactive (Nonreactive)
[2023-11-27 10:58] LABS: Syphilis Screen Nonreactive (Nonreactive)
[2023-11-27 12:20] LABS: CT PCR NOT DETECTED (Not Detect.); NG PCR NOT DETECTED (Not Detect.)
[2023-11-28 13:42] LABS: BV Int Neg Control Negative (Negative); BV Int Pos Control Positive (Positive)
== END 2023-11-27 09:01 | disposition home or self-care (01) ==
LOC: HO.LAB 09:00
PROVIDERS: PCP Internal Medicine; Visit Provider Obstetrics & Gynecology
DX: Z11.4 Encounter for screening for human immunodeficiency virus [HIV] (principal); N76.0 Acute vaginitis; B96.89 Other specified bacterial agents as the cause of diseases classified elsewhere; Z20.2 Contact with and (suspected) exposure to infections with a predominantly sexual mode of transmission
CPT/HCPCS: 0353U; 86780; 86803; 87340; 87389; 87480; 87510; 87660

== ENCOUNTER 2023-11-27 09:00 | Outpatient (AMB) | payer OTHER, SELFPAY ==
[2023-11-27 09:01] VITALS: BP 132/84; BMI 32.8
--- NOTE | 2023-11-27 09:01 | A.OFFVIS_ITS ---
Intake Vital Signs 11/27/23 09:01 Height 5 ft 3 in Weight 185 lb 3.013 oz BMI 32.8 BP 132/84 Intake Visit Reasons: BV follow up Game Preserve Manager Required: No Information Interpreted: non-clinical & clinical Child & Adolescent Psychiatrist: Child & Adolescent Psychiatrist Present (Jordyn Wilson BEAU) Accompanied by: Self / Same As Patient Allergies doxycycline Allergy (Intermediate, Verified 11/27/23 09:07) hives Post menopausal: Yes HPI HPI Comments History of Present Illness Details The patient is presenting complaining of vaginal irritation, discharge associated with foul odor, no other associated symptoms or any other complaint PFSH Medical History PONV (postoperative nausea and vomiting) Lumbar degenerative disc disease Obesity (BMI 30-39.9) Multinodular goiter Surgical History Hx of colonoscopy History of lobectomy of thyroid (~07/19/20) History of tubal ligation History of endometrial ablation Family History Father No problems noted. Mother Heart disease Social History Household Members: Spouse Housing: House Are you a primary home care giver to a significant other at home: No Do you presently have visiting nurse or other home services: No Alcohol intake: current Alcohol intake frequency: 0-2 drinks per day Comment: all counts correct Patient Tobacco Use Status: Current someday Tobacco user Tobacco use type: Cigarette e-Cigarette/Vaping Use: Never Used Second Hand Smoke Exposure: Yes service: No Current occupational status: employed Sexual orientation: Straight/Heterosexual Gender identity: Female Cognitive needs: No Hearing needs: No Vision needs: No Female Reproductive History Menstrual Age of Menarche: 15 Review of Systems Const All systems reviewed & are unremarkable except as noted in HPI and below Card Reports as per HPI Resp Reports as per HPI GI Reports as per HPI and Reports no additional complaints Reports as per HPI Physical Exam Vital Signs: Last Vital Signs BP 132/84 11/27/23 09:01 BMI result Body Mass Index 32.8 External Female Exam: normal external appearance and normal appearance of the urethra Speculum Exam - Vagina: normal appearance of the vagina, normal palpation, no lesions and no masses Speculum Exam - Cervix: normal appearance of the cervix, normal palpation, no lesions, no masses and nontender Bimanual exam- vagina & uterus: normal bimanual exam, normal palpation, uterine size normal, normal palpation, uterine shape normal, No Cervical tenderness present and non-tender Bimanual Exam- Adnexa, other: normal adnexae Assessment & Plan Assessment & Plan (1) Bacterial vaginosis: Code(s): N76.0 - Acute vaginitis; B96.89 - Other specified bacterial agents as the cause of diseases classified elsewhere Plan: GC and chlamydia cultures with BV panel taken. Per CDC recommendation, will screen for STI, HepBs Ag, HIV, RPR, Hep C Ab ordered. Will treat with Flagyl 500 mg p.o. b.i.d. x 7 days, Instructions given to the patient to refrain from sexual activity or to use condoms consistently and correctly during the BV treatment regimen, not to douch, it might increase the risk for relapse, and to call if symptoms persist or recur. Orders: Orders Hepatitis C Antibody Today B96.89 - Other specified bacterial agents as the cause of diseases classified elsewhere, N76.0 - Acute vaginitis Hepatitis B Surface Antigen Today B96.89 - Other specified bacterial agents as the cause of diseases classified elsewhere, N76.0 - Acute vaginitis Syphilis Screen Today B96.89 - Other specified bacterial agents as the cause of diseases classified elsewhere, N76.0 - Acute vaginitis HIV Ab/Ag Today B96.89 - Other specified bacterial agents as the cause of diseases classified elsewhere, N76.0 - Acute vaginitis Medications: New metronidazole 500 mg PO BID 14 tabs 0RF 7 days Coding Level of Care Code Est Pt Level 3 (32992) Diagnoses Bacterial vaginosis N76.0; B96.89
== END 2023-11-27 09:32 | disposition home or self-care (01) ==
LOC: HO.HWS 09:00
PROVIDERS: PCP Internal Medicine; Visit Provider Obstetrics & Gynecology
DX: N76.0 Acute vaginitis (principal); B96.89 Other specified bacterial agents as the cause of diseases classified elsewhere
CPT/HCPCS: 99213

== ENCOUNTER 2023-12-24 16:37 | Outpatient (REF) | payer OTHER, SELFPAY ==
--- NOTE | ~2023-12-24 | US_ITS ---
EXAMINATION: US PELVIS COMPLETE CLINICAL INFORMATION: Fibroid uterus; the last menstrual period is not specified. COMPARISON: Pelvic ultrasound dated 07/10/2003. TECHNIQUE: Transabdominal imaging was performed. The patient declined transvaginal imaging. FINDINGS: The uterus is enlarged and heterogeneous echotexture, measuring 13.8 x 8.2 x 8.5 cm. The uterus is anteverted. The endometrial stripe is not visualized. FIBROIDS: There are 7 fibroids seen. 1. Location: Mid rightward body, subserosal. Size: 2.6 x 1.9 x 2.2 cm. Prior: 2.6 x 1.9 x 2.3 cm. Fibroid characteristics: Heterogeneous echotexture. 2. Location: Upper rightward body, subserosal. Size: 3.5 x 3.1 x 3.4 cm. Prior: 2.9 x 3.7 x 2.8 cm. Fibroid characteristics: Heterogeneous echotexture. 3. Location: Rightward fundus, submucosal. Size: 2.0 x 2.0 x 1.4 cm. Prior: 3.3 x 2.4 x 2.5 cm. Fibroid characteristics: Heterogeneous echotexture, with coarse shadowing calcifications. 4. Location: Lower rightward body, myometrial. Size: 5.6 x 5.0 x 6.1 cm. Prior: 4.9 x 5.2 x 4.6 cm. Fibroid characteristics: Heterogeneously hypoechoic. 5. Location: Rightward fundus, subserosal. Size: 1.3 x 0.9 x 1.2 cm. Prior: Not seen. Fibroid characteristics: Hypoechoic. 6. Location: Leftward fundus, subserosal. Size: 1.3 x 1.2 x 1.3 cm. Prior: Not seen. Fibroid characteristics: Hypoechoic. 7. Location: Leftward isthmus, subserosal. Size: 2.4 x 2.0 x 2.6 cm. Prior: 2.4 x 2.4 x 2.3 cm. Fibroid characteristics: Heterogeneously hypoechoic. Both ovaries are of normal size and echogenicity. [The ovaries show normal doppler flow.] The right ovary measures 1.9 x 2.0 x 2.3 cm for a volume of 4.6 mL. The right ovary contains a 1.1 cm benign, simple cyst, for which no imaging follow-up is recommended. The left ovary measures 1.8 x 1.6 x 2.1 cm for a volume of 3.2 mL. There is no pelvic free fluid. No adnexal mass is seen. US/US pelvic and transvaginal IMPRESSION: Multiple uterine fibroids are seen, as detailed. There is secondary nonvisualization of the endometrial stripe.
== END 2023-12-24 16:38 | disposition home or self-care (01) ==
LOC: HO.US 16:37
PROVIDERS: PCP Internal Medicine; Visit Provider Obstetrics & Gynecology
DX: D25.9 Leiomyoma of uterus, unspecified (principal)
CPT/HCPCS: 76830; 76856

== ENCOUNTER 2024-01-01 12:32 | Outpatient (REF) | payer OTHER, SELFPAY ==
[2024-01-02 15:43] LABS: BV Int Neg Control Negative (Negative); BV Int Pos Control Positive (Positive)
== END 2024-01-01 12:33 | disposition home or self-care (01) ==
LOC: HO.LNP 12:32
PROVIDERS: PCP Internal Medicine; Visit Provider Obstetrics & Gynecology
DX: B96.89 Other specified bacterial agents as the cause of diseases classified elsewhere (principal); N76.0 Acute vaginitis
CPT/HCPCS: 87480; 87510; 87660

== ENCOUNTER 2024-01-01 12:32 | Outpatient (AMB) | payer OTHER, SELFPAY ==
--- NOTE | 2024-01-01 12:34 | A.OFFVIS_ITS ---
Intake Vital Signs 01/01/24 12:38 Height 5 ft 3 in Weight 185 lb 3.013 oz BMI 32.8 BP 120/76 Intake Visit Reasons: possible infection Security Trainer Required: No Information Interpreted: non-clinical & clinical Manuscripts Archivist: Manuscripts Archivist Present (Jordyn YANEZ) Accompanied by: Self / Same As Patient Allergies doxycycline Allergy (Intermediate, Verified 01/01/24 12:39) hives Post menopausal: Yes HPI HPI Comments History of Present Illness Details The patient is presenting complaining of vaginal discharge associated with foul odor, no other associated symptoms, vaginal itching or any other complaint. On 11/27/2023 the patient had positive BV was treated with metronidazole p.o. STD screen a months ago were negative [facility] Medical History PONV (postoperative nausea and vomiting) Lumbar degenerative disc disease Obesity (BMI 30-39.9) Multinodular goiter Surgical History Hx of colonoscopy History of lobectomy of thyroid (~07/19/20) History of tubal ligation History of endometrial ablation Family History Father No problems noted. Mother Heart disease Social History Household Members: Spouse Housing: House Are you a primary continuum of care manager to a significant other at home: No Do you presently have visiting nurse or other home services: No Alcohol intake: current Alcohol intake frequency: 0-2 drinks per day Comment: all counts correct Patient Tobacco Use Status: Current someday Tobacco user Tobacco use type: Cigarette e-Cigarette/Vaping Use: Never Used Second Hand Smoke Exposure: Yes service: No Current occupational status: employed Sexual orientation: Straight/Heterosexual Gender identity: Female Cognitive needs: No Hearing needs: No Vision needs: No Female Reproductive History Menstrual Age of Menarche: 15 Review of Systems Const All systems reviewed & are unremarkable except as noted in HPI and below Physical Exam Vital Signs: Last Vital Signs BP 120/76 01/01/24 12:38 BMI result Body Mass Index 32.8 General: Yes no CVA tenderness External Female Exam: normal external appearance and normal appearance of the urethra Speculum Exam - Vagina: normal appearance of the vagina, normal palpation, no lesions and no masses Speculum Exam - Cervix: normal appearance of the cervix, normal palpation, no lesions, no masses and nontender Bimanual exam- vagina & uterus: normal bimanual exam, normal palpation, uterine size normal, normal palpation, uterine shape normal, No Cervical tenderness present and non-tender Bimanual Exam- Adnexa, other: normal adnexae Back/Spine/Pelvis Back: no CVA tenderness Assessment & Plan Assessment & Plan (1) Bacterial vaginosis: Code(s): N76.0 - Acute vaginitis; B96.89 - Other specified bacterial agents as the cause of diseases classified elsewhere Plan: BV panel taken. Will treat with Metrogel 0.75% , one 5 g applicator intravaginally x1 a day for 5 days . Instructions given to the patient to refrain from sexual activity or to use condoms consistently and correctly during the BV treatment regimen, not to douch, it might increase the risk for relapse, and to call if symptoms persist or recur. Medications: New metronidazole 0.75%(37.5mg/5gram) 1 appful vaginal BEDTIME 37.5 grams 0RF 5 days Coding Level of Care Code Est Pt Level 3 (28709) Diagnoses Bacterial vaginosis N76.0; B96.89
[2024-01-01 12:38] VITALS: BP 120/76; BMI 32.8
== END 2024-01-01 13:33 | disposition home or self-care (01) ==
LOC: HO.HWS 12:32
PROVIDERS: PCP Internal Medicine; Visit Provider Obstetrics & Gynecology
DX: N76.0 Acute vaginitis (principal); B96.89 Other specified bacterial agents as the cause of diseases classified elsewhere
CPT/HCPCS: 99213

== ENCOUNTER 2024-01-14 09:17 | Outpatient (AMB) | payer OTHER, SELFPAY ==
--- NOTE | 2024-01-14 09:26 | MHC.OFFVIS ---
Intake Vital Signs 01/14/24 09:29 Height 5 ft 3 in Weight 185 lb 3.013 oz BMI 32.8 BP 122/76 Intake Visit Reasons: ultrasound follow up Allergies doxycycline Allergy (Intermediate, Verified 01/01/24 12:39) hives HPI HPI Comments History of Present Illness Details Presenting for follow-up ultrasound regarding myomas. The patient is not having any vaginal bleeding, complaining of some pelvic bulk related symptoms, no pelvic pain. Pelvic ultrasound done recently showed the following: The uterus is enlarged and heterogeneous echotexture, measuring 13.8 x 8.2 x 8.5 cm. The uterus is anteverted. The endometrial stripe is not visualized. FIBROIDS: There are 7 fibroids seen. 1. Location: Mid rightward body, subserosal. Size: 2.6 x 1.9 x 2.2 cm. Prior: 2.6 x 1.9 x 2.3 cm. Fibroid characteristics: Heterogeneous echotexture. 2. Location: Upper rightward body, subserosal. Size: 3.5 x 3.1 x 3.4 cm. Prior: 2.9 x 3.7 x 2.8 cm. Fibroid characteristics: Heterogeneous echotexture. 3. Location: Rightward fundus, submucosal. Size: 2.0 x 2.0 x 1.4 cm. Prior: 3.3 x 2.4 x 2.5 cm. Fibroid characteristics: Heterogeneous echotexture, with coarse shadowing calcifications. 4. Location: Lower rightward body, myometrial. Size: 5.6 x 5.0 x 6.1 cm. Prior: 4.9 x 5.2 x 4.6 cm. Fibroid characteristics: Heterogeneously hypoechoic. 5. Location: Rightward fundus, subserosal. Size: 1.3 x 0.9 x 1.2 cm. Prior: Not seen. Fibroid characteristics: Hypoechoic. 6. Location: Leftward fundus, subserosal. Size: 1.3 x 1.2 x 1.3 cm. Prior: Not seen. Fibroid characteristics: Hypoechoic. 7. Location: Leftward isthmus, subserosal. Size: 2.4 x 2.0 x 2.6 cm. Prior: 2.4 x 2.4 x 2.3 cm. Fibroid characteristics: Heterogeneously hypoechoic. Both ovaries are of normal size and echogenicity. [The ovaries show normal doppler flow.] The right ovary measures 1.9 x 2.0 x 2.3 cm for a volume of 4.6 mL. The right ovary contains a 1.1 cm benign, simple cyst, for which no imaging follow-up is recommended. The left ovary measures 1.8 x 1.6 x 2.1 cm for a volume of 3.2 mL. There is no pelvic free fluid. No adnexal mass is seen. COUNTS INCLUDE 234 BEDS AT THE [facility] Medical History PONV (postoperative nausea and vomiting) Lumbar degenerative disc disease Obesity (BMI 30-39.9) Multinodular goiter Surgical History Hx of colonoscopy History of lobectomy of thyroid (~07/19/20) History of tubal ligation History of endometrial ablation Family History Father No problems noted. Mother Heart disease Social History Household Members: Spouse Housing: House Are you a primary director critical care to a significant other at home: No Do you presently have visiting nurse or other home services: No Alcohol intake: current Alcohol intake frequency: 0-2 drinks per day Comment: all counts correct Patient Tobacco Use Status: Current someday Tobacco user Tobacco use type: Cigarette e-Cigarette/Vaping Use: Never Used Second Hand Smoke Exposure: Yes service: No Current occupational status: employed Sexual orientation: Straight/Heterosexual Gender identity: Female Cognitive needs: No Hearing needs: No Vision needs: No Female Reproductive History Menstrual Age of Menarche: 15 Review of Systems Const All systems reviewed & are unremarkable except as noted in HPI and below Reports as per HPI and Reports no additional complaints GI Reports no additional complaints Reports no additional complaints Physical Exam Vital Signs: Last Vital Signs BP 122/76 01/14/24 09:29 BMI result Body Mass Index 32.8 Assessment & Plan Assessment & Plan (1) Uterine myoma: Code(s): D25.9 - Leiomyoma of uterus, unspecified Plan: Discussed with the patient the results of the ultrasound and the size of the myomas. Discussed with the patient risk of myosarcoma and symptoms that are caused by myomas including but not limited to pelvic pain, pressure symptoms, abnormal uterine bleeding. In addition discussed with the patient options of treatment for myomas including: Serial ultrasounds periodically to follow-up on the size of the myoma while targeting the treatment against fibroids related symptoms (GnRH agonist/antagonist, uterine artery embolization ) versus surgical treatment including hysterectomy . All pros and cons, risks and benefits of all options were discussed with the patient. The patient understands that delay in surgical treatment in case of myosarcoma can affect her prognosis, after further discussion, the patient decided to think about it and get back to us next visit, meanwhile prefers expectant management. Pelvic ultrasound be repeated within a year. Instructions given the patient to call in case of worsening of bulk related symptoms, pelvic pain or abnormal uterine bleeding. All questions answered, the patient verbalized understanding Coding Level of Care Code Est Pt Level 3 (08196) Diagnoses Uterine myoma D25.9
[2024-01-14 09:29] VITALS: BP 122/76; BMI 32.8
== END 2024-01-14 11:47 | disposition home or self-care (01) ==
LOC: HO.HWS 09:18
PROVIDERS: PCP Internal Medicine; Visit Provider Obstetrics & Gynecology
DX: D25.9 Leiomyoma of uterus, unspecified (principal)
CPT/HCPCS: 99213

== ENCOUNTER → 2024-01-14 09:17 | Outpatient (BNVA) | payer OTHER, SELFPAY | PROVIDERS: PCP Internal Medicine; Visit Provider Obstetrics & Gynecology ==

== ENCOUNTER 2024-02-11 08:50 | Outpatient (AMB) | payer OTHER, SELFPAY ==
--- NOTE | 2024-02-11 08:58 | MHC.PC.OV ---
Vital Signs 02/11/24 09:00 Height 5 ft 3 in Weight 184 lb 4 oz BMI 32.6 BP 124/80 Blood Pressure Location Lt brachial Position Sitting Pulse 60 Pulse Source Pulse Oximeter Pulse Oximetry (%) 98 Oxygen Delivery Method Room Air Intake Visit Reasons: Annual PE Intake Note: Patient is here today for a physical. Swatch Cutter Required: No Health Administration Teacher: Not Required per policy Accompanied by: Self / Same As Patient Allergies doxycycline Allergy (Intermediate, Verified 11/02/24 16:00) hives Medication List - Last Reconciled 02/11/24 by Agustín Miramontes MD semaglutide (weight loss) 0.5 mg (0.5 mL) subcut QWEEK 4 weeks Tobacco use date assessed: 02/11/24 Dental Screening Dental Screen Date: 02/11/24 Did you have a dental visit in the last 12 months?: Yes Did you have a dental problem in the last 6 months where you did not have access to dental care?: No Was dental information given to patient?: Patient has dentist HPI Annual PE HPI Details Patient comes in today for her annual physical examination States that she feels okay She denies any headaches or dizziness Denies any chest pains, no SOB No nausea/vomiting, no abdominal pain No change in bowel habits noted She denies any acute urinary symptoms States that her low back pain and lumbar radicular symptoms have all improved significantly since her back surgery with Dr. Bates in September 2023 States that she has been having trouble sleeping at night lately - is currently going through a divorce after over 30 years of marriage States that she has not been able to get her Semaglutide injections for weight loss for a couple of months now due to the medication being unavailable and her insurance would not cover any other alternatives that are not specifically indicated for weight loss She has been referred to weight management and is scheduled to be seen by medical weight management at [facility] at the end of the month - [place] [facility] was advised they only offer surgical weight loss options here so she had to switch over to [facility] She had her screening colonoscopy done back in July 2023 - (+) tubular adenoma and she is advised to have a repeat colonoscopy done in 3 years (2025) She had her annual mammogram done in September 2023 and her annual gynecology exam and pap smear done in July 2023 She is also being followed by Dr. Dempsey regularly for her uterine fibroids and her last pelvic US done in December 2023 came out g[facility] Medical History (Updated 11/09/24 @ 01:16 by Agustín Miramontes MD) Vitamin D deficiency Essential hypertension PONV (postoperative nausea and vomiting) Lumbar degenerative disc disease Obesity (BMI 30-39.9) Multinodular goiter Surgical History (Updated 11/09/24 @ 01:29 by Agustín Miramontes MD) History of back surgery Hx of colonoscopy History of lobectomy of thyroid (~07/19/20) History of tubal ligation History of endometrial ablation Family History Father No problems noted. Mother Heart disease Social History Household Members: Spouse Housing: House Are you a primary acute care physician to a significant other at home: No Do you presently have visiting nurse or other home services: No Alcohol intake: current Alcohol intake frequency: 0-2 drinks per day Comment: all counts correct Patient Tobacco Use Status: Current someday Tobacco user Tobacco use type: Cigarette Cigarette Packs Per Day: 1 e-Cigarette/Vaping Use: Never Used Second Hand Smoke Exposure: Yes service: No Current occupational status: employed Sexual orientation: Straight/Heterosexual Gender identity: Female Cognitive needs: No Hearing needs: No Vision needs: Yes (Glasses) Female Reproductive History Menstrual Age of Menarche: 15 Questionnaire PHQ-9 Over the last 2 weeks, how often have you been bothered by any of the following problems? 1. Little interest or pleasure in doing things: not at all 2. Feeling down, depressed, or hopeless: not at all 3. Trouble falling or staying asleep, or sleeping too much: not at all 4. Feeling tired or having little energy: not at all 5. Poor appetite or overeating: not at all 6. Feeling bad about yourself - or that you are a failure or have let yourself or your family down: not at all 7. Trouble concentrating on things, such as reading the newspaper or watching television: not at all 8. Moving or speaking so slowly that other people could have noticed. Or the opposite - being so fidgety or restless that you have been moving around a lot more than usual: not at all 9. Thoughts that you would be better off or of hurting yourself in some way: not at all Total score: 0 Depression Screening Interpretation: Negative Depression Screening Done: Yes 41257 - PHQ-9 Billing: Yes Source: Developed by Drs. Devaughn Lauren, Mallory Garcia, Timothy Alegre and colleagues, with an educational shara from [employer] Thrive Questionnaire Date Thrive assessed: 02/11/24 I am a: Patient What is your living situation today?: I have a steady place to live Within the past 12 months, did the food you bought not last and you didn't have the money to get more?: Never true Within the past 12 months, did you worry whether your food would run out before you got money to buy more?: Never true Do you have trouble paying for medicines?: No Do you have trouble getting transportation to medical appointments?: No Do you have trouble paying your heating and electricity bill?: No Do you have trouble taking care of your child, family member or friend?: No Do you have trouble with day-to-day activities such as bathing, preparing meals, shopping, managing finances, etc.?: No Are you currently unemployed and looking for a job?: No Are you interested in more education?: No Currently or been in a relationship where the following occur: no concerns reported THRIVE Score: 0 AUDIT C Alcohol Use Questionnaire (AUDIT-C) 1. How often do you have a drink containing alcohol?: Monthly or less 2. How many drinks containing alcohol do you have on a typical day when you are drinking?: 1 or 2 Total Score: 1 Score Reviewed/Action Taken: Yes MYRA-7 AMB Questionnaire MYRA-7 Date MYRA - 7 assessed: 02/11/24 Feeling nervous, anxious, or on edge: 0 = Not at all Not being able to stop or control worryin = Not at all Worrying too much about different things: 0 = Not at all Trouble relaxin = Not at all Being so restless that it is hard to sit still: 0 = Not at all Becoming easily annoyed or irritable: 0 = Not at all Feeling afraid as if something awful might happen: 0 = Not at all Total MYRA-7 score (0-4 normal; 5-9 mild; 10-14 moderate; 15-21 severe): 0 Source: Developed by Drs. Devaughn Lauren, Mallory Garcia, Timothy Alegre and colleagues, with an educational shara from [employer]. Review of Systems Const Denies chills, Reports difficulty sleeping, Denies fatigue, Denies fever(s), Denies headache(s) and Denies malaise Eyes Denies blurry vision, Denies change in vision, Denies irritation and Denies itchy eyes ENT Denies dysphagia, Denies dizziness, Denies otalgia, Denies headache(s), Denies nasal congestion, Denies neck pain, Denies odynophagia, Denies sinus pain and Denies sore throat Card Denies chest pain, Denies rapid heart rate, Denies irregular heart rhythm, Denies palpitations and Denies dyspnea Resp Denies chest congestion, Denies cough, Denies dyspnea and Denies wheezing GI Denies abdominal pain, Denies bloating, Denies constipation, Denies dysphagia, Denies heartburn, Denies diarrhea, Denies nausea, Denies odynophagia and Denies vomiting Denies hematuria, Denies urinary frequency, Denies dysuria, Denies urinary incontinence and Denies urinary urgency Musc Reports back pain (over the lower back, on and off), Denies arthralgias, Denies joint swelling, Denies muscle weakness, Denies neck pain and Denies radiating pain into limb Skin/Breast Denies breast pain, Denies breast mass, Denies change in pigmentation, Denies lesions, Denies rash and Denies unusual bruising Neuro Denies dizziness, Denies headache(s) and Denies paresthesias Psych Denies anxiety and Denies depression Endo Denies fatigue and Denies palpitations Lv/Lymph Denies easy bruising Aller/Immun Denies itchy eyes and Denies wheezing Physical exam (Primary Care) Vital Signs: Last Vital Signs Pulse 60 02/11/24 09:00 BP 124/80 02/11/24 09:00 Pulse Ox 98 02/11/24 09:00 Oxygen Delivery Method Room Air 02/11/24 09:00 BMI result Body Mass Index 32.6 Tobacco/Smoking Status: Tobacco use Status Tobacco use date assessed 04/09/24 04/09/24 09:06 Patient Tobacco Use Status Current someday Tobacco 02/11/24 09:06 Tobacco use type Cigarette 02/11/24 09:06 e-Cigarette/Vaping Use Never Used 02/11/24 09:06 PHQ-9: PHQ-9 Score PHQ-9: Total score 0 02/11/24 09:55 Depression Screening Interpretation: Negative Thrive Assessment: Date of Thrive Assessment Date Thrive assessed 02/11/24 02/11/24 09:06 Currently or been in a relationship where the following occur: no concerns reported Const General: no acute distress, alert and awake Orientation/consciousness: patient oriented x3 HENMT Head: Yes normocephalic and Yes atraumatic Ears: external ears normal, TM's normal bilaterally and EAC's normal General nose exam: No nasal discharge present Face and sinus: Yes normal facial exam and Yes sinuses nontender Teeth and gingiva: dentition normal Throat: Yes posterior oropharynx normal and Yes tonsils normal (no TP congestion) Eyes Eyelids: Yes eyelids normal Conjunctivae: conjunctivae normal Pupils: Equal, round and reactive pupils present EOM: EOMs intact bilaterally Neck Neck: Yes no lymphadenopathy and Yes supple Thyroid: Thyroid normal Resp Auscultation: clear to auscultation bilaterally, no rales and no wheezes Cardio Rate: regular rate Rhythm: regular rhythm Heart sounds: no murmurs GI Palpation (GI): Soft to palpation, nontender and No hepatosplenomegaly present Auscultation: normal bowel sounds General: Yes no CVA tenderness Back/Spine/Pelvis Back: no CVA tenderness Thoracic/Lumbar Spine: lumbar spinal tenderness (mild) Skin Lesions: no lesions Rashes: no rashes Neuro General: patient oriented x3, moves all extremities, no focal motor deficits and CN's II-XI intact bilaterally Cranial nerves: Yes Equal, round and reactive pupils present Cognition (Neuro): normal cognition Gait exam (Neuro): Normal gait present Extrem General: Yes no clubbing, cyanosis or edema Coding Level of Care Code Est Pt Prev Care 40-64y(61816) Diagnoses Annual physical exam Z00.00 Multinodular goiter E04.2 Degeneration of intervertebral disc of lumbar region with discogenic back pain and lower extremity pain M51.362 Disc-related pain type: discogenic back pain and lower extremity pain Obesity (BMI 30-39.9) E66.9
[2024-02-11 09:00] VITALS: BP 124/80; PULSE 60; O2SAT 98; BMI 32.6
== END 2024-02-11 09:34 | disposition home or self-care (01) ==
PROVIDERS: PCP Internal Medicine; Visit Provider Internal Medicine
DX: Z00.00 Encounter for general adult medical examination without abnormal findings (principal); E04.2 Nontoxic multinodular goiter; E66.9 Obesity, unspecified
CPT/HCPCS: 99499

== ENCOUNTER 2024-02-12 07:55 | Outpatient (REF) | payer OTHER, SELFPAY ==
[2024-02-12 08:24] LABS: MANUAL DIFF FLAG NO
[2024-02-12 09:30] LABS: Eosinophils Absolute Auto 0.1 X10*3/uL (0.0-0.4); Eosinophils Percent Auto 2.3 % (0-4); Hematocrit 42.6 % (37.0-47.0); Hemoglobin 14.4 g/dl (12.0-16.0); Imm Gran Abs Auto 0.01 X10*3/uL (0.00-0.03); Imm Gran Pct Auto 0.3 % (0.0-0.4); Lymphocytes Absolute Auto 1.7 X10*3/uL (1.2-4.9); Lymphocytes Percent Auto 43.9 % (20-40); Mean Corpuscular HGB Conc 33.8 g/dl (31.0-35.0); Mean Corpuscular Hemoglobin 30.6 pg (27.0-33.0); Mean Corpuscular Volume 90.4 fL (80.0-98.0); Mean Platelet Volume 11.1 fL (9.4-12.3); Monocytes Absolute Auto 0.5 X10*3/uL (0.1-1.2); Monocytes Percent Auto 12.1 % (2-11); Neutrophils Absolute Auto 1.6 x10*3/uL (2.0-8.3); Neutrophils Percent Auto 40.4 % (45-73); Platelet Count 260 X10*3/uL (160-400); Red Blood Count 4.71 X10*6/uL (4.20-5.50); Red Cell Distribution Width 12.8 % (11.0-16.0); White Blood Count 3.9 X10*3/uL (4.8-10.8)
[2024-02-12 09:43] LABS: Appearance Urine Clear; Color Urine Dark Yellow; Glucose Urine UA Negative (Negative); Leukocyte Esterase Urine Negative (Negative); Nitrite Urine Negative (Negative); PH 5.5 (5.0-9.0); Urine Blood Negative (Negative); Urine Ketones Trace mg/dL (Negative); Urine Protein Trace mg/dL (Neg-Trace)
[2024-02-12 10:03] LABS: Alanine Aminotransferase 23 U/L (0-31); Albumin Level 4.2 g/dL (3.5-5.0); Alkaline Phosphatase 74 U/L (39-117); Anion Gap 15 (12-20); Aspartate Amino Transferase 21 U/L (5-31); Bilirubin Total 0.5 mg/dL (0.0-1.0); Blood Urea Nitrogen 8 mg/dL (9-16); Calcium 9.4 mg/dL (8.4-10.2); Carbon Dioxide 23 mmol/L (22-29); Chloride 105 mmol/L (96-108); Cholesterol 159 mg/dL (<200); Estimated Glomerular Filt Rate > 60; Glucose Fasting 121 mg/dL (60-99); HDL Cholesterol 59 mg/dL (>40); LDL Cholesterol Calculated 79 mg/dL (<100); Potassium 4.1 mmol/L (3.3-5.1); Sodium 139 mmol/L (135-145); Total Protein 7.5 g/dL (6.5-8.0); Triglycerides 109 mg/dL (<150)
[2024-02-12 10:21] LABS: TSH reflex Free T4 0.44 uIU/mL (0.32-4.0); Vitamin D 25-OH Total 7.5 ng/mL (>30)
== END 2024-02-12 07:56 | disposition home or self-care (01) ==
LOC: HO.LAB 07:55
PROVIDERS: Visit Provider Internal Medicine
DX: Z00.00 Encounter for general adult medical examination without abnormal findings (principal); D64.9 Anemia, unspecified; E78.00 Pure hypercholesterolemia, unspecified; R30.0 Dysuria; E55.9 Vitamin D deficiency, unspecified
CPT/HCPCS: 36415; 80053; 80061; 81003; 82306; 84443; 85025

== ENCOUNTER → 2024-03-27 07:57 | Outpatient (REF) | payer OTHER, SELFPAY ==
--- NOTE | 2024-03-27 08:00 | CA_ITS ---
Acquisition Time: 2024-03-27 08:39:05 Total Exercise Time: 00:09:00 Test Indications: R94.31 - Abnormal electrocardio Medications: Protocol: HILARY Max HR: 151 BPM 89% of Pred: 169 BPM Max BP: 156/100 mmHG Max Work Load: 10.1 METS Exercise stress test exercise 9 min of Hilary protocol 89% MPHR, without chest pain or shortness of breath, with mid upper back pain baseline 3/10, at peak 5-6/10, with isolated PVCs, with intinal BP high, rechecked normal, with normotensive response to exercise, withT wave inversion leads 2, V3-V6. Test reviewed with Dr. Barlow. last BP 138/92 Referred By: Chencho Hills Overread By: Estelita Patten
== END ==
LOC: HO.CARD 07:57
PROVIDERS: PCP Internal Medicine; Visit Provider Internal Medicine Gastroenterology
DX: R94.31 Abnormal electrocardiogram [ECG] [EKG] (principal)
CPT/HCPCS: 93017

== ENCOUNTER → 2024-03-27 08:00 | Outpatient (BNV) | payer OTHER, SELFPAY | PROVIDERS: PCP Internal Medicine; Visit Provider Nurse Practitioner | DX: I49.3 Ventricular premature depolarization (principal) | CPT/HCPCS: 93016; 93018 ==

== ENCOUNTER → 2024-04-15 09:02 | Outpatient (REF) | payer OTHER, SELFPAY ==
--- NOTE | 2024-04-15 09:04 | CA_ITS ---
Transthoracic Echocardiogram Patient (Last, First, Middle): Keira Crabtree J Gender: Female Date of : 1970 Age: 53 Procedure Date: 04/15/2024 Procedure Type: Transthoracic Echocardiogram Location: OP Height: 160.02 cm Weight: 81.99 kg BSA: 1.85 m2 Heart Rate: bpm BP: 128 / 86 mmHg Rn Supplemental: TO Referring MD: Chencho Hills MD Symptoms: R94.31 - Abnormal electrocardiogram [ECG] [EKG] Study Quality: Fair/Contrast ECG Rhythm: Sinus Conclusions: - The left ventricular systolic function is normal. The calculated ejection fraction is 63% by biplane method. - No obvious valvular pathology seen on this study. - There is no evidence of pulmonary hypertension. Findings Procedure Information Contrast agent, definity, is being given per protocol without apparent complications. Left Ventricle Normal left ventricular cavity size. There is normal left ventricular wall thickness. The left ventricular systolic function is normal. The calculated ejection fraction is 63% by biplane method. There is no evidence of regional wall motion abnormalities. Diastolic function is normal for age. Right Ventricle Normal right ventricular cavity size and systolic function. Atria Both atria are normal in size. Aortic Valve There is a normal trileaflet aortic valve. There is no aortic valve stenosis. There is no aortic valve regurgitation. Mitral Valve The mitral valve appears normal. There is no mitral valve regurgitation. There is no mitral valve stenosis. Pulmonic Valve The pulmonic valve is likely normal. Tricuspid Valve Normal tricuspid valve structure. There is trace tricuspid valve regurgitation. There is no evidence of pulmonary hypertension. Great Vessels The asc aorta is normal in size. Venous The inferior vena cava is normal in size and collapses greater than 50% with inspiration. Pericardium/Pleural There is no evidence of pericardial effusion. Prior Study Comparison No prior study available for comparison. Recommendations, Care & Conclusions No obvious valvular pathology seen on this study. Measurements 2D Linear Measurements IVSd: 0.88 0.6-0.9/0.6-1.0 cm LVIDd: 4.56 3.9-5.3/4.2-5.9 cm LVIDd Index: 2.46 2.4-3.2/2.2-3.1 cm/m2 LVIDs: 3.02 2.0-3.6 cm LVPWd: 0.75 0.7-1.1 cm LA Diam: 3.20 2.7-3.8/3.0-4.0 cm LAIDs Index: 1.73 1.5-2.3 cm/m2 LV Mass: 148.29 67-162/88-224 g LV Mass Index: 80.16 43-95/49-115 g/m2 LVOT Diam: 2.00 3.0+(-)1.3 cm 2D Systolic Function EF 4C: 57.20 >55% EF 2C: 67.30 >55% EF BiP: 63.20 >55% Mitral Valve MV VTI: 0.23 MV Pk Fidel: 1.13 MV Mn Fidel: 0.77 MV Pk Grad: 5.00 MV Mn Grad: 3.00 MV Pk E: 0.85 MV PK A: 0.98 MV Decel Time: 159.00 E/A: 0.90 E'Lateral: 7.83 E'Medial: 7.94 E/E' Med: 10.70 E/E' Lat: 10.90 PHT: 47.00 MVA PHT: 4.68 MVA Continuity: 2.95 Decel [place]: 5.36 Aortic Valve AoV Pk Fidel: 1.54 AoV Mn Fidel: 1.07 AoV VTI: 0.30 AoV Pk Grad: 9.00 Aov Mn Grad: 5.00 CAYLA Cont.VTI: 2.30 LVOT LVOT Pk Fidel: 1.02 LVOT Mn Fidel: 0.70 LVOT VTI: 0.22 LVOT Pk Grad: 4.00 LVOT Mn Grad: 2.00 LVOT Diam: 2.00 LVOT Area: 3.14 Diastolic Function MV Pk E: 0.85 MV Pk A: 0.98 E/A: 0.90 E'Medial: 7.94 E/E' Med: 10.70 E' Laterial: 7.83 E/E' Lat: 10.90 Right Ventricle TAPSE (mm): 22.40 TVS' Fidel: 11.50 Tricuspid Valve TR Pk Fidel: 2.50 TR Pk Grad: 25.00 RA Press: 3.00 RVSP: 28.00 Great Vessels Aorta Sinus of Valsalva: 2.69 2.0-3.5 cm Ao Asc: 3.00 2.1-3.4 cm Updated in Other Vendor System with Status of Final Robson Dunlap MD electronically signed on 04/16/2024 11:02:37 AM with status of Final
== END ==
LOC: HO.CARD 09:02
PROVIDERS: PCP Internal Medicine; Visit Provider Internal Medicine Gastroenterology
DX: R94.31 Abnormal electrocardiogram [ECG] [EKG] (principal)
CPT/HCPCS: 93306; Q9957

== ENCOUNTER → 2024-04-15 09:04 | Outpatient (BNV) | payer OTHER, SELFPAY | PROVIDERS: PCP Internal Medicine; Visit Provider Internal Medicine | DX: R94.31 Abnormal electrocardiogram [ECG] [EKG] (principal) | CPT/HCPCS: 93306 ==

== ENCOUNTER → 2024-05-01 11:05 | Outpatient (REF) | payer OTHER, SELFPAY ==
--- NOTE | 2024-05-01 11:09 | CA_ITS ---
Acquisition Time: 2024-05-01 11:01:30 Total Exercise Time: 00:10:45 Test Indications: Abnormal ECG ABN ETT Medications: SEMIGLUTIDE Protocol: HILARY Max HR: 164 BPM 97% of Pred: 169 BPM Max BP: 148/082 mmHG Max Work Load: 12.9 METS Exercise stress test exercise 10 min 45 sec of Hilary protocol achieving 97% MPHR,without chest pain, 6/10 mid back pain, with mild SOB, with isolated PVCs, with normotensive response to exercise, with T wave inversions leads 2, aVF, V3-V6. . Echo images by tech at rest and immediately post peak exercise. Definity contrast used. Test reviewed with Dr. Mijares STRESS ECHO : Technique : Images were obtained at rest and immediately post exercise within 1 minute 30 seconds for wall motion analysis. Definity contrast was used to enhance endocardial definition. Images were obtained in multiple views and compared side to side. Findings : Images at rest are of good quality. LV systolic function is normal with normal wall motion. Diastolic function at rest is normal. Post exercise images are of adequate quality. There is goo augmentation of LV systolic function with normal wall motion, LV diastolic function is normal. Conclusion : Stress echo is negative for ischemia or diastolic dysfunction Referred By: Chencho Hills Overread By: ERNESTO MIJARES MD
== END ==
LOC: HO.CARD 11:05
PROVIDERS: PCP Internal Medicine; Visit Provider Internal Medicine Gastroenterology
DX: R94.31 Abnormal electrocardiogram [ECG] [EKG] (principal)
CPT/HCPCS: 93350; Q9957

== ENCOUNTER → 2024-05-01 11:09 | Outpatient (BNV) | payer OTHER, SELFPAY | PROVIDERS: PCP Internal Medicine; Visit Provider Internal Medicine Cardiovascular Disease | DX: R94.31 Abnormal electrocardiogram [ECG] [EKG] (principal); R06.02 Shortness of breath | CPT/HCPCS: 93351; 93352 ==

== ENCOUNTER 2024-06-01 12:57 | Outpatient (AMB) | payer OTHER, SELFPAY ==
[2024-06-01 13:11] VITALS: BP 130/68; PULSE 94; BMI 31.6
--- NOTE | 2024-06-01 13:11 | MHC.OFFVIS ---
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 She really does not have any history of cardiac issues. Apparently was having some back pain and that led to an EKG followed by stress testing. Patient herself does not have any clear-cut symptoms like angina or shortness of breath or in fact anything cardiac sounding at all. [facility] Medical History (Updated 03/20/24 @ 10:54 by Chencho Hills MD) PONV (postoperative nausea and vomiting) Lumbar degenerative disc disease Obesity (BMI 30-39.9) Multinodular goiter Surgical History (Updated 02/11/24 @ 09:53 by Agustín Miramontes MD) History of back surgery Hx of colonoscopy History of lobectomy of thyroid (~07/19/20) History of tubal ligation History of endometrial ablation Family History Father No problems noted. Mother Heart disease Social History Household Members: Spouse Housing: House Are you a primary career coordinator to a significant other at home: No Do you presently have visiting nurse or other home services: No Alcohol intake: current Alcohol intake frequency: 0-2 drinks per day Comment: all counts correct Patient Tobacco Use Status: Current someday Tobacco user Tobacco use type: Cigarette Cigarette Packs Per Day: 1 e-Cigarette/Vaping Use: Never Used Second Hand Smoke Exposure: Yes service: No Current occupational status: employed Sexual orientation: Straight/Heterosexual Gender identity: Female Cognitive needs: No Hearing needs: No Vision needs: Yes (Glasses) Female Reproductive History Menstrual Age of Menarche: 15 Review of Systems Const Denies weakness ENT Denies dizziness Card Denies chest pain, Denies chest pain with activity, Denies syncope, Denies rapid heart rate, Denies pedal edema, Denies edema, Denies leg edema, Denies lightheadedness, Denies palpitations, Denies dyspnea, Denies dyspnea on exertion and Denies orthopnea Resp Denies cough, Denies dyspnea and Denies dyspnea on exertion GI Denies hematochezia and Denies change in stool character Musc Denies abnormal gait, Denies muscle cramps, Denies muscle weakness, Denies numbness, Denies radiating pain into limb and Denies tingling Neuro Denies abnormal gait, Denies dizziness, Denies syncope, Denies numbness, Denies tingling and Denies weakness Endo Denies palpitations Physical Exam Vital Signs: Last Vital Signs Pulse 94 06/01/24 13:11 BP 130/68 06/01/24 13:11 BMI result Body Mass Index 31.6 Const General: comfortable and no acute distress Orientation/consciousness: patient oriented x3 HEENT Other: Unremarkable Head: Yes normal to inspection Neck Neck: Yes normal visual inspection Chest Chest palpation & inspection: normal inspection of the chest Resp Auscultation: clear to auscultation bilaterally Cardio Palpation: normal PMI Heart sounds: S1 normal heart sound present, S2 normal heart sound present, no gallops, no murmurs and no rubs GI Palpation (GI): Soft to palpation Back/Spine/Pelvis Other: unremarkable Skin General skin exam: no rashes or lesions noted Neuro General: patient oriented x3 Extrem General: Yes normal to inspection Psych Mental Status: mental status grossly normal Assessment & Plan Assessment & Plan (1) Abnormal ECG: Code(s): R94.31 - Abnormal electrocardiogram [ECG] [EKG] Category: Medical Plan Cardiac studies reviewed. Baseline EKG with underlying sinus rhythm with nonspecific ST-T changes. Underwent ETT and that does not show any clear-cut ischemic findings. She also had an exercise stress echocardiogram-EKG portion thought to be abnormal but the echocardiographic component does not show any abnormal findings. In the transthoracic echocardiogram, LVEF 63%. No significant valvular findings. Overall, back pain is likely noncardiac in nature. Testing above is reassuring. Can hold off anything further. Discussed with patient. Coding Level of Care Code New Pt Level 3 (77677) Diagnoses Abnormal ECG R94.31
== END 2024-06-01 14:45 | disposition home or self-care (01) ==
PROVIDERS: PCP Internal Medicine; Visit Provider Internal Medicine
DX: R94.31 Abnormal electrocardiogram [ECG] [EKG] (principal)
CPT/HCPCS: 99213

== ENCOUNTER → 2024-06-01 12:57 | Outpatient (BNVA) | payer OTHER, SELFPAY | PROVIDERS: PCP Internal Medicine; Visit Provider Internal Medicine ==

== ENCOUNTER 2024-08-06 13:40 | Outpatient (AMB) | payer OTHER, SELFPAY ==
[2024-08-06 13:42] VITALS: BP 134/86; PULSE 92; BMI 32.7
--- NOTE | 2024-08-06 13:42 | A.OFFVIS_ITS ---
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 She states that she has been checking her blood pressures recently and it has been in the 140/150s. Hence she is concerned. In the past, she has had intermittent elevations in blood pressures but mostly normal otherwise. She is not on any blood pressure medications. Otherwise, she has had a stress test in the past for back pain. No other specific symptoms at this time like chest pains or shortness of breath. [facility] Medical History (Updated 08/06/24 @ 15:30 by Robson Dunlap MD) PONV (postoperative nausea and vomiting) Lumbar degenerative disc disease Obesity (BMI 30-39.9) Multinodular goiter Surgical History History of back surgery Hx of colonoscopy History of lobectomy of thyroid (~07/19/20) History of tubal ligation History of endometrial ablation Family History Father No problems noted. Mother Heart disease Social History Household Members: Spouse Housing: House Are you a primary resident care assistant to a significant other at home: No Do you presently have visiting nurse or other home services: No Alcohol intake: current Alcohol intake frequency: 0-2 drinks per day Comment: all counts correct Patient Tobacco Use Status: Current someday Tobacco user Tobacco use type: Cigarette Cigarette Packs Per Day: 1 e-Cigarette/Vaping Use: Never Used Second Hand Smoke Exposure: Yes service: No Current occupational status: employed Sexual orientation: Straight/Heterosexual Gender identity: Female Cognitive needs: No Hearing needs: No Vision needs: Yes (Glasses) Female Reproductive History Menstrual Age of Menarche: 15 Review of Systems Const Denies chills, Denies fatigue, Denies fever(s), Denies weight gain and Denies weight loss ENT Denies dizziness Card Denies chest pain, Denies leg edema, Denies lightheadedness, Denies palpitations, Denies dyspnea on exertion, Denies orthopnea and Denies other Resp Denies cough and Denies dyspnea on exertion GI Denies hematochezia and Denies change in stool character Musc Denies abnormal gait, Denies muscle weakness, Denies numbness, Denies radiating pain into limb and Denies tingling Neuro Denies abnormal gait, Denies dizziness, Denies numbness and Denies tingling Endo Denies fatigue and Denies palpitations Physical Exam Vital Signs: Last Vital Signs Pulse 92 08/06/24 13:42 BP 134/86 08/06/24 13:42 BMI result Body Mass Index 32.7 Const General: comfortable and no acute distress Orientation/consciousness: patient oriented x3 HEENT Other: Unremarkable Head: Yes normal to inspection Neck Neck: Yes normal visual inspection Chest Chest palpation & inspection: normal inspection of the chest Resp Auscultation: clear to auscultation bilaterally Cardio Palpation: normal PMI Heart sounds: S1 normal heart sound present, S2 normal heart sound present, no gallops, no murmurs and no rubs GI Palpation (GI): Soft to palpation Back/Spine/Pelvis Other: unremarkable Skin General skin exam: no rashes or lesions noted Neuro General: patient oriented x3 Extrem General: Yes normal to inspection Psych Mental Status: mental status grossly normal Assessment & Plan Assessment & Plan (1) Elevated blood pressure reading without diagnosis of hypertension: Code(s): R03.0 - Elevated blood-pressure reading, without diagnosis of hypertension Category: Medical Plan Per patient, elevated readings but much lower in today's office check. Going back a few years, she has had intermittent elevations. She states she stopped the phentermine about 2 days ago. That might help. Suggest that she follows her home blood pressure for the next few days and if persistently high, to contact us. In that case, may consider blood pressure medications. Previous cardiac testing- Baseline EKG with underlying sinus rhythm with nonspecific ST-T changes. Underwent ETT and that does not show any clear-cut ischemic findings. She also had an exercise stress echocardiogram-EKG portion thought to be abnormal, but t he echocardiographic component does not show any abnormal findings. In the transthoracic echocardiogram, LVEF 63%. No significant valvular findings. Coding Level of Care Code Est Pt Level 3 (80560) Diagnoses Elevated blood pressure reading without diagnosis of hypertension R03.0
== END 2024-08-06 14:05 | disposition home or self-care (01) ==
PROVIDERS: PCP Internal Medicine; Visit Provider Internal Medicine
DX: R03.0 Elevated blood-pressure reading, without diagnosis of hypertension (principal)
CPT/HCPCS: 99213

== ENCOUNTER → 2024-08-06 13:40 | Outpatient (BNVA) | payer OTHER, SELFPAY | PROVIDERS: PCP Internal Medicine; Visit Provider Internal Medicine ==

== ENCOUNTER → 2024-08-12 09:41 | Outpatient (BNVA) | payer OTHER, SELFPAY | PROVIDERS: PCP Internal Medicine; Visit Provider Internal Medicine ==

== ENCOUNTER 2024-11-02 15:34 | Outpatient (AMB) | payer OTHER, SELFPAY ==
--- NOTE | 2024-11-02 15:35 | ...WebTmpl.AM.BPCHK ---
Intake Intake Visit Reasons: Blood pressure check Allergies doxycycline Allergy (Intermediate, Verified 09/21/24 07:56) hives Coding
[2024-11-02 15:36] VITALS: BP 120/82; PULSE 92; O2SAT 98; BMI 32.8
--- NOTE | 2024-11-02 15:36 | A.OFFPC_ITS ---
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: No Was dental information given to patient?: Patient has dentist HPI Blood pressure check HPI Details Patient comes in today for follow up of her blood pressure States that she was started on Amlodipine [address] Dunlap a couple of months ago on 08/26/2024 for high BP and that she has been doing well on the medication and tolerating it so far without any issues States that she will need to have her Rx refilled if she is to continue on the medication She denies any headaches or dizziness Denies any chest pains, no SOB No nausea/vomiting, no abdominal pain Relates (+) constipation at times lately - states that she has been taking Miralax when needed with (+) relief of her constipation [facility] Medical History (Updated 11/09/24 @ 01:16 by Agustín Miramontes MD) Vitamin D deficiency Essential hypertension PONV (postoperative nausea and vomiting) Lumbar degenerative disc disease Obesity (BMI 30-39.9) Multinodular goiter Surgical History History of back surgery Hx of colonoscopy History of lobectomy of thyroid (~07/19/20) History of tubal ligation History of endometrial ablation Family History Father No problems noted. Mother Heart disease Social History Household Members: Spouse Housing: House Are you a primary eye care professional to a significant other at home: No Do you presently have visiting nurse or other home services: No Alcohol intake: current Alcohol intake frequency: 0-2 drinks per day Comment: all counts correct Patient Tobacco Use Status: Current someday Tobacco user Tobacco use type: Cigarette Cigarette Packs Per Day: 1 e-Cigarette/Vaping Use: Never Used Second Hand Smoke Exposure: Yes service: No Current occupational status: employed Sexual orientation: Straight/Heterosexual Gender identity: Female Cognitive needs: No Hearing needs: No Vision needs: Yes (Glasses) Female Reproductive History Menstrual Age of Menarche: 15 Questionnaire PHQ-9 Over the last 2 weeks, how often have you been bothered by any of the following problems? 1. Little interest or pleasure in doing things: not at all 2. Feeling down, depressed, or hopeless: not at all 3. Trouble falling or staying asleep, or sleeping too much: not at all 4. Feeling tired or having little energy: not at all 5. Poor appetite or overeating: not at all 6. Feeling bad about yourself - or that you are a failure or have let yourself or your family down: not at all 7. Trouble concentrating on things, such as reading the newspaper or watching television: not at all 8. Moving or speaking so slowly that other people could have noticed. Or the opposite - being so fidgety or restless that you have been moving around a lot more than usual: not at all 9. Thoughts that you would be better off or of hurting yourself in some way: not at all Total score: 0 Depression Screening Interpretation: Negative Depression Screening Done: Yes 98606 - PHQ-9 Billing: Yes Source: Developed by Drs. Devaughn Lauren, Mallory Garcia, Timothy Alegre and colleagues, with an educational shara from [employer]. Thrive Questionnaire Date Thrive assessed: 11/02/24 I am a: Patient What is your living situation today?: I have a steady place to live Within the past 12 months, did the food you bought not last and you didn't have the money to get more?: Never true Within the past 12 months, did you worry whether your food would run out before you got money to buy more?: Never true Do you have trouble paying for medicines?: No Do you have trouble getting transportation to medical appointments?: No Do you have trouble paying your heating and electricity bill?: No Do you have trouble taking care of your child, family member or friend?: No Do you have trouble with day-to-day activities such as bathing, preparing meals, shopping, managing finances, etc.?: No Are you currently unemployed and looking for a job?: No Are you interested in more education?: No Please select the resources that you would like help with: None Currently or been in a relationship where the following occur: No concerns reported THRIVE Score: 0 AUDIT C Alcohol Use Questionnaire (AUDIT-C) 2. How many drinks containing alcohol do you have on a typical day when you are drinking?: 1 or 2 3. How often do you have six or more drinks on one occasion?: Weekly Total Score: 3 Score Reviewed/Action Taken: Yes MYRA-7 AMB Questionnaire MYRA-7 Date MYRA - 7 assessed: 11/02/24 Feeling nervous, anxious, or on edge: 0 = Not at all Not being able to stop or control worryin = Not at all Worrying too much about different things: 0 = Not at all Trouble relaxin = Not at all Being so restless that it is hard to sit still: 0 = Not at all Becoming easily annoyed or irritable: 0 = Not at all Feeling afraid as if something awful might happen: 0 = Not at all Total MYRA-7 score (0-4 normal; 5-9 mild; 10-14 moderate; 15-21 severe): 0 Source: Developed by Drs. Devaughn Lauren, Mallory Garcia, Timothy Alegre and colleagues, with an educational shara from [employer]. Review of Systems Const Denies chills, Denies fatigue, Denies fever(s) and Denies headache(s) ENT Denies dysphagia, Denies dizziness, Denies otalgia, Denies headache(s), Denies neck pain, Denies odynophagia and Denies sore throat Card Denies chest pain, Denies palpitations and Denies dyspnea Resp Denies chest congestion, Denies cough and Denies dyspnea GI Denies abdominal pain, Reports constipation (at times), Denies dysphagia, Denies heartburn, Denies diarrhea, Denies nausea, Denies odynophagia and Denies vomiting Denies difficulty voiding, Denies nocturia, Denies dysuria and Denies urinary urgency Musc Reports back pain (improved with back surgery in 09/2023) and Denies neck pain Skin/Breast Denies rash Neuro Denies dizziness and Denies headache(s) Psych Denies anxiety Endo Denies fatigue and Denies palpitations Physical exam (Primary Care) Vital Signs: Last Vital Signs Pulse 92 11/02/24 15:36 BP 120/82 11/02/24 15:36 Pulse Ox 98 11/02/24 15:36 Oxygen Delivery Method Room Air 11/02/24 15:36 BMI result Body Mass Index 32.8 Tobacco/Smoking Status: Tobacco use Status Tobacco use date assessed 11/02/24 11/02/24 15:45 Patient Tobacco Use Status Current someday Tobacco 11/02/24 15:45 Tobacco use type Cigarette 11/02/24 15:45 e-Cigarette/Vaping Use Never Used 11/02/24 15:45 PHQ-9: PHQ-9 Score PHQ-9: Total score 0 11/02/24 16:09 Depression Screening Interpretation: Negative Thrive Assessment: Date of Thrive Assessment Date Thrive assessed 11/02/24 11/02/24 15:45 Currently or been in a relationship where the following occur: No concerns reported Const General: no acute distress and alert HENMT Ears: TM's normal bilaterally and EAC's normal Throat: Yes posterior oropharynx normal and Yes tonsils normal (no TP congestion) Neck Neck: Yes supple and No lymphadenopathy Thyroid: Thyroid normal Resp Auscultation: clear to auscultation bilaterally, no rales and no wheezes Cardio Rate: regular rate Rhythm: regular rhythm Heart sounds: no murmurs GI Palpation (GI): Soft to palpation and nontender Auscultation: normal bowel sounds General: Yes no CVA tenderness Back/Spine/Pelvis Back: no CVA tenderness Thoracic/Lumbar Spine: lumbar spinal tenderness (mild) Skin Rashes: no rashes Extrem General: Yes no clubbing, cyanosis or edema Coding Level of Care Code Est Pt Level 4 (21769) Diagnoses Essential hypertension I10 Multinodular goiter E04.2 Degeneration of intervertebral disc of lumbar region with discogenic back pain and lower extremity pain M51.362 Disc-related pain type: discogenic back pain and lower extremity pain Impaired fasting glucose R73.01 Vitamin D deficiency E55.9 Obesity (BMI 30-39.9) E66.9 Additional Codes PHQ-9 - 92785 - PHQ-9 Billing: Yes ([id number]) Assessment & Plan Assessment & Plan (1) Essential hypertension: Code(s): I10 - Essential (primary) hypertension Category: Medical Plan: Reinforced low sodium diet - goal is systolic BP of 120 mm or less Continue Amlodipine 5 mg QD - Rx refilled Patient is reminded to continue monitoring her blood pressure regularly (2) Multinodular goiter: Comment: S/P right thyroid lobectomy by Dr. Clinton in July 2020 due to compressive symptoms Code(s): E04.2 - Nontoxic multinodular goiter Category: Medical Plan: Repeat thyroid US done in October 2021 revealed unremarkable appearance of the thyroidectomy bed. There is a TR 4 nodule at the left midpole which measures up to 9 mm in maximum dimension. Follow-up ultrasound recommended in one year Follow-up ultrasound in February 2023 revealed (+) left thyroid lobe nodules that do not meet ACR criteria for follow-up Will recheck her TFTs in a few months (3) Lumbar degenerative disc disease: Code(s): M51.36 - Other intervertebral disc degeneration, lumbar region Category: Medical Qualifiers: Disc-related pain type: discogenic back pain and lower extremity pain Qualified Code(s): M51.362 - Other intervertebral disc degeneration, lumbar region with discogenic back pain and lower extremity pain Plan: Patient underwent transforaminal lumbar interbody fusion L5-S1 on 09/25/[address] Bates, with (+) significant relief of her lower back symptoms since Reinforced activity and weight-lifting restrictions (4) Impaired fasting glucose: Code(s): R73.01 - Impaired fasting glucose Category: Medical Plan: Her HgbA1c was at 5.4% when last checked in February 2023 Reinforced low calorie/low carb diet (5) Vitamin D deficiency: Code(s): E55.9 - Vitamin D deficiency, unspecified Category: Medical Plan: Continue Vitamin D3 2000 units QD Will recheck her Vitamin D level in a few months for follow up (6) Obesity (BMI 30-39.9): Code(s): E66.9 - Obesity, unspecified Category: Medical Plan: Reinforced diet/exercise as tolerated/lose weight Continue Phentermine 15 mg QD States that she was previously advised to discontinue Phentermine due to concerns about its effect on her blood pressure but after a four-week break from Phentermine, her blood pressure remained mostly unchanged so she eventually started back on it once her blood pressure got better controlled Plan To return as scheduled in February 2025 for her annual physical examination Orders: Orders Comprehensive [place]. Panel Fast 02/06/25 E78.00 - Pure hypercholesterolemia, unspecified, Z00.00 - Encounter for general adult medical examination without abnormal findings Hemoglobin A1c 02/06/25 R73.01 - Impaired fasting glucose Complete Blood Count Auto Diff 02/06/25 D64.9 - Anemia, unspecified, Z00.00 - Encounter for general adult medical examination without abnormal findings Lipid Panel 02/06/25 E78.00 - Pure hypercholesterolemia, unspecified, Z00.00 - Encounter for general adult medical examination without abnormal findings TSH reflex Free T4 02/06/25 E78.00 - Pure hypercholesterolemia, unspecified, Z00.00 - Encounter for general adult medical examination without abnormal findings UA CC w/rflx Micro + Cult 02/06/25 R30.0 - Dysuria, Z00.00 - Encounter for general adult medical examination without abnormal findings Vitamin D 25-OH Total 02/06/25 E55.9 - Vitamin D deficiency, unspecified, Z00.00 - Encounter for general adult medical examination without abnormal findings Medications: Changed From amlodipine 5 mg PO DAILY 30 tabs 3RF To amlodipine 5 mg PO DAILY 90 days 90 tabs 1RF
== END 2024-11-02 16:42 | disposition home or self-care (01) ==
PROVIDERS: PCP Internal Medicine; Visit Provider Internal Medicine
DX: I10 Essential (primary) hypertension (principal); E66.9 Obesity, unspecified; Z68.32 Body mass index [BMI] 32.0-32.9, adult; E04.2 Nontoxic multinodular goiter; M51.362 Other intervertebral disc degeneration, lumbar region with discogenic back pain and lower extremity pain; R73.01 Impaired fasting glucose; E55.9 Vitamin D deficiency, unspecified

== ENCOUNTER → 2024-11-02 15:34 | Outpatient (BNVA) | payer OTHER, SELFPAY | PROVIDERS: PCP Internal Medicine; Visit Provider Internal Medicine | DX: I10 Essential (primary) hypertension (principal); E04.2 Nontoxic multinodular goiter; M51.362 Other intervertebral disc degeneration, lumbar region with discogenic back pain and lower extremity pain; R73.01 Impaired fasting glucose; E55.9 Vitamin D deficiency, unspecified; E66.9 Obesity, unspecified; Z68.32 Body mass index [BMI] 32.0-32.9, adult; Z79.899 Other long term (current) drug therapy | CPT/HCPCS: 96127 ==

== ENCOUNTER 2024-12-17 08:14 | Outpatient (REF) | payer OTHER, SELFPAY ==
--- OUTSIDE RECORDS SUMMARY | 2024-12-17 08:22 | XMS_ITS | Clinical Summary ---
Author Organization [address] [place] [address] [place] [phone] Phone Care Team Providers Care Seamless Hosiery Knitter Name Role Phone Agustín Miramontes MD Primary Care Provider Allergies Active Allergy Reactions Criticality Noted Date Comments Doxycycline Hives 07/28/2024 Medications topiramate (TOPAMAX) 100 mg tablet Take 1 tablet (100 mg total) by mouth 1 (one) time each day. 05/12/2024 Active amLODIPine (NORVASC) 5 mg tablet Take 1 tablet (5 mg total) by mouth 1 (one) time each day. 10/19/2024 Active semaglutide (Wegovy) 0.25 mg/0.5 mL injection penIndications:C lass 1 obesity due to excess calories with serious comorbidity and body mass index (BMI) of 33.0 to 33.9 in adult Inject 0.25 mg under the skin every 7 (seven) days. 4 mL 1 11/05/2024 Active Active Problems Problem Noted Date Diagnosed Date Lumbar disc disease 07/28/2024 Multinodular goiter 07/28/2024 Obesity (BMI 30-39.9) 07/28/2024 Encounters Date Type Department Care Team Description 11/05/2024 8:15 AM EST Office Visit Bariatric Surgery [address] [phone] Malik Sotelo MD Class 1 obesity due to excess calories with serious comorbidity and body mass index (BMI) of 33.0 to 33.9 in adult (Primary Dx) from Last 3 Months Surgical History Surgery Date Site/Laterality Comments ENDOMETRIAL ABLATION THYROID LOBECTOMY 07/19/2020 TUBAL LIGATION Social History Tobacco Use Types Packs/Day Years Used Date Smoking Tobacco: Never Assessed Comments Unknown Sex and Gender Information Value Date Recorded Sex Assigned at Not on file Legal Sex Female 12:22 AM EST Gender Identity Not on file Sexual Orientation Not on file Obstetrics History Last Filed Vital Signs Vital Sign Reading Time Taken Comments Blood Pressure 139/92 11/05/2024 8:31 AM EST Pulse 79 11/05/2024 8:31 AM EST Temperature 36.2 ??C (97.2 ??F) 11/05/2024 8:31 AM ES T Respiratory Rate - - Oxygen Saturation - - Inhaled Oxygen Concentration - - Weight 84.8 kg (187 lb) 11/05/2024 8:31 AM EST Height 160 cm (5' 3 ) 11/05/2024 8:31 AM EST Body Mass Index 33.13 11/05/2024 8:31 AM EST Plan of Treatment Upcoming Encounters Date Type Department Care Team (Late st Contact Info) Description 02/04/2025 8:00 AM EDT Office Visit Bariatric Surgery - [place] [address] [phone] Malik Sotelo MD [address] [address] Health Maintenance Due Date Last Done Comments Breast Cancer Screening 1972 DTaP,Tdap,and Td Vaccines (1 - Tdap) 1991 Hepatitis B Vaccines (1 of 3 - 19+ 3-dose series) 1991 11/14/2016, 06/06/2016, 05/08/2016 Cervical Cancer Screening: Pap Smear 1993 Zoster Vaccines (1 of 2) 2022 COVID-19 Vaccine ( season) 2024 09/19/2023, 11/10/2020, 10/20/2020 Influenza Vaccine (#1) 2024 , 08/16/2022, 08/08/2021, Additional history exists Cholesterol Screening (Lipid Panel) 07/29/2024 Colorectal Cancer Screening: Colonoscopy 07/29/2024 Depression Screening 07/29/2024 HIV Screening 07/29/2024 Hepatitis C Screening 07/29/2024 Social Influencers of Health Screening 07/29/2024 HIB Vaccines Aged Out No longer eligi ble based on patient's age to complete this topic HPV Vaccines Aged Out No longer eligi ble based on patient's age to complete this topic Hepatitis A Vaccines Aged Out No long er eligible based on patient's age to complete this topic IPV Vaccines Aged Out No longer eligi ble based on patient's age to complete this topic MMR Vaccines Aged Out No longer eligi ble based on patient's age to complete this topic Meningococcal ACWY Vaccine Aged Out N o longer eligible based on patient's age to complete this topic Pneumococcal Vaccine: Pediatrics (0 to 5 Years) and At-Risk Patients (6 to 64 Years) Aged Out No longer eligible based on patient's age to complete this topic RSV Immunization Patients Under 20 months Aged Out No longer eligible based on patient's age to complete this topic Varicella Vaccines Aged Out No longer eligible based on patient's age to complete this topic [place] [address] Care Teams Seamless Hosiery Knitter Relationship Specialty Start Date End Date Agustín Miramontes MD [address] [place] [address] [address] [place], [place] PCP - General Internal Medicine 09/18/18
[2024-12-17 08:30] LABS: MANUAL DIFF FLAG NO
[2024-12-17 08:56] LABS: Basophils Absolute Auto 0.1 X10*3/uL (0.0-0.2); Basophils Percent Auto 1.2 % (0-2); Eosinophils Absolute Auto 0.4 X10*3/uL (0.0-0.4); Eosinophils Percent Auto 8.6 % (0-4); Hematocrit 42.4 % (37.0-47.0); Hemoglobin 14.4 g/dl (12.0-16.0); Lymphocytes Absolute Auto 1.9 X10*3/uL (1.2-4.9); Lymphocytes Percent Auto 45.6 % (20-40); Mean Corpuscular Hemoglobin 31.4 pg (27.0-33.0); Mean Corpuscular Volume 92.4 fL (80.0-98.0); Mean Platelet Volume 10.3 fL (9.4-12.3); Monocytes Absolute Auto 0.4 X10*3/uL (0.1-1.2); Monocytes Percent Auto 10.1 % (2-11); Neutrophils Absolute Auto 1.4 x10*3/uL (2.0-8.3); Neutrophils Percent Auto 34.5 % (45-73); Platelet Count 325 X10*3/uL (160-400); Red Blood Count 4.59 X10*6/uL (4.20-5.50); Red Cell Distribution Width 13.5 % (11.0-16.0); White Blood Count 4.1 X10*3/uL (4.8-10.8)
[2024-12-17 08:56] LABS: Appearance Urine Clear; Color Urine Yellow; Glucose Urine UA Negative (Negative); Leukocyte Esterase Urine Negative (Negative); Nitrite Urine Negative (Negative); PH 5.5 (5.0-9.0); Specific Gravity - Urine 1.025 (1.005-1.025); Urine Blood Negative (Negative); Urine Ketones Negative (Negative); Urine Protein Negative (Neg-Trace)
[2024-12-17 09:03] LABS: Estimated Average Glucose 120 mg/dL; Hemoglobin A1C 146.8974 umol/L; Hemoglobin A1c % 5.8 % (<6.0); Total Hemoglobin (HGBA1C) 3711.0708 umol/L
[2024-12-17 09:50] LABS: Alanine Aminotransferase 25 U/L (0-31); Alkaline Phosphatase 98 U/L (39-117); Anion Gap 12 (12-20); Aspartate Amino Transferase 22 U/L (5-31); Bilirubin Total 0.4 mg/dL (0.0-1.0); Blood Urea Nitrogen 17 mg/dL (9-16); Calcium 8.8 mg/dL (8.4-10.2); Carbon Dioxide 23 mmol/L (22-29); Chloride 111 mmol/L (96-108); Cholesterol 153 mg/dL (<200); Estimated Glomerular Filt Rate > 60; Glucose Fasting 77 mg/dL (60-99); HDL Cholesterol 58 mg/dL (>40); LDL Cholesterol Calculated 68 mg/dL (<100); Potassium 4.4 mmol/L (3.3-5.1); Sodium 142 mmol/L (135-145); Total Protein 7.5 g/dL (6.5-8.0); Triglycerides 138 mg/dL (<150)
[2024-12-17 10:01] LABS: TSH reflex Free T4 0.75 uIU/mL (0.32-4.0); Vitamin D 25-OH Total 42.1 ng/mL (>30)
== END 2024-12-17 08:15 | disposition home or self-care (01) ==
LOC: HO.LAB 08:14
PROVIDERS: PCP Internal Medicine; Visit Provider Internal Medicine
DX: Z00.00 Encounter for general adult medical examination without abnormal findings (principal); E78.00 Pure hypercholesterolemia, unspecified; R73.01 Impaired fasting glucose; D64.9 Anemia, unspecified; R30.0 Dysuria; E55.9 Vitamin D deficiency, unspecified
CPT/HCPCS: 36415; 80053; 80061; 81003; 82306; 83036; 84443; 85025

== ENCOUNTER 2025-01-05 11:27 | Outpatient (REF) | payer OTHER, SELFPAY ==
--- NOTE | ~2025-01-05 | US_ITS ---
EXAMINATION: US PELVIS CLINICAL INFORMATION: Leiomyomata of uterus COMPARISON: December 24, 2023 demonstrated at least 7 uterine fibroids. TECHNIQUE: Ultrasound of the pelvis is performed using both transabdominal and transvaginal transducers along with Doppler. Transvaginal imaging is performed due to inadequate visualization transabdominally. FINDINGS: Uterus: The uterus is anteverted and measures 16 x 9 x 11 cm. There are multiple, rounded heterogeneous likely partially calcified soft tissue lesions throughout the myometrium and questionable subserosal of the uterus. These lesions range from 2.3 cm to 6.3 cm in maximum dimensions. The double wall endometrial thickness is unable to elevate.. Multiple uterine fibroids as follow: 1. 5.6 x 3.5 x 4.6 cm. 2. 6.3 x 4.8 x 5.9 cm. 3. 2.3 x 2.1 x 2.5 cm. 4. 4.7 x 3.4 x 2.9 cm. 5. 2.5 x 1.9 x 2.7 cm. 6. 3.2 x 2.1 x 3 cm. Adnexa: Both ovaries are visualized. There is normal color flow to the adnexa. There is no ovarian torsion. There is no pelvic ascites or fluid collection. Right ovary measures 3 x 2 x 2 cm. Volume: 5 cc. No solid or cystic lesions. Left ovary measures 4 x 2 x 2 cm. Volume: 7 cc. No solid or cystic lesions. US/US pelvic complete IMPRESSION: Leiomyomata uteri, the largest measures 6.3 cm. Consider further imaging evaluation with IV contrast enhanced MRI pelvis. Electronically signed by: Pratik Blank MD 01/06/2025 09:13 AM ARANZA
--- OUTSIDE RECORDS SUMMARY | 2025-01-05 14:28 | XMS_ITS | Clinical Summary ---
Author Organization [address] [place] [address] [place] [phone] Phone Care Team Providers Care Business Analyst Name Role Phone Agustín Miramontes MD Primary [...] 8:15 AM EST Office Visit Bariatric Surgery [address] [phone] Malik Sotelo MD Class 1 [...] AM EDT Office Visit Bariatric Surgery - [place] [address] [phone] Malik Sotelo MD [address] [address] Health Maintenance Due Date Last Done Comments Breast Cancer Screening 1972 DTaP,Tdap,and Td Vaccines (1 - Tdap) 1991 Hepatitis B Vaccines (1 of 3 - 19+ 3-dose series) 1991 11/14/2016, 06/06/2016, 05/08/2016 Cervical Cancer Screening: Pap Smear 1993 Pneumococcal Vaccine: 50+ Years (1 of 1 - PCV) 2022 Zoster Vaccines (1 of 2) 2022 COVID-19 Vaccine (4 - season) 2024 09/19/2023, 11/10/2020, 10/20/2020 Influenza Vaccine [...] patient's age to complete this topic Meningococcal B Vacine Aged Out No lo nger eligible based on patient's age to complete [...] patient's age to complete this topic Insurance [facility] Care Teams Business Analyst Relationship Specialty Start Date End Date Agustín Miramontes MD [address] [place] [address] [address] [place], [place] PCP - General Internal Medicine 09/18/18
== END 2025-01-05 11:28 | disposition home or self-care (01) ==
LOC: HO.US 11:27
PROVIDERS: PCP Internal Medicine; Visit Provider Obstetrics & Gynecology
DX: D25.9 Leiomyoma of uterus, unspecified (principal)
CPT/HCPCS: 76856

== ENCOUNTER 2025-01-20 09:53 | Outpatient (AMB) | payer OTHER, SELFPAY ==
[2025-01-20 10:01] VITALS: BP 114/78; PULSE 108; TEMP 37.2; O2SAT 99; BMI 33.7
--- NOTE | 2025-01-20 10:01 | MHC.PC.OV ---
Vital Signs 01/20/25 10:01 Height 5 ft 3 in Weight 190 lb BMI 33.7 BP 114/78 Blood Pressure Location Lt brachial Position Sitting Pulse 108 H Pulse Source Pulse Oximeter Temp 98.9 F Temp Source Oral Pulse Oximetry (%) 99 Oxygen Delivery Method Room Air Intake Visit Reasons: RT leg swollen (blood clot concerned) Hybrid Technologist Required: No Accompanied by: Self / Same As Patient Allergies doxycycline Allergy (Intermediate, Verified 01/21/25 19:57) hives Medication List - Last Reconciled 01/20/25 by SLIME Andres amlodipine 5 mg PO DAILY cholecalciferol (vitamin D3) 50 mcg PO DAILY 90 days gabapentin 100 mg PO TID topiramate 100 mg PO DAILY Tobacco use date assessed: 01/20/25 Dental Screening Dental Screen Date: 01/20/25 Did you have a dental visit in the last 12 months?: Yes Did you have a dental problem in the last 6 months where you did not have access to dental care?: No Was dental information given to patient?: Patient has dentist HPI RT leg swollen (blood clot concerned) HPI Details Reports that she noticed that her right leg was swollen yesterday Reports that it started with her right knee hurting so she started paying more attention to the leg Reports that she noticed that she was having pain in the right lower leg as well Right lower leg is more swollen than left Right leg with +2 pitting edema, left lower leg with trace edema Denies sob, chest pain, heart palpitation The patient has been on amlodipine since August-discussed with the patient about the possibility of the edema being a side effect of the amlodipine The patient reports that she has been taking this medication for a while and has not had any issues with it Discussed about possible wearing compression stockings if there is no clots in her leg The patient was sent for a venous ultrasound for leg PFSH Medical History (Updated 01/20/25 @ 10:33 by SLIME Andres) Vitamin D deficiency Essential hypertension PONV (postoperative nausea and vomiting) Lumbar degenerative disc disease Obesity (BMI 30-39.9) Multinodular goiter Surgical History History of back surgery Hx of colonoscopy History of lobectomy of thyroid (~07/19/20) History of tubal ligation History of endometrial ablation Family History Father No problems noted. Mother Heart disease Social History Household Members: Spouse Housing: House Are you a primary senior care assistant to a significant other at home: No Do you presently have visiting nurse or other home services: No Alcohol intake: current Alcohol intake frequency: 0-2 drinks per day Comment: all counts correct Patient Tobacco Use Status: Current someday Tobacco user Tobacco use type: Cigarette Cigarette Packs Per Day: 1 e-Cigarette/Vaping Use: Never Used Second Hand Smoke Exposure: Yes service: No Current occupational status: employed Sexual orientation: Straight/Heterosexual Gender identity: Female Cognitive needs: No Hearing needs: No Vision needs: Yes (Glasses) Female Reproductive History Menstrual Age of Menarche: 15 Questionnaire PHQ-9 Over the last 2 weeks, how often have you been bothered by any of the following problems? 1. Little interest or pleasure in doing things: not at all 2. Feeling down, depressed, or hopeless: not at all 3. Trouble falling or staying asleep, or sleeping too much: not at all 4. Feeling tired or having little energy: not at all 5. Poor appetite or overeating: not at all 6. Feeling bad about yourself - or that you are a failure or have let yourself or your family down: not at all 7. Trouble concentrating on things, such as reading the newspaper or watching television: not at all 8. Moving or speaking so slowly that other people could have noticed. Or the opposite - being so fidgety or restless that you have been moving around a lot more than usual: not at all 9. Thoughts that you would be better off or of hurting yourself in some way: not at all Total score: 0 Depression Screening Interpretation: Negative Depression Screening Done: Yes 37445 - PHQ-9 Billing: Yes Source: Developed by Drs. Devaughn Lauren, Mallory Garcia, Timothy Alegre and colleagues, with an educational shara from [employer]. Thrive Questionnaire Date Thrive assessed: 01/20/25 I am a: Patient What is your living situation today?: I have a steady place to live Within the past 12 months, did the food you bought not last and you didn't have the money to get more?: Never true Within the past 12 months, did you worry whether your food would run out before you got money to buy more?: Never true Do you have trouble paying for medicines?: No Do you have trouble getting transportation to medical appointments?: No Do you have trouble paying your heating and electricity bill?: No Do you have trouble taking care of your child, family member or friend?: No Do you have trouble with day-to-day activities such as bathing, preparing meals, shopping, managing finances, etc.?: No Are you currently unemployed and looking for a job?: No Are you interested in more education?: No Please select the resources that you would like help with: None Currently or been in a relationship where the following occur: No concerns reported THRIVE Score: 0 AUDIT C Alcohol Use Questionnaire (AUDIT-C) 2. How many drinks containing alcohol do you have on a typical day when you are drinking?: 1 or 2 3. How often do you have six or more drinks on one occasion?: Weekly Total Score: 3 Score Reviewed/Action Taken: Yes MYRA-7 AMB Questionnaire MYRA-7 Date MYRA - 7 assessed: 01/20/25 Feeling nervous, anxious, or on edge: 0 = Not at all Not being able to stop or control worryin = Not at all Worrying too much about different things: 0 = Not at all Trouble relaxin = Not at all Being so restless that it is hard to sit still: 0 = Not at all Becoming easily annoyed or irritable: 0 = Not at all Feeling afraid as if something awful might happen: 0 = Not at all Total MYRA-7 score (0-4 normal; 5-9 mild; 10-14 moderate; 15-21 severe): 0 Source: Developed by Drs. Devaughn Lauren, Mallory Garcia, Timothy Alegre and colleagues, with an educational shara from [employer]. MYRA-7 Assessment Billing MYRA-7 Assessment Tool: MYRA-7 Assessment 83198 Review of Systems ENT Denies sore throat Card Denies chest pain, Denies leg edema and Denies lightheadedness Resp Denies cough and Denies hemoptysis Musc Reports arthralgias (Right knee ), Reports joint swelling (Right lower leg) and Reports muscle cramps (Right lower leg) Physical exam (Primary Care) Vital Signs: Last Vital Signs Temp 98.9 F 01/20/25 10:01 Pulse 108 H 01/20/25 10:01 BP 114/78 01/20/25 10:01 Pulse Ox 99 01/20/25 10:01 Oxygen Delivery Method Room Air 01/20/25 10:01 BMI result Body Mass Index 33.7 Tobacco/Smoking Status: Tobacco use Status Tobacco use date assessed 01/20/25 01/20/25 10:05 Patient Tobacco Use Status Current someday Tobacco 01/20/25 10:05 Tobacco use type Cigarette 01/20/25 10:05 e-Cigarette/Vaping Use Never Used 01/20/25 10:05 PHQ-9: PHQ-9 Score PHQ-9: Total score 0 01/21/25 13:38 Depression Screening Interpretation: Negative Thrive Assessment: Date of Thrive Assessment Date Thrive assessed 01/20/25 01/20/25 10:05 Currently or been in a relationship where the following occur: No concerns reported Const General: healthy appearing, no acute distress, alert and awake Nutritional Appearance: well nourished Orientation/consciousness: oriented to person, oriented to place and oriented to time HENMT Ears: TM's normal bilaterally General nose exam: Normal nasal mucous membranes and turbinates present Eyes Conjunctivae: conjunctivae normal Sclerae: sclerae normal Pupils: Equal, round and reactive pupils present Neck Neck: Yes no lymphadenopathy and Yes no JVD Thyroid: Thyroid normal Carotids: no bruits Resp Effort & Inspection: normal respiratory effort and not tachypneic Auscultation: no crackles, no rales, no rhonchi and no wheezes Cardio Rate: regular rate Rhythm: regular rhythm Heart sounds: no murmurs and normal S1 and S2 Skin General skin exam: no rashes or lesions noted and dry skin Neuro General: oriented to person, oriented to place and oriented to time Cranial nerves: Yes Equal, round and reactive pupils present Gait exam (Neuro): Normal gait present Motor exam (neuro): no tremor noted Extrem Right upper extremity: full ROM Left upper extremity: full ROM Right lower extremity: full ROM, normal capillary refill, edema Details: pitting and 2+ and knee Details: normal ROM; no tenderness, no swelling and no unusual warmth Left lower extremity: full ROM and edema Details: non-pitting and 1+ Psych Mental Status: mental status grossly normal Speech and movement: Normal speech and movement present Affect: normal affect Attitude: cooperative Thought process: Normal thought process present Coding Level of Care Code Est Pt Level 3 (89019) Diagnoses Right leg pain M79.604 Leg edema, right R60.0 Essential hypertension I10 Additional Codes MYRA-7 Assessment Billing - MYRA-7 Assessment Tool: MYRA-7 Assessment 89841 ([id number]) PHQ-9 - 23294 - PHQ-9 Billing: Yes ([id number]) Time Spent (min) 34 Assessment & Plan Assessment & Plan (1) Right leg pain: Code(s): M79.604 - Pain in right leg Category: Medical Plan: Venous ultrasound ordered to rule out DVT. Discussed with the patient that if the leg is negative for DVT, she should wear compression stockings to increase her circulation in her legs. Discussed with the patient that the swelling could be a side effect of her Norvasc. Patient reports that she has been taking this medication for a while without any issues. (2) Leg edema, right: Code(s): R60.0 - Localized edema Category: Medical Plan: Venous ultrasound ordered to rule out DVT. Discussed with the patient that if the leg is negative for DVT, she should wear compression stockings to increase her circulation in her legs. Discussed with the patient that the swelling could be a side effect of her Norvasc. Patient reports that she has been taking this medication for a while without any issues. (3) Essential hypertension: Code(s): I10 - Essential (primary) hypertension Category: Medical Plan: Blood pressure is stable. The patient is on Norvasc 5 mg daily. Complained of swelling and pain in right lower leg. The patient does not think that it is related to the Norvasc because she has been taking this medication for a while without any issues. Venous ultrasound was ordered to rule out DVT. Orders: Orders US venous duplex LE RT 01/20/25 M79.604 - Pain in right leg, R60.0 - Localized edema
--- OUTSIDE RECORDS SUMMARY | 2025-01-20 11:17 | XMS_ITS | Clinical Summary ---
Author Organization 175 [facility] Address 175 [place] [address] Phone Care Team Providers Care Solution Manager Name Role Phone Agustín Miramontes MD Primary [...] Encounters Date Type Department Care Team Description 01/18/2025 Telephone Bariatric Surgery [address] [phone] Malik Sotelo MD Advice Only (Zepbound script) 11/05/2024 8:15 AM EST Office Visit Bariatric Surgery [address] [phone] Malik Sotelo MD Class 1 [...] AM EDT Office Visit Bariatric Surgery - [place] 175 [facility] [address] [place] [address] Malik Sotelo MD 175 [facility] [address] [place] [address] Health Maintenance Due Date Last Done Comments [...] 09/19/2023, 11/10/2020, 10/20/2020 Influenza Vaccine (#1) 2024 3, 08/16/2022, 08/08/2021, Additional history exists Cholesterol Screening [...] patient's age to complete this topic Insurance [employer] [facility] Care Teams Solution Manager Relationship Specialty Start Date End Date Agustín Miramontes MD [address] [place] [address] [address] SHONNA Linares PCP - General Internal Medicine 09/18/18
--- OUTSIDE RECORDS SUMMARY | 2025-01-20 11:17 | XMS_ITS | Encounter Summary ---
Author Organization [facility] Address [address] [place] [address] Care Team Providers Care Motocross Racer Name Role Phone Agustín Miramontes MD Primary Care Provider Reason for Visit * Reason Onset Date Comments Advice Only 01/18/2025 Zepbound script Encounter Details Date Type Department Care Team (Late Contact Info) Description 01/18/2025 Telephone Bariatric Surgery - [place] [address] [phone] Malik Sotelo MD [address] [phone] Advice Only (Zepbound script) Social History Tobacco Use Types Packs/Day Years Used Date Smoking Tobacco: Never Assessed Comments Unknown Sex and Gender Information Value Date Recorded Sex Assigned at Not on file Legal Sex Female 12:22 AM EST Gender Identity Not on file Sexual Orientation Not on file documented as of this encounter Progress Notes * Cassidy Wang - 01/18/2025 2:29 PM EDT Patient was denied Wegovy and is asking if a script can sent for Zepbound along with prior auth. documented in this encounter Plan of Treatment Upcoming Encounters Date Type Department Care Team (Late Contact Info) Description 02/04/2025 8:00 AM EDT Office Visit Bariatric Surgery - [place] [address] [phone] Malik Sotelo MD [address] [address] documented as of this encounter Visit Diagnoses Not on filedocumented in this encounter Care Teams Motocross Racer Relationship Specialty Start Date End Date Agustín Miramontes MD [address] [place] [address] [address] [place] PCP - General Internal Medicine 09/18/18 documented as of this encounter
== END 2025-01-20 10:39 | disposition home or self-care (01) ==
LOC: HO.HMCH 09:54
PROVIDERS: PCP Internal Medicine
DX: M79.604 Pain in right leg (principal); R60.0 Localized edema; I10 Essential (primary) hypertension

== ENCOUNTER → 2025-01-20 09:53 | Outpatient (BNVA) | payer OTHER, SELFPAY | PROVIDERS: PCP Internal Medicine | DX: R60.0 Localized edema (principal); M79.604 Pain in right leg; I10 Essential (primary) hypertension; Z79.899 Other long term (current) drug therapy | CPT/HCPCS: 96127 ==

== ENCOUNTER 2025-01-20 15:55 | Outpatient (REF) | payer OTHER, SELFPAY ==
--- NOTE | ~2025-01-20 | US_ITS ---
EXAMINATION: US LOWER EXTREMITY VEINS LIMITED FOLLOW UP RIGHT HISTORY: M79.604 - Pain in right leg COMPARISON: There are no prior studies for comparison. TECHNIQUE: Duplex and color Doppler sonographic examination of the deep venous system of the right lower extremity was performed. FINDINGS: The common femoral, superficial femoral, and popliteal veins are patent demonstrating normal compressibility, spontaneous flow, and augmentation. There is a normal color and spectral Doppler waveform appearance of the visualized deep venous system above the knee. The posterior tibial and peroneal veins are patent. US/US venous duplex LE RT IMPRESSION: No evidence of acute DVT in the right lower extremity. Electronically signed by: Devaughn Moran MD 01/21/2025 08:01 AM EDT
--- OUTSIDE RECORDS SUMMARY | 2025-01-20 17:43 | XMS_ITS | Clinical Summary ---
Author Organization 175 [facility] Address [address] [place] [phone] Phone Care Team Providers Care Mangle Operator Garments Name Role Phone Agustín Miramontes MD Primary Care Provider Allergies Active Allergy Reactions Criticality Noted Date Comments Doxycycline Hives 07/28/2024 Medications topiramate (TOPAMAX) 100 mg tablet Take 1 tablet (100 mg total) by mouth 1 (one) time each day. 4 05/07/20 25 Active amLODIPine (NORVASC) 5 mg tablet Take 1 tablet (5 mg total) by mouth 1 (one) time each day. 4 Active tirzepatide, weight loss, (Zepbound) 2.5 mg/0.5 mL injectionIndica tions:Class 1 obesity due to excess calories with serious comorbidity and body mass index (BMI) of 33.0 to 33.9 in adult Inject 0.5 mL (2.5 mg total) under the skin every 7 (seven) days for 4 doses. 2 mL 5 02/12/20 25 Active semaglutide (Wegovy) 0.25 mg/0.5 mL injection penIndications: Class 1 obesity due to excess calories with serious comorbidity and body mass index (BMI) of 33.0 to 33.9 in adult Inject 0.25 mg under the skin every 7 (seven) days. 4 mL 1 5 01/21/20 25 Discontinued Active Problems Problem Noted Date Diagnosed Date Lumbar disc disease 07/28/2024 Multinodular goiter 07/28/2024 Obesity (BMI 30-39.9) 07/28/2024 Encounters Date Type Department Care Team Description 01/18/2025 Telephone Bariatric Surgery - [place] [address] [phone] Malik Sotelo MD Advice Only (Zepbound script) 11/05/2024 8:15 AM EST Office Visit Bariatric Surgery - [place] [address] [phone] Malik Sotelo MD Class 1 [...] AM EDT Office Visit Bariatric Surgery - [place] [address] [phone] Malik Sotelo MD [address] [id number] Health Maintenance Due Date Last Done Comments Breast Cancer Screening 1972 DTaP,Tdap,and Td Vaccines (1 - Tdap) 1991 Hepatitis B Vaccines (1 of 3 - 19+ 3-dose series) 1991 11/14/2016, 06/06/2016, 05/08/2016 Cervical Cancer Screening: Pap Smear 1993 Pneumococcal Vaccine: 50+ Years (1 of 1 - PCV) 2022 Zoster Vaccines (1 of 2) 2022 COVID-19 Vaccine (4 - 2023- season) 2024 09/19/2023, 11/10/2020, 10/20/2020 Influenza Vaccine [...] patient's age to complete this topic Insurance [employer] [facility] Care Teams Mangle Operator Garments Relationship Specialty Start Date End Date Agustín Miramontes MD [address] [place] [address] [address] [place] PCP - General Internal Medicine 09/18/18
--- OUTSIDE RECORDS SUMMARY | 2025-01-20 17:43 | XMS_ITS | Encounter Summary ---
Author Organization [facility] Address [address] [place] [address] Care Team Providers Care Tanker Service Attendant Name Role Phone Agustín Miramontes MD Primary Care Provider Reason for Visit * Reason Onset Date Comments Advice Only 01/18/2025 Zepbound script Encounter Details Date Type Department Care Team (Late Contact Info) Description 01/18/2025 Telephone Bariatric Surgery - [place] [address] [phone] Malik Sotelo MD [address] [address] Advice Only (Zepbound script) Social History Tobacco [...] AM EDT Office Visit Bariatric Surgery - [place] [address] [phone] Malik Sotelo MD [address] [address] documented as of this encounter Visit Diagnoses Not on filedocumented in this encounter Care Teams Tanker Service Attendant Relationship Specialty Start Date End Date Agustín Miramontes MD [address] [place] [address] [address] [place] PCP - General Internal Medicine 09/18/18 documented as of this encounter
== END 2025-01-20 15:56 | disposition home or self-care (01) ==
LOC: HO.US 15:55
PROVIDERS: PCP Internal Medicine
DX: M79.604 Pain in right leg (principal); R60.0 Localized edema
CPT/HCPCS: 93971

== ENCOUNTER → 2025-01-20 15:58 | Outpatient (BNV) | payer OTHER, SELFPAY | PROVIDERS: PCP Internal Medicine; Visit Provider Radiology Diagnostic Radiology | DX: M79.604 Pain in right leg (principal) | CPT/HCPCS: 93971 ==

== ENCOUNTER 2025-01-26 07:40 | Outpatient (AMB) | payer OTHER, SELFPAY ==
--- OUTSIDE RECORDS SUMMARY | 2025-01-26 07:41 | XMS_ITS | Clinical Summary ---
Author Organization 175 [facility] Address [address] [place] [phone] Phone Care Team Providers Care Gas Pit Worker Name Role Phone Agustín Miramontes MD Primary [...] Team Description 01/18/2025 Telephone Bariatric Surgery - [place] [address] [phone] Malik Sotelo MD Advice Only (Zepbound script) 11/05/2024 8:15 AM EST Office Visit Bariatric Surgery - [place] [address] [phone] Malik Sotelo MD Class 1 [...] AM EDT Office Visit Bariatric Surgery - [place] [address] [phone] Malik Sotelo MD [address] [phone] Health Maintenance Due Date Last Done Comments [...] patient's age to complete this topic Insurance [facility] Care Teams Gas Pit Worker Relationship Specialty Start Date End Date Agustín Miramontes MD [address] [place] [address] [address] [place] PCP - General Internal Medicine 09/18/18
--- OUTSIDE RECORDS SUMMARY | 2025-01-26 07:41 | XMS_ITS | Encounter Summary ---
Author Organization [facility] Address [address] [place] [address] Care Team Providers Care Computer Systems Engineer Name Role Phone Agustín Miramontes MD Primary Care Provider [phone] Reason for Visit * Reason Onset Date Comments Advice Only 01/18/2025 Zepbound script Encounter Details Date Type Department Care Team (Late Contact Info) Description 01/18/2025 Telephone Bariatric Surgery - [place] [address] [phone] Malik Sotelo MD 175 [facility] [address] [place] [address] Advice Only (Zepbound script) Social History Tobacco Use Types Packs/Day Years Used Date Smoking Tobacco: Never Assessed Comments Unknown Sex and Gender Information Value Date Recorded Sex Assigned at Not on file Legal Sex Female 12:22 AM EST Gender Identity Not on file Sexual Orientation Not on file documented as of this encounter Progress Notes * Cosmo Bonilla [place] - 01/22/2025 3:53 PM EDT Done * Cassidy Wang - 01/18/2025 2:29 PM EDT Patient was denied Wegovy and is asking if a script can sent for Zepbound along with prior auth. documented in this encounter Plan of Treatment Upcoming Encounters Date Type Department Care Team (Late Contact Info) Description 02/04/2025 8:00 AM EDT Office Visit Bariatric Surgery - [place] [address] [facility] [address] [place] [phone] Malik Sotelo MD 175 [facility] [address] [place] [address] documented as of this encounter Visit Diagnoses Not on filedocumented in this encounter Care Teams Computer Systems Engineer Relationship Specialty Start Date End Date Agustín Miramontes MD [address] [place] [address] [address] [place], [place] PCP - General Internal Medicine 09/18/18 documented as of this encounter
--- NOTE | 2025-01-26 07:44 | A.OFFVIS_ITS ---
Vital Signs 01/26/25 07:48 Height 5 ft 3 in Weight 190 lb BMI 33.7 BP 122/74 Intake Visit Reasons: ultrasound results Agronomy Supervisor Required: No Information Interpreted: non-clinical & clinical Accompanied by: Self / Same As Patient Allergies doxycycline Allergy (Intermediate, Verified 01/26/25 07:49) hives Post menopausal: Yes HPI Comments Details: Presenting for ultrasound follow-up complaining of bulk symptoms, pelvic pressure, no abnormal uterine bleeding, the patient is status post endometrial ablation. Pelvic ultrasound done on 01/05/2025 showed the following: Ultrasound of the pelvis is performed using both transabdominal and transvaginal transducers along with Doppler. Transvaginal imaging is performed due to inadequate visualization transabdominally. FINDINGS: Uterus: The uterus is anteverted and measures 16 x 9 x 11 cm. There are multiple, rounded heterogeneous likely partially calcified soft tissue lesions throughout the myometrium and questionable subserosal of the uterus. These lesions range from 2.3 cm to 6.3 cm in maximum dimensions. The double wall endometrial thickness is unable to elevate.. Multiple uterine fibroids as follow: 1. 5.6 x 3.5 x 4.6 cm. 2. 6.3 x 4.8 x 5.9 cm. 3. 2.3 x 2.1 x 2.5 cm. 4. 4.7 x 3.4 x 2.9 cm. 5. 2.5 x 1.9 x 2.7 cm. 6. 3.2 x 2.1 x 3 cm. Adnexa: Both ovaries are visualized. There is normal color flow to the adnexa. There is no ovarian torsion. There is no pelvic ascites or fluid collection. Right ovary measures 3 x 2 x 2 cm. Volume: 5 cc. No solid or cystic lesions. Left ovary measures 4 x 2 x 2 cm. Volume: 7 cc. No solid or cystic lesions. Last co testing [facility] in 07/27 [facility] Medical History (Updated 01/20/25 @ 10:33 by SLIME Andres) Vitamin D deficiency Essential hypertension PONV (postoperative nausea and vomiting) Lumbar degenerative disc disease Obesity (BMI 30-39.9) Multinodular goiter Surgical History History of back surgery Hx of colonoscopy History of lobectomy of thyroid (~07/19/20) History of tubal ligation History of endometrial ablation Family History Father No problems noted. Mother Heart disease Social History Household Members: Spouse Housing: House Are you a primary intensive care medicine specialist to a significant other at home: No Do you presently have visiting nurse or other home services: No Alcohol intake: current Alcohol intake frequency: 0-2 drinks per day Comment: all counts correct Patient Tobacco Use Status: Current someday Tobacco user Tobacco use type: Cigarette Cigarette Packs Per Day: 1 e-Cigarette/Vaping Use: Never Used Second Hand Smoke Exposure: Yes service: No Current occupational status: employed Sexual orientation: Straight/Heterosexual Gender identity: Female Cognitive needs: No Hearing needs: No Vision needs: Yes (Glasses) Female Reproductive History Menstrual Age of Menarche: 15 Review of Systems Const All systems reviewed & are unremarkable except as noted in HPI and below Reports as per HPI and Reports no additional complaints GI Reports no additional complaints Reports no additional complaints Physical Exam Vital Signs: Last Vital Signs BP 122/74 01/26/25 07:48 BMI result Body Mass Index 33.7 Assessment & Plan Assessment & Plan (1) Uterine myoma: Code(s): D25.9 - Leiomyoma of uterus, unspecified Category: Medical Plan: Discussed with the patient the results of the ultrasound and the size of the myomas . Discussed with the patient risk of myosarcoma and symptoms that are caused by myomas including but not limited to pelvic pain, pressure symptoms, abnormal uterine bleeding. In addition discussed with the patient options of treatment for myomas including: Serial ultrasounds periodically to follow-up on the size of the myoma while targeting the treatment against fibroids related symptoms ( control pills, Mirena IUD, progesterone treatment, GnRH agonist/antagonist , uterine artery embolization or endometrial ablation) versus surgical treatment including hysterectomy . All pros and cons, risks and benefits of all options were discussed with the patient. The patient understands that delay in surgical treatment in case of myosarcoma can affect her prognosis, after further discussion, the patient decided to proceed with surgical management. Discussed with the patient the different types of hysterectomies including, vaginal, laparoscopic assisted vaginal, robotic assisted laparoscopic,& abdominal with or without BSO. All pros, cons, risks and benefits of each approach were discussed the patient including evidence that morbidity is less and recovery is shorter with minimally invasive approaches to hysterectomy. Discussed with the patient the lack of availability of the robot DaVinci robot and/or minimally invasive consulting networking engineer specialist at [facility]. Will refer the patient to a tertiary care center at [facility]. Instructed the patient to call our office back in case a referral appointment is not scheduled, missed or canceled so that we will assist on rescheduling another appointment, the patient verbalized understanding agreed with the plan. This note was generated with a voice recognition program. Some errors may have been overlooked during the review of this note. Sometimes these errors may affect the content or meaning of a given sentence. Coding Level of Care Code Est Pt Level 3 (24747) Diagnoses Uterine myoma D25.9
[2025-01-26 07:48] VITALS: BP 122/74; BMI 33.7
== END 2025-01-26 08:45 | disposition home or self-care (01) ==
LOC: HO.HWS 07:40
PROVIDERS: PCP Internal Medicine; Visit Provider Obstetrics & Gynecology
DX: D25.9 Leiomyoma of uterus, unspecified (principal)
CPT/HCPCS: 99213

== ENCOUNTER → 2025-01-26 07:40 | Outpatient (BNVA) | payer OTHER, SELFPAY | PROVIDERS: PCP Internal Medicine; Visit Provider Obstetrics & Gynecology ==

== ENCOUNTER 2025-02-22 08:31 | Outpatient (REF) | payer OTHER, SELFPAY ==
--- NOTE | ~2025-02-22 | XR_ITS ---
EXAMINATION: XR KNEE, RIGHT CLINICAL INFORMATION: M25.561 - Pain in right knee COMPARISON: None available. TECHNIQUE: Three views of the right knee. FINDINGS: Joint space narrowing involving the medial compartment. Mild sclerosis at the articular surface of the medial tibial plateau and medial femoral condyle. No acute cortical disruption or malalignment. Small volume suprapatellar bursa joint effusion No lytic or blastic lesions. XR/XR knee RT 3V IMPRESSION: Mild medial compartment osteoarthrosis. Suprapatellar bursa joint effusion, small volume. Electronically signed by: Pratik Blank MD 02/24/2025 07:28 AM EDT
--- OUTSIDE RECORDS SUMMARY | 2025-02-22 09:45 | XMS_ITS | Clinical Summary ---
Author Organization 175 [facility] Address [address] [place] [address] Phone Care Team Providers Care Document Control Associate Name Role Phone Agustín Miramontes MD Primary Care Provider [phone] Allergies Active Allergy Reactions Criticality Noted Date Comments Doxycycline Hives 07/28/2024 Medications topiramate (TOPAMAX) 100 mg tablet Take 1 tablet (100 mg total) by mouth 1 (one) time each day. 05/12/2024 05/07/20 25 Active amLODIPine (NORVASC) 5 mg tablet Take 1 tablet (5 mg total) by mouth 1 (one) time each day. 10/19/2024 Active tirzepatide, weight loss, (Zepbound) 2.5 mg/0.5 mL injectionIndicat ions:Class 1 obesity due to excess calories with serious comorbidity and body mass index (BMI) of 33.0 to 33.9 in adult Inject 0.5 mL (2.5 mg total) under the skin every 7 (seven) days for 4 doses. 2 mL 01/20/2025 02/12/20 25 Active Problems Problem Noted Date Diagnosed Date Lumbar disc disease 07/28/2024 Multinodular goiter 07/28/2024 Obesity (BMI 30-39.9) 07/28/2024 Encounters Date Type Department Care Team Description 01/18/2025 Telephone Bariatric Surgery - [address] [address] Malik Sotelo MD Advice Only (Zepbound script) from Last 3 Months Surgical History Surgery [...] Care Team (Late st Contact Info) Description 03/04/2025 4:30 PM EDT Office Visit Bariatric Surgery - [place] [address] [facility] [address] [place] [id number] Malik Sotelo MD [address] [id number] Health Maintenance Due Date Last Done Comments [...] - 2023- season) 2024 09/19/2023, 11/10/2020, 10/20/2020 Cholesterol Screening (Lipid Panel) 07/29/2024 Colorectal Cancer Screening: Colonoscopy 07/29/2024 Depression Screening 07/29/2024 HIV Screening 07/29/2024 Hepatitis C Screening 07/29/2024 Social Influencers of Health Screening 07/29/2024 Influenza Vaccine (Season Ended) 2025 08/08/2023, 08/16/2022, 08/08/2021, Additional history exists HIB Vaccines Aged Out No longer eligi [...] age to complete this topic Meningococcal B Vaccine Aged Out No l onger eligible based on patient's age to complete [...] patient's age to complete this [place] [address] Care Teams Document Control Associate Relationship Specialty Start Date End Date Agustín Miramontes MD [address] [place] [address] [address] [place], [place] PCP - General Internal Medicine 09/18/18
== END 2025-02-22 08:32 | disposition home or self-care (01) ==
LOC: HO.XRAY 08:31
PROVIDERS: PCP Internal Medicine
DX: M25.561 Pain in right knee (principal); Z23 Encounter for immunization
CPT/HCPCS: 73562; 90471; 90715

== ENCOUNTER 2025-02-22 08:31 | Outpatient (AMB) | payer OTHER, SELFPAY ==
--- NOTE | 2025-02-22 08:39 | MHC.PC.OV ---
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 The issue began when descending stairs while holding her grandson, resulting in a pop sound and significant pain, necessitating an urgent care visit where Medrol 4mg (Manoj) and toradol injection provided relief. She uses a knee brace regularly for stability. Previous swelling in lower right leg led to an ultrasound and was negative for DVT. Hypertension management previously involved amlodipine 5mg, which she paused due to swelling, with control strategies now under consideration. Prediabetes (HbA1c of 5.8%) is managed through diet. Shingles vaccination was discussed alongside a lack of recent Tdap documentation (given in office today). The patient is planning for hysterectomy pending referral and is scheduled for her next mammogram in September. The patient will follow up with GI for clarity, she though that her colonoscopy was supposed to be done in 5 years instead of 3, according to notes, she is due in 2025. The patient is up to date on Dental and Eye exams. [facility] Medical History (Updated 02/22/25 @ 10:34 by SLIME Andres) Vitamin D deficiency Essential hypertension PONV (postoperative nausea and vomiting) Lumbar degenerative disc disease Obesity (BMI 30-39.9) Multinodular goiter Surgical History History of back surgery Hx of colonoscopy History of lobectomy of thyroid (~07/19/20) History of tubal ligation History of endometrial ablation Family History Father No problems noted. Mother Heart disease Social History Household Members: Spouse Housing: House Are you a primary patient care assistant to a significant other at home: No Do you presently have visiting nurse or other home services: No Alcohol intake: current Alcohol intake frequency: 0-2 drinks per day Comment: all counts correct Patient Tobacco Use Status: Current someday Tobacco user Tobacco use type: Cigarette Cigarette Packs Per Day: 1 e-Cigarette/Vaping Use: Never Used Second Hand Smoke Exposure: Yes service: No Current occupational status: employed Current occupational exposures/hazards: No Sexual orientation: Straight/Heterosexual Gender identity: Female Cognitive needs: No Hearing needs: No Vision needs: Yes (Glasses) Female Reproductive History Menstrual Age of Menarche: 15 Questionnaire PHQ-9 Over the last 2 weeks, how often have you been bothered by any of the following problems? 1. Little interest or pleasure in doing things: not at all 2. Feeling down, depressed, or hopeless: not at all 3. Trouble falling or staying asleep, or sleeping too much: not at all 4. Feeling tired or having little energy: not at all 5. Poor appetite or overeating: not at all 6. Feeling bad about yourself - or that you are a failure or have let yourself or your family down: not at all 7. Trouble concentrating on things, such as reading the newspaper or watching television: not at all 8. Moving or speaking so slowly that other people could have noticed. Or the opposite - being so fidgety or restless that you have been moving around a lot more than usual: not at all 9. Thoughts that you would be better off or of hurting yourself in some way: not at all Total score: 0 Depression Screening Interpretation: Negative Depression Screening Done: Yes Source: Developed by Drs. Devaughn Lauren, Mallory Garcia, Timothy Alegre and colleagues, with an educational shara from [employer] Thrive Questionnaire Date Thrive assessed: 02/20/25 I am a: Patient What is your living situation today?: I have a steady place to live Within the past 12 months, did the food you bought not last and you didn't have the money to get more?: Never true Within the past 12 months, did you worry whether your food would run out before you got money to buy more?: Never true Do you have trouble paying for medicines?: No Do you have trouble getting transportation to medical appointments?: No Do you have trouble paying your heating and electricity bill?: No Do you have trouble taking care of your child, family member or friend?: No Do you have trouble with day-to-day activities such as bathing, preparing meals, shopping, managing finances, etc.?: No Are you currently unemployed and looking for a job?: No Are you interested in more education?: No Please select the resources that you would like help with: None Currently or been in a relationship where the following occur: No concerns reported THRIVE Score: 0 AUDIT C Alcohol Use Questionnaire (AUDIT-C) 1. How often do you have a drink containing alcohol?: Never Total Score: 0 MYRA-7 AMB Questionnaire MYRA-7 Date MYRA - 7 assessed: 02/22/25 Feeling nervous, anxious, or on edge: 0 = Not at all Not being able to stop or control worryin = Not at all Worrying too much about different things: 0 = Not at all Trouble relaxin = Several days Being so restless that it is hard to sit still: 0 = Not at all Becoming easily annoyed or irritable: 0 = Not at all Feeling afraid as if something awful might happen: 0 = Not at all Total MYRA-7 score (0-4 normal; 5-9 mild; 10-14 moderate; 15-21 severe): 1 Source: Developed by Drs. Devaughn Lauren, Mallory Garcia, Timothy Alegre and colleagues, with an educational shara from [employer] Review of Systems Const Details: - Musculoskeletal: Reports right knee injury with associated swelling, previously necessitated urgent care visit. Denies other musculoskeletal complaints currently. - Cardiovascular: Denies shortness of breath or chest pain. - Neurological: No significant neurological symptoms reported. - Endocrine: Reports well-managed prediabetes; no symptoms of dysregulation noted. - Dermatologic: Discussed chickenpox history and potential shingles vaccination need. - Immunologic: Tdap overdue, previously given in 2013. Denies headache(s) Eyes Denies loss of vision ENT Denies vertigo, Denies dizziness, Denies headache(s) and Denies sore throat Card Denies chest pain, Denies leg edema and Denies lightheadedness Resp Denies cough, Denies hemoptysis and Denies wheezing GI Denies abdominal pain, Denies melena, Denies constipation, Denies diarrhea and Denies vomiting Denies urinary frequency, Denies dysuria and Denies urinary urgency Musc Reports arthralgias (right knee), Denies joint swelling, Denies numbness and Denies tingling Neuro Denies Abnormal speech present, Denies behavioral changes, Denies vertigo, Denies dizziness, Denies headache(s), Denies loss of vision, Denies memory loss, Denies numbness and Denies tingling Psych Denies anxiety, Denies behavioral changes, Denies depression, Denies memory loss and Denies panic attacks Lv/Lymph Denies easy bleeding and Denies easy bruising Aller/Immun Denies wheezing Physical exam (Primary Care) Vital Signs: Last Vital Signs Temp 97.5 F 02/22/25 08:43 Pulse 82 02/22/25 08:43 BP 132/80 02/22/25 08:43 Pulse Ox 98 02/22/25 08:43 Oxygen Delivery Method Room Air 02/22/25 08:43 BMI result Body Mass Index 33.8 Tobacco/Smoking Status: Tobacco use Status Tobacco use date assessed 01/20/25 02/22/25 08:40 Patient Tobacco Use Status Current someday Tobacco 02/22/25 08:40 Tobacco use type Cigarette 02/22/25 08:40 e-Cigarette/Vaping Use Never Used 02/22/25 08:40 PHQ-9: PHQ-9 Score PHQ-9: Total score 0 02/22/25 08:47 Depression Screening Interpretation: Negative Thrive Assessment: Date of Thrive Assessment Date Thrive assessed 02/20/25 02/22/25 08:40 Currently or been in a relationship where the following occur: No concerns reported Const General: healthy appearing, no acute distress, alert and awake Nutritional Appearance: well nourished Orientation/consciousness: oriented to person, oriented to place and oriented to time HENMT Ears: TM's normal bilaterally General nose exam: Normal nasal mucous membranes and turbinates present Eyes Conjunctivae: conjunctivae normal Sclerae: sclerae normal Pupils: Equal, round and reactive pupils present Neck Neck: Yes no lymphadenopathy and Yes no JVD Thyroid: Thyroid normal Carotids: no bruits Resp Effort & Inspection: normal respiratory effort and not tachypneic Auscultation: no crackles, no rales, no rhonchi and no wheezes Cardio Rate: regular rate Rhythm: regular rhythm Heart sounds: no murmurs and normal S1 and S2 GI Palpation (GI): Soft to palpation, nontender, no hepatomegaly and no splenomegaly Auscultation: normal bowel sounds General: Yes no CVA tenderness Back/Spine/Pelvis Back: no CVA tenderness Thoracic/Lumbar Spine: No lumbar spinal tenderness Skin General skin exam: no rashes or lesions noted and dry skin Neuro General: oriented to person, oriented to place and oriented to time Cranial nerves: Yes Equal, round and reactive pupils present Speech: No Abnormal speech present Gait exam (Neuro): Normal gait present Motor exam (neuro): no tremor noted Extrem Right upper extremity: full ROM Left upper extremity: full ROM Right lower extremity: full ROM and knee Details: tenderness Location: of the medial joint line; no edema Left lower extremity: full ROM; no edema Psych Mental Status: mental status grossly normal Speech and movement: Normal speech and movement present Affect: normal affect Attitude: cooperative Thought process: Normal thought process present Immunizations Boostrix Tdap 2.5 Lf unit-8 mcg-5 Lf/0.5 mL intramuscular syringe Performing Provider: SLIME Andres Performing Location[facility] [place] [facility] Administered by: HEATHER Gilliland on 02/22/25 09:05 Dose Route Admin Location Dispensed Lot Number Expiration Date NDC Lead Sustainability Specialist 0.5 mL IM Left Deltoid 0.5 mL [id number] 06/30/27 [id number] [place] VIS Given Date VIS Provided VIS Publication Date 02/22/25 Single Vaccine 21 Eligibility Eligibility Date Funding Source Not [facility] Eligible 02/22/25 Private Results Reviewed Results Reviewed: Laboratory Tests 12/17/24 12/17/24 08:26 08:33 WBC 4.1 L RBC 4.59 Hgb 14.4 Hct 42.4 MCV 92.4 MCH 31.4 RDW 13.5 Plt Count 325 Sodium 142 Potassium 4.4 Chloride 111 H Carbon Dioxide 23 BUN 17 H Creatinine 0.85 Estimated GFR > 60 Fasting Glucose 77 Estimat Average Glucose 120 Hemoglobin A1c % 5.8 Calcium 8.8 D AST 22 ALT 25 Alkaline Phosphatase 98 Triglycerides 138 Cholesterol 153 LDL Cholesterol, Calc 68 HDL Cholesterol 58 25-OH Vitamin D Total 42.1 TSH 0.75 Urine Color Yellow Urine Appearance Clear Urine pH 5.5 Ur Specific [place] 1.025 Urine Protein Negative Urine Glucose (UA) Negative Urine Ketones Negative Urine Blood Negative Urine Nitrite Negative Ur Leukocyte Esterase Negative Coding Level of Care Code New Pt Prev Care 40-64y(33511) Diagnoses Annual physical exam Z00.00 Essential hypertension I10 Vitamin D deficiency E55.9 Leg edema, right R60.0 Acute pain of right knee M25.561 Chronicity: acute Right leg pain M79.604 Obesity (BMI 30-39.9) E66.9 Multinodular goiter E04.2 Time Spent (min) 39 Assessment & Plan Assessment & Plan (1) Annual physical exam: Code(s): Z00.00 - Encounter for general adult medical examination without abnormal findings Category: Medical (2) Essential hypertension: Code(s): I10 - Essential (primary) hypertension Category: Medical (3) Vitamin D deficiency: Code(s): E55.9 - Vitamin D deficiency, unspecified Category: Medical (4) Leg edema, right: Code(s): R60.0 - Localized edema Category: Medical (5) Right knee pain: Code(s): M25.561 - Pain in right knee Category: Medical Qualifiers: Chronicity: acute Qualified Code(s): M25.561 - Pain in right knee (6) Right leg pain: Code(s): M79.604 - Pain in right leg Category: Medical (7) Obesity (BMI 30-39.9): Code(s): E66.9 - Obesity, unspecified Category: Medical (8) Multinodular goiter: Comment: S/P right thyroid lobectomy by Dr. Clinton in July 2020 due to compressive symptoms Code(s): E04.2 - Nontoxic multinodular goiter Category: Medical Plan Today's discussion focused on her right knee imaging following injury, hypertension drug adjustment due to right leg swelling/aches with continuous monitoring advised. A1c emphasis on dietary controls was reinforced with current successful adherence. Reinforced lower cholesterol diet and activity as tolerated to improve BMI and overall health. Continue vitamin D3 50 mcg daily. Tdap administration done in office today. Plans for a future mammogram, and adherence to dental/eye exam schedules were confirmed. At-home blood pressure monitoring was suggested in the interim while amlodipine 5 mg is off. Discussed with the patient that she will be started on different medication if her blood pressure starts to elevate. Informed the patient's primary doctor (Dr. Miramontes) who wants the patient to be placed on losartan 50 mg daily instead. 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 The patient was counseled by her OBGYN about the risk of myosarcoma and the symptoms of myomas itself, like pelvic pain, pressure, and abnormal bleeding. The different treatment options were discussed and the patient opted for hysterectomy; she currently awaiting referral to [facility] for hysterectomy. Patient was informed and verbally consented to the use of an ambient scribe for clinic note documentation during this visit. Orders: Orders Vitamin D 25-OH Total 1 Year D25.9 - Leiomyoma of uterus, unspecified, E55.9 - Vitamin D deficiency, unspecified, I10 - Essential (primary) hypertension, R42 - Dizziness and giddiness, R73.01 - Impaired fasting glucose, Z00.00 - Encounter for general adult medical examination without abnormal findings Glucose Fasting 1 Year D25.9 - Leiomyoma of uterus, unspecified, E55.9 - Vitamin D deficiency, unspecified, I10 - Essential (primary) hypertension, R42 - Dizziness and giddiness, R73.01 - Impaired fasting glucose, Z00.00 - Encounter for general adult medical examination without abnormal findings UA CC w/rflx Micro + Cult 1 Year D25.9 - Leiomyoma of uterus, unspecified, E55.9 - Vitamin D deficiency, unspecified, I10 - Essential (primary) hypertension, R42 - Dizziness and giddiness, R73.01 - Impaired fasting glucose, Z00.00 - Encounter for general adult medical examination without abnormal findings TSH reflex Free T4 1 Year D25.9 - Leiomyoma of uterus, unspecified, E55.9 - Vitamin D deficiency, unspecified, I10 - Essential (primary) hypertension, R42 - Dizziness and giddiness, R73.01 - Impaired fasting glucose, Z00.00 - Encounter for general adult medical examination without abnormal findings TDaP Immunization Today Z23 - Encounter for immunization XR knee RT 3V Today M25.561 - Pain in right knee Complete Blood Count Auto Diff 1 Year D25.9 - Leiomyoma of uterus, unspecified, E55.9 - Vitamin D deficiency, unspecified, I10 - Essential (primary) hypertension, R42 - Dizziness and giddiness, R73.01 - Impaired fasting glucose, Z00.00 - Encounter for general adult medical examination without abnormal findings Comprehensive [place]. Panel Fast 1 Year D25.9 - Leiomyoma of uterus, unspecified, E55.9 - Vitamin D deficiency, unspecified, I10 - Essential (primary) hypertension, R42 - Dizziness and giddiness, R73.01 - Impaired fasting glucose, Z00.00 - Encounter for general adult medical examination without abnormal findings Lipid Panel 1 Year D25.9 - Leiomyoma of uterus, unspecified, E55.9 - Vitamin D deficiency, unspecified, I10 - Essential (primary) hypertension, R42 - Dizziness and giddiness, R73.01 - Impaired fasting glucose, Z00.00 - Encounter for general adult medical examination without abnormal findings Hemoglobin A1c 1 Year D25.9 - Leiomyoma of uterus, unspecified, E55.9 - Vitamin D deficiency, unspecified, I10 - Essential (primary) hypertension, R42 - Dizziness and giddiness, R73.01 - Impaired fasting glucose, Z00.00 - Encounter for general adult medical examination without abnormal findings Medications: New losartan 50 mg PO DAILY 30 tabs 3RF I10 - Essential (primary) hypertension Discontinued amlodipine Discontinued Reason: Patient Refused 5 mg PO DAILY 30 tabs 3RF Patient Instructions: - Wear knee brace consistently when active to provide support. - Continue dietary habits to manage blood sugar, cholesterol. - Take blood pressure readings twice daily at home, record to monitor. -start losartan 50 mg daily - Plan shingle vaccination appointment as suggested. - Follow referral process for upcoming hysterectomy at [facility]. - Ensure attendance at scheduled mammogram in September. - Continue Vitamin D3 supplement - Return for evaluation if new symptoms arise or if current symptoms change.
[2025-02-22 08:43] VITALS: BP 132/80; PULSE 82; TEMP 36.4; O2SAT 98; BMI 33.8
== END 2025-02-22 09:29 | disposition home or self-care (01) ==
LOC: HO.HMCH 08:32
PROVIDERS: PCP Internal Medicine
DX: Z00.00 Encounter for general adult medical examination without abnormal findings (principal); I10 Essential (primary) hypertension; E66.9 Obesity, unspecified; Z68.33 Body mass index [BMI] 33.0-33.9, adult; E55.9 Vitamin D deficiency, unspecified; R60.0 Localized edema; M25.561 Pain in right knee; M79.604 Pain in right leg; E04.2 Nontoxic multinodular goiter; Z23 Encounter for immunization

== ENCOUNTER → 2025-02-22 09:49 | Outpatient (BNV) | payer OTHER, SELFPAY | PROVIDERS: PCP Internal Medicine; Visit Provider Radiology Diagnostic Radiology | DX: M17.11 Unilateral primary osteoarthritis, right knee (principal); M25.461 Effusion, right knee | CPT/HCPCS: 73562 ==

== ENCOUNTER 2025-05-11 08:27 | Outpatient (REF) | payer OTHER, SELFPAY ==
--- NOTE | ~2025-05-11 | MR_ITS ---
EXAMINATION: MR PELVIS WITHOUT THEN WITH IV CONTRAST HISTORY: LEIOMYOMA OF UTERUS , LARGE FIBROID. TECHNIQUE: Axial T1, fat-suppressed T2, and fat-suppressed T1, and sagittal and coronal T2-weighted MR images of the pelvis were obtained. Subsequently, sagittal and axial fat-suppressed T1-weighted images were obtained after the intravenous administration of 9 mL Gadavist. COMPARISON: Correlation is made with a pelvic ultrasound dated 01/05/2025. FINDINGS: The uterus is enlarged measuring 15.4 x 9.5 x 10.1 cm. Multiple fibroids are noted as described below: Left posterior fibroid measuring 6.6 x 4.9 x 5.7 cm. Right fundal fibroid measuring 5.1 x 4.1 x 3.3 cm Left fundal fibroid measuring 5.4 x 4.7 x 3.7 cm. Left subserosal fibroid measuring 3.5 x 1.7 x 1.9 cm Left uterine body fibroid measuring 2.6 x 2.4 x 1.5 cm Left anterior fibroid measuring 2.7 x 2.2 x 2.3 cm Numerous additional smaller fibroids are noted. The endometrial stripe is distorted by multiple fibroids. There are multiple nabothian cysts in the cervix. The cervix is otherwise unremarkable. The right ovary measures 3.2 x 2.1 x 1.9 cm. The left ovary measures 2.9 x 2.2 x 1.8 cm. Follicles are seen in both ovaries. There is no ascites or pelvic lymphadenopathy. The urinary bladder is partially collapsed. The patient is status post L5-S1 fusion. MR/MR pelvis wo/w con IMPRESSION: Fibroid uterus as described. Electronically signed by: Devaughn Moran MD 05/11/2025 09:38 AM EDT
--- OUTSIDE RECORDS SUMMARY | 2025-05-11 08:34 | XMS_ITS | Clinical Summary ---
Author Organization 175 [facility] Address 175 [place] [address] Phone Care Team Providers Care Weigher Alloy Name Role Phone Agustín Miramontes MD Primary Care Provider Allergies Active Allergy Reactions Criticality Noted Date Comments Doxycycline Hives 07/28/2024 Medications topiramate (TOPAMAX) 100 mg tablet Take 1 tablet (100 mg total) by mouth 1 (one) time each day. 05/12/2024 Active amLODIPine (NORVASC) 5 mg tablet Take 1 tablet (5 mg total) by mouth 1 (one) time each day. 10/19/2024 Active Active Problems Problem Noted Date Diagnosed Date Lumbar disc disease 07/28/2024 Multinodular goiter 07/28/2024 Obesity (BMI 30-39.9) 07/28/2024 Encounters Date Type Department Care Team Description 03/04/2025 4:30 PM EDT Office Visit Bariatric Surgery [address] [phone] Malik Sotelo MD Class 1 obesity due to excess calories with body mass index (BMI) of 34.0 to 34.9 in adult, unspecified whether serious comorbidity present (Primary Dx) 03/04/2025 Telephone Bariatric Surgery [address] [phone] Malik Sotelo MD from Last 3 Months Surgical History Surgery [...] Sign Reading Time Taken Comments Blood Pressure 144/96 03/04/2025 4:04 PM EDT Pulse 82 03/04/2025 4:04 PM EDT Temperature 36.6 C (97.8 F) 03/04/2025 4:04 PM EDT Respiratory Rate - - Oxygen Saturation - - Inhaled Oxygen Concentration - - Weight 88.9 kg (196 lb) 03/04/2025 4:04 PM EDT Height 160 cm (5' 3 ) 03/04/2025 4:04 PM EDT Body Mass Index 34.72 03/04/2025 4:04 PM EDT Plan of Treatment Upcoming Encounters Date Type Department Care Team (Late st Contact Info) Description 07/15/2025 8:15 AM EDT Office Visit Bariatric Surgery - [place] [address] [facility] [address] [place] [address] Malik Sotelo MD [address] [facility] [address] [place] [address] Health Maintenance Due Date Last Done Comments Breast Cancer Screening 1972 Hepatitis B Vaccines (1 of 3 - 19+ 3-dose series) 1991 11/14/2016, 06/06/2016, 05/08/2016 Cervical Cancer Screening: Pap Smear 1993 Pneumococcal Vaccine: 50+ Years (1 of 1 - PCV) 2022 Zoster Vaccines (1 of 2) 2022 COVID-19 Vaccine ( - season) 2024 09/19/2023, 11/10/2020, 10/20/2020 Cholesterol Screening (Lipid Panel) 07/29/2024 Colorectal Cancer Screening: Colonoscopy 07/29/2024 Depression Screening 07/29/2024 HIV Screening 07/29/2024 Hepatitis C Screening 07/29/2024 Social Influencers of Health Screening 07/29/2024 Influenza Vaccine (#1) 2025 , 08/16/2022, 08/08/2021, Additional history exists DTaP,Tdap,and Td Vaccines (2 - Td or Tdap) 02/22/2035 02/22/2025 HIB Vaccines Aged Out No longer eligi [...] patient's age to complete this topic [place] [address] [address] Care Teams Weigher Alloy Relationship Specialty Start Date End Date Agustín Miramontes MD [address] [place] [address] [address] [place], [place] PCP - General Internal Medicine 09/18/18
== END 2025-05-11 08:28 | disposition home or self-care (01) ==
LOC: HO.MRI 08:27
PROVIDERS: PCP Internal Medicine; Visit Provider Student in an Organized Health Care Education/Training Program
DX: D25.9 Leiomyoma of uterus, unspecified (principal)
CPT/HCPCS: 72197; A9585

== ENCOUNTER → 2025-05-11 08:43 | Outpatient (BNV) | payer OTHER, SELFPAY | PROVIDERS: PCP Internal Medicine; Visit Provider Radiology Diagnostic Radiology | DX: D25.9 Leiomyoma of uterus, unspecified (principal) | CPT/HCPCS: 72197 ==

== ENCOUNTER 2025-06-18 10:29 | Outpatient (AMB) | payer OTHER, SELFPAY ==
--- NOTE | 2025-06-18 10:32 | MHC.PC.OV ---
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 Accompanied by: Self / Same As Patient Allergies doxycycline Allergy (Intermediate, Verified 06/19/25 04:26) hives Medication List - Last Reconciled 06/19/25 by Agustín Miramontes MD cholecalciferol (vitamin D3) 50 mcg PO DAILY 90 days ciclopirox 0.77% 1 appl topical BID 2 weeks losartan 50 mg PO DAILY Tobacco use date assessed: 06/18/25 Dental Screening Dental Screen Date: 06/18/25 Did you have a dental visit in the last 12 months?: Yes Did you have a dental problem in the last 6 months where you did not have access to dental care?: No Was dental information given to patient?: Patient has dentist HPI rt knee pain/swelling HPI Details Patient comes in today for further evaluation of her right knee Recalls that she hurt her right knee back in February 2025 while going down some stairs in [place] She did not recall twisting or spraining her knee and states that just suddenly felt a sharp pain in her right knee when she was walking down the stairs States that she went to an urgent care center there in [place] for her knee pain but no x-rays were done at the time She eventually requested for x-rays of the knee to be done here at [facility] as her knee pain has persisted over the past 3 to 4 months X-rays of the right knee done here on 02/22/2025 revealed (+) suprapatellar effusion Patient has been referred to and is starting physical therapy next week but would like to know if there are anything else that can be done to help with her knee pain No other acute complaints or symptoms are noted at present Adds that she needs her Ciclopirox foot/toenail cream refilled - 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 Mother Heart disease Social History Household Members: Spouse Housing: House Are you a primary senior care assistant to a significant other at home: No Do you presently have visiting nurse or other home services: No Alcohol intake: current Alcohol intake frequency: 0-2 drinks per day Comment: all counts correct Patient Tobacco Use Status: Current someday Tobacco user Tobacco use type: Cigarette Cigarette Packs Per Day: 1 e-Cigarette/Vaping Use: Never Used Second Hand Smoke Exposure: Yes service: No Current occupational status: employed Current occupational exposures/hazards: No Sexual orientation: Straight/Heterosexual Gender identity: Female Cognitive needs: No Hearing needs: No Vision needs: Yes (Glasses) Female Reproductive History Menstrual Age of Menarche: 15 Questionnaire PHQ-9 Over the last 2 weeks, how often have you been bothered by any of the following problems? 1. Little interest or pleasure in doing things: not at all 2. Feeling down, depressed, or hopeless: not at all 3. Trouble falling or staying asleep, or sleeping too much: not at all 4. Feeling tired or having little energy: not at all 5. Poor appetite or overeating: not at all 6. Feeling bad about yourself - or that you are a failure or have let yourself or your family down: not at all 7. Trouble concentrating on things, such as reading the newspaper or watching television: not at all 8. Moving or speaking so slowly that other people could have noticed. Or the opposite - being so fidgety or restless that you have been moving around a lot more than usual: not at all 9. Thoughts that you would be better off or of hurting yourself in some way: not at all Total score: 0 Depression Screening Interpretation: Negative Depression Screening Done: Yes 36249 - PHQ-9 Billing: Yes Source: Developed by Drs. Devaughn Lauren, Mallory Garcia, Timothy Alegre and colleagues, with an educational shara from [employer]. Thrive Questionnaire Date Thrive assessed: 06/18/25 I am a: Patient What is your living situation today?: I have a steady place to live Within the past 12 months, did the food you bought not last and you didn't have the money to get more?: Never true Within the past 12 months, did you worry whether your food would run out before you got money to buy more?: Never true Do you have trouble paying for medicines?: No Do you have trouble getting transportation to medical appointments?: No Do you have trouble paying your heating and electricity bill?: No Do you have trouble taking care of your child, family member or friend?: No Do you have trouble with day-to-day activities such as bathing, preparing meals, shopping, managing finances, etc.?: No Are you currently unemployed and looking for a job?: No Are you interested in more education?: No Please select the resources that you would like help with: None Currently or been in a relationship where the following occur: No concerns reported THRIVE Score: 0 AUDIT C Alcohol Use Questionnaire (AUDIT-C) 1. How often do you have a drink containing alcohol?: Never 3. How often do you have six or more drinks on one occasion?: Never Total Score: 0 Score Reviewed/Action Taken: Yes MYRA-7 AMB Questionnaire MYRA-7 Date MYRA - 7 assessed: 06/18/25 Feeling nervous, anxious, or on edge: 0 = Not at all Not being able to stop or control worryin = Not at all Worrying too much about different things: 0 = Not at all Trouble relaxin = Several days Being so restless that it is hard to sit still: 0 = Not at all Becoming easily annoyed or irritable: 0 = Not at all Feeling afraid as if something awful might happen: 0 = Not at all Total MYRA-7 score (0-4 normal; 5-9 mild; 10-14 moderate; 15-21 severe): 1 Source: Developed by Drs. Devaughn Lauren, Timothy Georges and colleagues, with an educational shara from [employer]. Review of Systems Const Denies chills, Denies fatigue, Denies fever(s) and Denies headache(s) ENT Denies dysphagia, Denies dizziness, Denies otalgia, Denies headache(s), Denies neck pain, Denies odynophagia and Denies sore throat Card Denies chest pain, Denies palpitations and Denies dyspnea Resp Denies chest congestion, Denies cough and Denies dyspnea GI Denies abdominal pain, Reports constipation (at times), Denies dysphagia, Denies heartburn, Denies diarrhea, Denies nausea, Denies odynophagia and Denies vomiting Denies nocturia, Denies dysuria and Denies urinary urgency Musc Reports back pain (improved with back surgery in 09/2023), Reports arthralgias (right knee - see HPI) and Denies neck pain Skin/Breast Denies rash Neuro Denies dizziness and Denies headache(s) Psych Denies anxiety Endo Denies fatigue and Denies palpitations Physical exam (Primary Care) Vital Signs: Last Vital Signs Pulse 89 06/18/25 10:36 BP 122/80 06/18/25 10:36 Pulse Ox 98 06/18/25 10:36 Oxygen Delivery Method Room Air 06/18/25 10:36 BMI result Body Mass Index 35.4 Tobacco/Smoking Status: Tobacco use Status Tobacco use date assessed 06/18/25 06/18/25 10:40 Patient Tobacco Use Status Current someday Tobacco 06/18/25 10:40 Tobacco use type Cigarette 06/18/25 10:40 e-Cigarette/Vaping Use Never Used 06/18/25 10:40 PHQ-9: PHQ-9 Score PHQ-9: Total score 0 06/18/25 11:06 Depression Screening Interpretation: Negative Thrive Assessment: Date of Thrive Assessment Date Thrive assessed 06/18/25 06/18/25 10:40 Currently or been in a relationship where the following occur: No concerns reported Const General: no acute distress and alert HENMT Throat: Yes posterior oropharynx normal and Yes tonsils normal (no TP congestion) Neck Neck: Yes supple and No lymphadenopathy Thyroid: Thyroid normal Resp Auscultation: clear to auscultation bilaterally, no rales and no wheezes Cardio Rate: regular rate Rhythm: regular rhythm Heart sounds: no murmurs GI Palpation (GI): Soft to palpation and nontender Auscultation: normal bowel sounds General: Yes no CVA tenderness Back/Spine/Pelvis Back: no CVA tenderness Thoracic/Lumbar Spine: lumbar spinal tenderness (mild) Skin Rashes: no rashes Extrem General: Yes no clubbing, cyanosis or edema Right lower extremity: knee Details: tenderness Location: of the medial joint line; no swelling Coding Level of Care Code Est Pt Level 3 (50659) Diagnoses Acute pain of right knee M25.561 Chronicity: acute Onychomycosis of toenail B35.1 Additional Codes PHQ-9 - 84394 - PHQ-9 Billing: Yes ([id number]) Assessment & Plan Assessment & Plan (1) Right knee pain: Code(s): M25.561 - Pain in right knee Category: Medical Qualifiers: Chronicity: acute Qualified Code(s): M25.561 - Pain in right knee Plan: Have advised patient that her ongoing right knee issues are likely due to a sprain/injury to her ligaments, particularly the MCL based on the location of her pain States that she has been wearing a knee brace when she is up and about and when at work for the past few weeks and feels that the brace helps keep her pain from increasing further X-rays of the right knee done back in February 2025 revealed only (+) suprapatellar effusion Have advised patient to proceed with physical therapy as planned and if PT does not help, we can then order an MRI of her knee for further evaluation (2) Onychomycosis of toenail: Code(s): B35.1 - Tinea unguium Category: Medical Plan: Continue Ciclopirox 0.77% apply to affected toenails BID x 2 weeks - Rx refilled, per request Plan To return as scheduled in February 2026 for her annual physical examination Medications: New ciclopirox 0.77% 1 appl topical BID 90 grams 0RF 2 weeks
--- OUTSIDE RECORDS SUMMARY | 2025-06-18 10:35 | XMS_ITS | Clinical Summary ---
Author Organization [address] [place] [address] [place] [id number] Phone Care Team Providers Care Aed Trainer Name Role Phone Agustín Miramontes MD Primary [...] Multinodular goiter 07/28/2024 Obesity (BMI 30-39.9) 07/28/2024 Surgical History Surgery Date Site/Laterality Comments ENDOMETRIAL [...] AM EDT Office Visit Bariatric Surgery - [place] [address] [place] [address] Malik Sotelo MD [address] [facility] [address] [place] [address] Health Maintenance Due Date Last Done Comments [...] Panel) 07/29/2024 Colorectal Cancer Screening: Colonoscopy 07/29/2024 HIV Screening 07/29/2024 Hepatitis C Screening 07/29/2024 Social Influencers of Health Screening 07/29/2024 Depression Screening 11/04/2024 Influenza Vaccine (#1) 2025 , 08/16/2022, 08/08/2021, [...] patient's age to complete this topic Insurance [employer] [employer] [facility] Care Teams Aed Trainer Relationship Specialty Start Date End Date Agustín Miramontes MD [address] [place] [address] [address] [place], [place] PCP - General Internal Medicine 09/18/18
[2025-06-18 10:36] VITALS: BP 122/80; PULSE 89; O2SAT 98; BMI 35.4
== END 2025-06-18 11:05 | disposition home or self-care (01) ==
LOC: HO.HMCH 10:30
PROVIDERS: PCP Internal Medicine; Visit Provider Internal Medicine
DX: M25.561 Pain in right knee (principal); B35.1 Tinea unguium

== ENCOUNTER → 2025-06-18 10:29 | Outpatient (BNVA) | payer OTHER, SELFPAY | PROVIDERS: PCP Internal Medicine; Visit Provider Internal Medicine | DX: M25.561 Pain in right knee (principal); B35.1 Tinea unguium | CPT/HCPCS: 96127 ==

== ENCOUNTER → 2025-07-29 07:25 | Outpatient (BNV) | payer OTHER, SELFPAY | PROVIDERS: PCP Internal Medicine; Visit Provider Radiology Diagnostic Radiology | DX: S83.411A Sprain of medial collateral ligament of right knee, initial encounter (principal); S83.421A Sprain of lateral collateral ligament of right knee, initial encounter; S86.811A Strain of other muscle(s) and tendon(s) at lower leg level, right leg, initial encounter; M25.461 Effusion, right knee; M17.11 Unilateral primary osteoarthritis, right knee | CPT/HCPCS: 73721 ==

== ENCOUNTER 2025-07-29 07:28 | Outpatient (REF) | payer OTHER, SELFPAY ==
--- NOTE | ~2025-07-29 | MR_ITS ---
CLINICAL HISTORY: M25.561 - Pain in right knee --- Additional Notes or Special Instructions: Patient FAILED physical therapy MR right knee without gadolinium Comparison: CR/SR - XR KNEE RT 3V - 02/22/25 10:03 EDT Findings: No fractures. No pathologic bone lesions. No cartilage defects. Moderate joint effusion. Infrapatellar subcutaneous edema. Sprain of the medial and lateral collateral ligaments without tear. Tear of the medial patellar retinaculum. Lateral patellar retinaculum is intact. No tears of the cruciate ligaments. Iliotibial band is intact. Partial tear of the patellar tendon near its insertion on the patella. No tears of the quadriceps, popliteus, or flexor tendons. Mucoid degeneration of the posterior horn of the medial meniscus. Lateral meniscus is within normal limits. IMPRESSION: 1. Partial tear of the patellar tendon near its patellar insertion. 2. Tear of the medial patellar retinaculum. 3. Sprain of the medial and lateral collateral ligaments without tear. 4. Mucoid degeneration of the posterior horn of the medial meniscus. 5. Moderate joint effusion. This document has been electronically signed by: Tory Craft MD on 07/30/2025 18:14:56
--- OUTSIDE RECORDS SUMMARY | 2025-07-29 07:33 | XMS_ITS | Clinical Summary ---
Author Organization [address] [place] [address] [place] [phone] Phone Care Team Providers Care Hand Finisher Name Role Phone Agustín Miramontes MD Primary Care Provider [phone] Allergies Active Allergy Reactions Criticality Noted Date [...] Care Team (Late st Contact Info) Description 12/14/2025 8:00 AM EST Office Visit Bariatric Surgery - [place] [address] [place] [address] Malik Sotelo MD [facility] [place] [address] Health Maintenance Due Date Last Done Comments Breast Cancer Screening 1972 Hepatitis B Vaccines (1 of 3 - 19+ 3-dose series) 1991 11/14/2016, 06/06/2016, 05/08/2016 Cervical Cancer Screening: Pap Smear 1993 Pneumococcal Vaccine: 50+ Years (1 of 1 - PCV) 2022 Zoster Vaccines (1 of 2) 2022 Cholesterol Screening (Lipid Panel) 07/29/2024 Colorectal Cancer Screening: Colonoscopy 07/29/2024 HIV Screening 07/29/2024 Hepatitis C Screening 07/29/2024 Social Influencers of Health Screening 07/29/2024 Depression Screening 11/04/2024 COVID-19 Vaccine ( season) 2025 09/19/2023, 11/10/2020, 10/20/2020 Influenza Vaccine (#1) 2025 , 08/16/2022, 08/08/2021, [...] patient's age to complete this topic Insurance [employer] [facility] [employer] Care Teams Hand Finisher Relationship Specialty Start Date End Date Agustín Miramontes MD [address] [place] [address] [address] [place], [place] PCP - General Internal Medicine 09/18/18
== END 2025-07-29 07:29 | disposition home or self-care (01) ==
LOC: HO.MRI 07:28
PROVIDERS: PCP Internal Medicine; Visit Provider Internal Medicine
DX: M25.561 Pain in right knee (principal)
CPT/HCPCS: 73721

== ENCOUNTER 2025-08-04 10:41 | Outpatient (AMB) | payer OTHER, SELFPAY ==
--- NOTE | 2025-08-04 10:58 | A.OFFVIS_ITS ---
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 Patient was seen by urgent care and followed up with her PCP due to knee pain after she was going down the stairs, felt a pop with significant pain. She uses a knee brace for stability. US was performed due to swelling, revealing negative DVT. MRI was obtained. Today patient reports pain that is located at the medial aspect of knee. States her pain is worse night and has difficulty with prolong walking and stair use. She has been attending physical therapy. She also complains of leg swelling in both of her legs. Hx of lumbar surgery here at [facility]. 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 She states she was walking down the stairs when she felt a pop in her knee along with significant pain and swelling. She had been seen by her primary care doctor who sent her to physical therapy. She later had an MRI performed which was significant for partial tearing of her patellar tendon along with a retinacular tear and MCL lot LCL sprain. She continues to have discomfort along the medial aspect of the knee. She also complains of swelling down the leg. [facility] Medical History Vitamin D deficiency Essential hypertension PONV (postoperative nausea and vomiting) Lumbar degenerative disc disease Obesity (BMI 30-39.9) Multinodular goiter Surgical History History of back surgery Hx of colonoscopy History of lobectomy of thyroid (~07/19/20) History of tubal ligation History of endometrial ablation Family History Father No problems noted. Mother Heart disease Social History Household Members: Spouse Housing: House Are you a primary career services coordinator to a significant other at home: No Do you presently have visiting nurse or other home services: No Alcohol intake: current Alcohol intake frequency: 0-2 drinks per day Comment: all counts correct Patient Tobacco Use Status: Current someday Tobacco user Tobacco use type: Cigarette Cigarette Packs Per Day: 1 e-Cigarette/Vaping Use: Never Used Second Hand Smoke Exposure: Yes service: No Current occupational status: employed Current occupational exposures/hazards: No Sexual orientation: Straight/Heterosexual Gender identity: Female Cognitive needs: No Hearing needs: No Vision needs: Yes (Glasses) Female Reproductive History Menstrual Age of Menarche: 15 Review of Systems Const All systems reviewed & are unremarkable except as noted in HPI and below Physical Exam Vital Signs: BMI result Body Mass Index 35.4 Const General: cooperative and no acute distress Orientation/consciousness: patient oriented x3 Resp Effort & Inspection: normal respiratory effort and able to speak in complete sentences Cardio Peripheral pulses: Peripheral pulses 2+ throughout Neuro General: patient oriented x3 Extrem Other: Right knee is normal to inspection she does have a moderate joint effusion present. She has full range of motion both active and passive. Tenderness along the medial retinaculum and also lateral retropatellar tenderness present. No ligamentous laxity. Calf supple and nontender neurovascularly intact. Results Reviewed Results Reviewed: IMPRESSION: 1. Partial tear of the patellar tendon near its patellar insertion. 2. Tear of the medial patellar retinaculum. 3. Sprain of the medial and lateral collateral ligaments without tear. 4. Mucoid degeneration of the posterior horn of the medial meniscus. 5. Moderate joint effusion. Assessment & Plan Assessment & Plan (1) Traumatic partial division of patellar tendon: Code(s): S76.199A - Other specified injury of unspecified quadriceps muscle, fascia and tendon, initial encounter Category: Medical (2) Traumatic medial retinacular tear of knee: Code(s): S86.819A - Strain of other muscle(s) and tendon(s) at lower leg level, unspecified leg, initial encounter Category: Medical (3) Osteoarthritis of right patellofemoral joint: Code(s): M17.11 - Unilateral primary osteoarthritis, right knee Category: Medical (4) MCL sprain of right knee: Code(s): S83.411A - Sprain of medial collateral ligament of right knee, initial encounter Category: Medical (5) Knee LCL sprain: Code(s): S83.429A - Sprain of lateral collateral ligament of unspecified knee, initial encounter Category: Medical Plan I did provide the patient with a brace that was fit for her in the office today to help with stability. She will use this for activities or prolonged standing and walking. I did place a new order for physical therapy with updated diagnoses. I gave her a prescription for Celebrex to take twice a day for 2 weeks to help with the inflammation. I did offer to aspirate her right knee to help with the discomfort which she would like to hold off on at this time. I would like to see her back in 6 weeks for re-evaluation she can call to cancel if she is doing well otherwise I will see her as planned. Orders: Orders PT Evaluation and Treatment Today M17.11 - Unilateral primary osteoarthritis, right knee, S76.199A - Other specified injury of unspecified quadriceps muscle, fascia and tendon, initial encounter, S83.411A - Sprain of medial collateral ligament of right knee, initial encounter, S83.429A - Sprain of lateral collateral ligament of unspecified knee, initial encounter, S86.819A - Strain of other muscle(s) and tendon(s) at lower leg level, unspecified leg, initial encounter XR knee standing BI Today M25.561 - Pain in right knee, M25.562 - Pain in left knee Medications: New celecoxib (Celebrex) 200 mg PO BID 60 caps 3RF 30 days Coding Level of Care Code New Pt Level 3 (35321) Complex EM visit Add On G2211 Diagnoses Traumatic partial division of patellar tendon S76.199A Traumatic medial retinacular tear of knee S86.819A Osteoarthritis of right patellofemoral joint M17.11 MCL sprain of right knee S83.411A Knee LCL sprain S83.429A
[2025-08-04 11:02] VITALS: BMI 35.4
--- OUTSIDE RECORDS SUMMARY | 2025-08-04 12:15 | XMS_ITS | Clinical Summary ---
Author Organization [address] [place] [address] [place] [phone] Phone Care Team Providers Care Area Intelligence Technician Name Role Phone Agustín Miramontes MD Primary [...] AM EST Office Visit Bariatric Surgery - [place] [address] [place] [address] Malik Sotelo MD [facility] [place] [address] Health Maintenance Due Date Last Done Comments Breast Cancer Screening 1972 Colorectal Cancer Screening: Colonoscopy 1972 Hepatitis B Vaccines (1 of 3 - 19+ 3-dose series) 1991 11/14/2016, 06/06/2016, 05/08/2016 Cervical Cancer Screening: Pap Smear 1993 Pneumococcal Vaccine: 50+ Years (1 of 1 - PCV) 2022 Zoster Vaccines (1 of 2) 2022 Cholesterol Screening (Lipid Panel) 07/29/2024 HIV Screening 07/29/2024 Hepatitis C Screening 07/29/2024 Social Influencers of Health Screening 07/29/2024 Depression Screening 11/04/2024 COVID-19 Vaccine ( - season) 2025 09/19/2023, 11/10/2020, 10/20/2020 Influenza Vaccine (#1) 2025 , 08/16/2022, 08/08/2021, Additional history exists DTaP,Tdap,and Td Vaccines (2 - Td or Tdap) 02/22/2035 02/22/2025 RSV Immunization Adult Patients (1 - 1-dose 75+ series) 2047 HIB Vaccines Aged Out No longer eligi [...] patient's age to complete this topic Insurance [employer] [facility] Care Teams Area Intelligence Technician Relationship Specialty Start Date End Date Agustín Miramontes MD [address] [place] [address] [address] [place], [place] PCP - General Internal Medicine 09/18/18
== END 2025-08-04 12:05 | disposition home or self-care (01) ==
LOC: HO.HOS 10:41
PROVIDERS: PCP Internal Medicine; Visit Provider Physician Assistant
DX: S76.191A Other specified injury of right quadriceps muscle, fascia and tendon, initial encounter (principal); S86.811A Strain of other muscle(s) and tendon(s) at lower leg level, right leg, initial encounter; M17.11 Unilateral primary osteoarthritis, right knee; S83.411A Sprain of medial collateral ligament of right knee, initial encounter; S83.421A Sprain of lateral collateral ligament of right knee, initial encounter
CPT/HCPCS: 99203

== ENCOUNTER → 2025-08-04 10:48 | Outpatient (BNV) | payer OTHER, SELFPAY | PROVIDERS: Visit Provider Radiology Diagnostic Radiology | DX: M17.0 Bilateral primary osteoarthritis of knee (principal) | CPT/HCPCS: 73565 ==

== ENCOUNTER 2025-08-04 12:25 | Outpatient (REF) | payer OTHER, SELFPAY ==
--- NOTE | ~2025-08-04 | XR_ITS ---
EXAMINATION: XR KNEE AP STANDING CLINICAL INFORMATION: M25.561 - Pain in right knee COMPARISON: Right knee February 22, 2025 TECHNIQUE: AP bilateral standing view of the knees was obtained. FINDINGS: Limited study. Right knee demonstrates moderate narrowing of the medial compartment. There are small marginal osteophytes. Intercondylar tubercles are peaked. Left knee: There is mild to moderate narrowing of the medial joint space. There are minute marginal ossified involving tibial plateau. Intercondylar tubercles are peaked. XR/XR knee standing BI IMPRESSION: Moderate osteoarthritis of the right knee. Mild to moderate osteoarthritis of the left knee. Electronically signed by: Chivo Corea MD 08/04/2025 11:27 AM EDT
--- OUTSIDE RECORDS SUMMARY | 2025-08-05 13:57 | XMS_ITS | Clinical Summary ---
Author Organization [address] [place] [address] [place] [phone] Phone Care Team Providers Care Mine Engineering Superintendent Name Role Phone Agustín Miramontes MD Primary [...] AM EST Office Visit Bariatric Surgery - [place] [address] [place] [address] Malik Sotelo MD [facility] [place] [address] Health Maintenance Due Date Last [...] patient's age to complete this topic Insurance [employer] [facility] Care Teams Mine Engineering Superintendent Relationship Specialty Start Date End Date Agustín Miramontes MD [address] [place] [address] [address] [place], [place] PCP - General Internal Medicine 09/18/18
== END 2025-08-04 12:26 | disposition home or self-care (01) ==
LOC: HO.HOSX 12:25
PROVIDERS: Visit Provider Physician Assistant
DX: S86.811A Strain of other muscle(s) and tendon(s) at lower leg level, right leg, initial encounter (principal); S83.411A Sprain of medial collateral ligament of right knee, initial encounter; S83.421A Sprain of lateral collateral ligament of right knee, initial encounter; S76.191A Other specified injury of right quadriceps muscle, fascia and tendon, initial encounter; M17.11 Unilateral primary osteoarthritis, right knee; Z79.899 Other long term (current) drug therapy
CPT/HCPCS: 73565

== ENCOUNTER 2025-09-16 15:10 | Outpatient (AMB) | payer OTHER, SELFPAY ==
--- NOTE | 2025-09-16 15:16 | MHC.OFFVIS ---
Vital Signs 09/16/25 15:22 Height 5 ft 3 in Weight 200 lb BMI 35.4 Intake Visit Reasons: OV: right Knee LCL sprain Intake Note: Keira is a 55 year old female who presents today for a follow up of her right Knee LCL sprain. At last visit on 08/04/25 she was referred to physical therapy and she was given a hinged knee brace. At today's visit she reports that she is attending therapy twice a week. She continues to still have knee pain. States that the knee brace is helping. Allergies doxycycline Allergy (Intermediate, Verified 09/16/25 15:21) hives HPI HPI OV: right Knee LCL sprain: Details: 55-year-old female returns to the office today for a follow-up right knee injury. She has been working with physical therapy and feels there is some improvement but continues to have mild discomfort along the medial aspect of the knee. She continues to use the brace on occasion. [facility] Medical History Vitamin D deficiency Essential hypertension PONV (postoperative nausea and vomiting) Lumbar degenerative disc disease Obesity (BMI 30-39.9) Multinodular goiter Surgical History History of back surgery Hx of colonoscopy History of lobectomy of thyroid (~07/19/20) History of tubal ligation History of endometrial ablation Family History Father No problems noted. Mother Heart disease Social History Household Members: Spouse Housing: House Are you a primary home health care social worker to a significant other at home: No Do you presently have visiting nurse or other home services: No Alcohol intake: current Alcohol intake frequency: 0-2 drinks per day Comment: all counts correct Patient Tobacco Use Status: Current someday Tobacco user Tobacco use type: Cigarette Cigarette Packs Per Day: 1 e-Cigarette/Vaping Use: Never Used Second Hand Smoke Exposure: Yes service: No Current occupational status: employed Current occupational exposures/hazards: No Sexual orientation: Straight/Heterosexual Gender identity: Female Cognitive needs: No Hearing needs: No Vision needs: Yes (Glasses) Female Reproductive History Menstrual Age of Menarche: 15 Review of Systems Const All systems reviewed & are unremarkable except as noted in HPI and below Physical Exam Const General: cooperative and no acute distress Orientation/consciousness: patient oriented x3 Resp Effort & Inspection: normal respiratory effort and able to speak in complete sentences Cardio Peripheral pulses: Peripheral pulses 2+ throughout Neuro General: patient oriented x3 Extrem Other: Right knee is normal to inspection. She has full range of motion both active and passive. Tenderness along the medial retinaculum and also lateral retropatellar tenderness present. No ligamentous laxity. Calf supple and nontender neurovascularly intact. Assessment & Plan Assessment & Plan (1) Traumatic partial division of patellar tendon: Code(s): S76.199A - Other specified injury of unspecified quadriceps muscle, fascia and tendon, initial encounter Category: Medical (2) Traumatic medial retinacular tear of knee: Code(s): S86.819A - Strain of other muscle(s) and tendon(s) at lower leg level, unspecified leg, initial encounter Category: Medical (3) Osteoarthritis of right patellofemoral joint: Code(s): M17.11 - Unilateral primary osteoarthritis, right knee Category: Medical (4) MCL sprain of right knee: Code(s): S83.411A - Sprain of medial collateral ligament of right knee, initial encounter Category: Medical (5) Knee LCL sprain: Code(s): S83.429A - Sprain of lateral collateral ligament of unspecified knee, initial encounter Category: Medical Plan She will continue to work with physical therapy and modify activities as tolerated. I did reassure the patient this overall injury could take 3-6 months for full recovery. She will continue with the Celebrex as needed for flare-ups. If symptoms persist or worsen or there is any concerns she can contact our office otherwise follow up as needed. Orders: Orders PT Evaluation and Treatment Today M17.11 - Unilateral primary osteoarthritis, right knee, S76.199A - Other specified injury of unspecified quadriceps muscle, fascia and tendon, initial encounter, S83.411A - Sprain of medial collateral ligament of right knee, initial encounter, S83.429A - Sprain of lateral collateral ligament of unspecified knee, initial encounter, S86.819A - Strain of other muscle(s) and tendon(s) at lower leg level, unspecified leg, initial encounter Coding Level of Care Code Est Pt Level 3 (40581) Complex EM visit Add On G2211 Diagnoses Traumatic partial division of patellar tendon S76.199A Traumatic medial retinacular tear of knee S86.819A Osteoarthritis of right patellofemoral joint M17.11 MCL sprain of right knee S83.411A Knee LCL sprain S83.429A
[2025-09-16 15:22] VITALS: BMI 35.4
--- OUTSIDE RECORDS SUMMARY | 2025-09-16 18:23 | XMS_ITS | Clinical Summary ---
Author Organization [address] [place] [address] [place] [phone] Phone Care Team Providers Care Online Advertising Manager Name Role Phone Agustín Miramontes MD [...] AM EST Office Visit Bariatric Surgery - [place] [address] [place] [address] Malik Sotelo MD [facility] [place] [address] Health Maintenance Due Date Last [...] patient's age to complete this topic Insurance [place] [employer] [facility] Care Teams Online Advertising Manager Relationship Specialty Start Date End Date Agustín Miramontes MD [address] [place] [address] [address] [place], [place] PCP - General Internal Medicine 09/18/18
== END 2025-09-16 16:35 | disposition home or self-care (01) ==
LOC: HO.HOS 15:11
PROVIDERS: PCP Internal Medicine; Visit Provider Physician Assistant
DX: S86.811A Strain of other muscle(s) and tendon(s) at lower leg level, right leg, initial encounter (principal); M17.11 Unilateral primary osteoarthritis, right knee; S83.411A Sprain of medial collateral ligament of right knee, initial encounter; S83.421A Sprain of lateral collateral ligament of right knee, initial encounter
CPT/HCPCS: 99213

== ENCOUNTER 2025-10-18 14:29 | Outpatient (AMB) | payer OTHER, SELFPAY ==
--- OUTSIDE RECORDS SUMMARY | 2025-10-13 23:59 | XMS_ITS | Continuity of Care Document ---
Author Organization [facility] Vergara n[facility] Address [address] [place] [address], [address] [place] [address]- Care Team Providers Care Shelter Advocate Name Role Phone Agustín Miramontes MD Primary Care Physician [id number] Date(s): 09/13/25 - 10/13/25 [facility] [address] [place] [address], [address] [place] [address]- Encounter Type: Triage Allergies, Adverse Reactions, Alerts Substance Criticality Severity Reaction Reaction Severity Status doxycycline HIVES Active Medications losartan 50 mg oral tablet 0 Refills, Maintenance, 05/02/25 12:01:00 PM EDT, Partial fill upon patient request if the prescription is for a schedule II opioid drug. Start Date: 05/02/25 Status: Ordered Medication Dispense Status: Completed Total Allowed Fills: 1 Fills Dispensed: 0 Problem List Condition Confirmation Course Effective Dates Status Health St atus Informant Work related injury 1 Confirmed Active Cigarette smoker Confirmed Active Limitation due to disability 2 Confirmed Active Drug or alcohol risk assessment or counseling 3 Confirmed Active HTN (hypertension) Confirmed Active LBP (low back pain) Confirmed Active Lumbar spondylosis Confirmed Active Multinodular goiter Confirmed Active Obese class I Confirmed Active SI (sacroiliac) joint dysfunction Confirmed Active Postop check Confirmed Active 1low back pain: DOI 11/05/2014 2Initial Oswestry Disability Questionnaire: 03/21/2015, 26% moderate disability; Initial [place]: 03/21/2015, 3; Initial [place] Back Pain Disability Scale: 03/21/2015 44. 3Initial SOAPP-R: 03/21/2015 11 Social History Social History Type Response Smoking Status Current every day sm oker; Type: Cigarettes; Tobacco use times per day: fews times-takes 1 week to go through 1 pack; entered on: 04/11/15 Sex Sex Representation Female (finding) Patient Care team information Care Team Personnel Name: Agustín Miramontes MD Position: Reference Physician Member Role: PCP Address: [address] [place] [id number] Telecom: Care Team Related Persons Name: KRYSTIN DIAZ Insurance Providers [facility]: [facility] Payer: BLUE BENEFIT BBA PPO Payer Identifier: NA Member Number: [id number] Group Number: [id number] Subscriber Identifier: NA Relationship to Subscriber: self Coverage Type: BLUE CROSS/BLUE SHIELD Coverage Verification Date: Telecom: NA Address:
--- NOTE | 2025-10-18 14:35 | A.OFFPC_ITS ---
Vital Signs 10/18/25 14:38 Height 5 ft 3 in Weight 211 lb 2 oz BMI 37.4 BP 130/86 Blood Pressure Location Lt brachial Position Sitting Pulse 94 Pulse Source Pulse Oximeter Pulse Oximetry (%) 97 Oxygen Delivery Method Room Air Intake Visit Reasons: discuss Pt referral/sleep study? Fire Marshal Required: No Accompanied by: Self / Same As Patient Allergies doxycycline Allergy (Intermediate, Verified 10/19/25 08:13) hives Medication List - Last Reconciled 10/18/25 by Agustín Miramontes MD celecoxib (Celebrex) 200 mg PO BID 30 days cholecalciferol (vitamin D3) 50 mcg PO DAILY 90 days ciclopirox 0.77% 1 appl topical BID 2 weeks losartan 50 mg PO DAILY Tobacco use date assessed: 10/18/25 Dental Screening Dental Screen Date: 10/18/25 Did you have a dental visit in the last 12 months?: Yes Did you have a dental problem in the last 6 months where you did not have access to dental care?: No Was dental information given to patient?: Patient has dentist HPI discuss Pt referral/sleep study? HPI Details - The patient is a 55-year-old female pr esenting for a follow-up visit for weight management, hypertension, and a knee injury. - The patient was referred to a weight m anagement clinic but has not started the prescribed weight loss medication because her insurance denied coverage. - Her blood pressure remains elevated de spite being on losartan 50 mg, with a previous reading of 142 and a current reading of 130, which is considered stage one hypertension. - She previously experienced leg swellin g with another blood pressure medication. - The patient has gained 11 pounds since her last visit in July, and her weight was down to 191 in February. - Her weight gain is associated with dec reased physical activity due to a knee injury (partial patellar tendon tear) and poor sleep leading to increased eating. - The knee injury occurred when she was going down stairs while carrying her 10- pound grandson in a car seat. - For her knee, she wore a brace for eig ht weeks which caused her lower back to hurt, and she notes her knee is now doing much better. - Patient adds that she was seen by her dentist recently who reportedly advised her to get a sleep study due to some signs seen in her oropharynx that suggest a strong possibility that she may have YIN - Patient also reportedly snores very he avily when sleeping and feels fatigued often - She has a pre-colonoscopy appointment scheduled for the next day, which is a recall after three years. [facility] Medical History Vitamin D deficiency Essential hypertension PONV (postoperative nausea and vomiting) Lumbar degenerative disc disease Obesity (BMI 30-39.9) Multinodular goiter Surgical History History of back surgery Hx of colonoscopy History of lobectomy of thyroid (~07/19/20) History of tubal ligation History of endometrial ablation Family History Father No problems noted. Mother Heart disease Social History Household Members: Spouse Housing: House Are you a primary healthcare translator to a significant other at home: No Do you presently have visiting nurse or other home services: No Alcohol intake: current Alcohol intake frequency: 0-2 drinks per day Comment: all counts correct Patient Tobacco Use Status: Current someday Tobacco user Tobacco use type: Cigarette Cigarette Packs Per Day: 1 e-Cigarette/Vaping Use: Never Used Second Hand Smoke Exposure: Yes service: No Current occupational status: employed Current occupational exposures/hazards: No Sexual orientation: Straight/Heterosexual Gender identity: Female Cognitive needs: No Hearing needs: No Vision needs: Yes (Glasses) Female Reproductive History Menstrual Age of Menarche: 15 Questionnaire PHQ-9 Over the last 2 weeks, how often have you been bothered by any of the following problems? 1. Little interest or pleasure in doing things: not at all 2. Feeling down, depressed, or hopeless: not at all 3. Trouble falling or staying asleep, or sleeping too much: not at all 4. Feeling tired or having little energy: not at all 5. Poor appetite or overeating: not at all 6. Feeling bad about yourself - or that you are a failure or have let yourself or your family down: not at all 7. Trouble concentrating on things, such as reading the newspaper or watching te levision: not at all 8. Moving or speaking so slowly that other people could have noticed. Or the opposite - being so fidgety or restless that you have been moving around a lot more than usual: not at all 9. Thoughts that you would be better off or of hurting yourself in some way: not at all Total score: 0 Depression Screening Interpretation: Negative Depression Screening Done: Yes 12565 - PHQ-9 Billing: Yes Source: Developed by Drs. Devaughn Lauren, Mallory Garcia, Timothy Alegre and colleagues, with an educational shara from [employer]. Thrive Questionnaire Date Thrive assessed: 10/18/25 I am a: Patient What is your living situation today?: I have a steady place to live Within the past 12 months, did the food you bought not last and you didn't have the money to get more?: Never true Within the past 12 months, did you worry whether your food would run out before you got money to buy more?: Never true Do you have trouble paying for medicines?: No Do you have trouble getting transportation to medical appointments?: No Do you have trouble paying your heating and electricity bill?: No Do you have trouble taking care of your child, family member or friend?: No Do you have trouble with day-to-day activities such as bathing, preparing meals, shopping, managing finances, etc.?: No Are you currently unemployed and looking for a job?: No Are you interested in more education?: No Please select the resources that you would like help with: None Currently or been in a relationship where the following occur: No concerns reported THRIVE Score: 0 AUDIT C Alcohol Use Questionnaire (AUDIT-C) 1. How often do you have a drink containing alcohol?: Never 3. How often do you have six or more drinks on one occasion?: Never Total Score: 0 Score Reviewed/Action Taken: Yes MYRA-7 AMB Questionnaire MYRA-7 Date MYRA - 7 assessed: 10/18/25 Feeling nervous, anxious, or on edge: 0 = Not at all Not being able to stop or control worryin = Not at all Worrying too much about different things: 0 = Not at all Trouble relaxin = Several days Being so restless that it is hard to sit still: 0 = Not at all Becoming easily annoyed or irritable: 0 = Not at all Feeling afraid as if something awful might happen: 0 = Not at all Total MYRA-7 score (0-4 normal; 5-9 mild; 10-14 moderate; 15-21 severe): 1 Source: Developed by Drs. Devaughn Lauren, Mallory Garcia, Timothy Alegre and colleagues, with an educational shara from [employer]. Review of Systems Const Denies chills, Denies fatigue, Denies fever(s) and Denies headache(s) ENT Denies dysphagia, Denies dizziness, Denies otalgia, Denies headache(s), Denies neck pain, Denies odynophagia and Denies sore throat Card Denies chest pain, Denies palpitations and Denies dyspnea Resp Denies chest congestion, Denies cough and Denies dyspnea GI Denies abdominal pain, Reports constipation (at times), Denies dysphagia, Denies heartburn, Denies diarrhea, Denies nausea, Denies odynophagia and Denies vomiting Denies difficulty voiding, Denies nocturia, Denies dysuria and Denies urinary urgency Musc Reports back pain (improved with back surgery in 09/2023 but increased lately), Reports arthralgias (right knee - improving) and Denies neck pain Skin/Breast Denies rash Neuro Denies dizziness and Denies headache(s) Psych Denies anxiety Endo Denies fatigue and Denies palpitations Physical exam (Primary Care) Vital Signs: Last Vital Signs Pulse 94 10/18/25 14:38 BP 130/86 10/18/25 14:38 Pulse Ox 97 10/18/25 14:38 Oxygen Delivery Method Room Air 10/18/25 14:38 BMI result Body Mass Index 37.4 Tobacco/Smoking Status: Tobacco use Status Tobacco use date assessed 10/18/25 10/18/25 14:44 Patient Tobacco Use Status Current someday Tobacco 10/18/25 14:37 Tobacco use type Cigarette 10/18/25 14:37 e-Cigarette/Vaping Use Never Used 10/18/25 14:37 PHQ-9: PHQ-9 Score PHQ-9: Total score 0 10/19/25 05:42 Depression Screening Interpretation: Negative Thrive Assessment: Date of Thrive Assessment Date Thrive assessed 10/18/25 10/18/25 14:44 Currently or been in a relationship where the following occur: No concerns reported Const General: no acute distress and alert HENMT Throat: Yes posterior oropharynx normal and Yes tonsils normal (no TP congestion) Neck Neck: Yes supple and No lymphadenopathy Thyroid: Thyroid normal Resp Auscultation: clear to auscultation bilaterally, no rales and no wheezes Cardio Rate: regular rate Rhythm: regular rhythm Heart sounds: no murmurs GI Palpation (GI): Soft to palpation and nontender Auscultation: normal bowel sounds General: Yes no CVA tenderness Back/Spine/Pelvis Back: no CVA tenderness Thoracic/Lumbar Spine: lumbar spinal tenderness (mild) Skin Rashes: no rashes Extrem General: Yes no clubbing, cyanosis or edema Right lower extremity: knee (mild) Details: tenderness Location: of the medial joint line; no swelling Coding Level of Care Code Est Pt Level 4 (05547) Diagnoses Essential hypertension I10 Multinodular goiter E04.2 Narrow pharyngeal airway J39.2 Degeneration of intervertebral disc of lumbar region with discogenic back pain and lower extremity pain M51.362 Disc-related pain type: discogenic back pain and lower extremity pain Impaired fasting glucose R73.01 Vitamin D deficiency E55.9 Obesity (BMI 30-39.9) E66.9 Additional Codes PHQ-9 - 31569 - PHQ-9 Billing: Yes ([id number]) Assessment & Plan Assessment & Plan (1) Essential hypertension: Code(s): I10 - Essential (primary) hypertension Category: Medical Plan: Reinforced low sodium diet - goal is systolic BP of 120 mm or less Continue Amlodipine 5 mg QD Patient is reminded to continue monitoring her blood pressure regularly (2) Multinodular goiter: Comment: S/P right thyroid lobectomy by Dr. Clinton in July 2020 due to compressive symptoms Code(s): E04.2 - Nontoxic multinodular goiter Category: Medical Plan: Repeat thyroid US done in October 2021 revealed unremarkable appearance of the thyroidectomy bed. There is a TR 4 nodule at the left midpole which measures up to 9 mm in maximum dimension. Follow-up ultrasound recommended in one year Follow-up ultrasound in February 2023 revealed (+) left thyroid lobe nodules that do not meet ACR criteria for follow-up Will recheck her TFTs in a few months for follow up (3) Narrow pharyngeal airway: Code(s): J39.2 - Other diseases of pharynx Category: Medical Plan: Patient was reportedly advised by her dentist recently to get a sleep study due to some signs seen in oropharynx that suggest YIN As we have not received any correspondence from her dentist, we can only assume that what he noticed was something along the lines of a narrow oropharyngeal airway, which can increase one's risk for developing YIN when sleeping at night Patient also reportedly snores very heavily when sleeping and feels fatigued often Will go ahead and refer her to sleep medicine for further evaluation and management (4) Lumbar degenerative disc disease: Code(s): M51.36 - Other intervertebral disc degeneration, lumbar region Category: Medical Qualifiers: Disc-related pain type: discogenic back pain and lower extremity pain Qualified Code(s): M51.362 - Other intervertebral disc degeneration, lumbar region with discogenic back pain and lower extremity pain Plan: Patient underwent transforaminal lumbar interbody fusion L5-S1 on 09/25/[address] Bates, with (+) significant relief of her lower back symptoms since but her knee injury a few months ago appears to have aggravated her lower back recently Reinforced activity and weight-lifting restrictions (5) Impaired fasting glucose: Code(s): R73.01 - Impaired fasting glucose Category: Medical Plan: Her HgbA1c was at 5.8% when last checked in December 2024 Reinforced low calorie/low carb diet (6) Vitamin D deficiency: Code(s): E55.9 - Vitamin D deficiency, unspecified Category: Medical Plan: Continue Vitamin D3 2000 units QD Will recheck her Vitamin D level in a few months for follow up (7) Obesity (BMI 30-39.9): Code(s): E66.9 - Obesity, unspecified Category: Medical Plan: Reinforced diet/exercise as tolerated/lose weight She was on Phentermine 15 mg QD previously for weight loss but this was discontinued due to concerns about its effect on her blood pressure Plan To return as scheduled in February 2026 for her annual physical examination She is reminded to get her labs done just before her appointment in February 2026 Orders: Referrals Sleep Medicine Referral G47.33 - Obstructive sleep apnea (adult) (pediatric)
[2025-10-18 14:38] VITALS: BP 130/86; PULSE 94; O2SAT 97; BMI 37.4
--- OUTSIDE RECORDS SUMMARY | 2025-10-18 20:55 | XMS_ITS | Clinical Summary ---
Author Organization [address] [place] [address] [place] [phone] Phone Care Team Providers Care Export Clerk Name Role Phone Agustín Miramontes MD Primary [...] on file Sexual Orientation Not on file Last Filed Vital Signs Vital Sign Reading [...] AM EST Office Visit Bariatric Surgery - [place] [address] [place] [address] Malik Sotelo MD [facility] [place] [address] Health Maintenance Due Date Last [...] patient's age to complete this topic Insurance [place] [employer] [facility] Care Teams Export Clerk Relationship Specialty Start Date End Date Agustín Miramontes MD [address] [place] [address] [address] [place], [place] PCP - General Internal Medicine 09/18/18
== END 2025-10-18 15:13 | disposition home or self-care (01) ==
LOC: HO.HMCH 14:30
PROVIDERS: PCP Internal Medicine; Visit Provider Internal Medicine
DX: I10 Essential (primary) hypertension (principal); E04.2 Nontoxic multinodular goiter; J39.2 Other diseases of pharynx; M51.362 Other intervertebral disc degeneration, lumbar region with discogenic back pain and lower extremity pain; R73.01 Impaired fasting glucose; E55.9 Vitamin D deficiency, unspecified; E66.9 Obesity, unspecified

== ENCOUNTER → 2025-10-18 14:29 | Outpatient (BNVA) | payer OTHER, SELFPAY | PROVIDERS: PCP Internal Medicine; Visit Provider Internal Medicine | DX: I10 Essential (primary) hypertension (principal); E04.2 Nontoxic multinodular goiter; J39.2 Other diseases of pharynx; M51.362 Other intervertebral disc degeneration, lumbar region with discogenic back pain and lower extremity pain; R73.01 Impaired fasting glucose; E55.9 Vitamin D deficiency, unspecified; E66.9 Obesity, unspecified | CPT/HCPCS: 96127 ==

== ENCOUNTER 2025-10-19 07:40 | Outpatient (AMB) | payer OTHER, SELFPAY ==
--- OUTSIDE RECORDS SUMMARY | 2025-10-19 07:44 | XMS_ITS | Clinical Summary ---
Author Organization [address] [place] [address] [place] [phone] Phone Care Team Providers Care Engine Head Repairer Name Role Phone Agustín Miramontes MD Primary [...] AM EST Office Visit Bariatric Surgery - [place] [address] [place] [address] Malik Sotelo MD [facility] [place] [address] Health Maintenance Due Date Last [...] patient's age to complete this topic Insurance [employer] [facility] Care Teams Engine Head Repairer Relationship Specialty Start Date End Date Agustín Miramontes MD [address] [place] [address] [address] [place], [place] PCP - General Internal Medicine 09/18/18
--- NOTE | 2025-10-19 08:02 | MHC.OFFVIS ---
Vital Signs 10/19/25 08:12 Height 5 ft 3 in Weight 211 lb BMI 37.4 BP 138/82 Blood Pressure Location Rt brachial Position Sitting Pulse 86 Pulse Source Pulse Oximeter Pulse Oximetry (%) 98 Oxygen Delivery Method Room Air Intake Visit Reasons: Colonoscopy recall Intake Note: Est pt for recall colo screening. Last colo 2022. CC; Pt denies any current GI sx or concerns. Rn Long Term Care Required: No Accompanied by: Self / Same As Patient Allergies doxycycline Allergy (Intermediate, Verified 10/19/25 08:13) hives HPI HPI Colonoscopy recall: Details: LAST VISIT Colon cancer screening No change since last procedure. Please make sure that patient get something for nausea. Severe nausea after anesthesia. Patient will do different prep this time will do Dulcolax every evening for 1 week before the procedure then follow split prep day before the procedure. I will see her after the procedure, sooner on as needed basis. Patient is agreeable to this plan and verbalizes understanding of instructions. He was given the opportunity to ask questions and all questions answered. COLONOSCOPY Findings: Terminal Ileum: Not evaluated Cecum: A 2-3 mm sessile polyp - removed with a cold biopsy Ascending Colon: Normal Transverse Colon: A 10-12 mm sessile polyp in the proximal TC - removed with a hot snare Descending Colon: Normal Sigmoid Colon: Moderate diverticulosis Rectum: Normal Ano-rectum: Moderate internal hemorrhoids Colon preparation: Good Impression and Post Procedure Diagnosis: Colonoscopy Findings: One small and one medium sized polyps removed Moderate diverticulosis seen in the sigmoid colon Moderate hemorrhoids on retroflexed exam. Plan: Await pathology results Repeat Colonoscopy interval based on path results - in 3 years if polyps are adenomatous and 5 years if polyps are hyperplastic (due to family hx of significant colon polyps) PATHOLOGY RESULTS Diagnosis A. Colon, cecal polyp: Tubular adenoma; negative for high-grade dysplasia and carcinoma. B. Colon, transverse, polyp: Fragment of colonic mucosa with thermal artifact, otherwise no specific change; no adenomatous dysplasia seen TODAY'S VISIT Patient is here today for follow-up and to discuss going for colonoscopy. Patient had colonoscopy in July of 2023 and recommendation was made for repeat in 3 years. Tubular adenoma without high-grade dysplasia or carcinoma found. Patient denies any melena hematochezia, unintentional weight loss or ribbon like stools. Patient denies any dyspepsia, dysphagia or odynophagia. Denies any issues with anesthesia. Patient requires anti emetics for procedure due to nausea after anesthesia. Patient denies any cardiac or respiratory symptoms. Family history of CRC. Patient denies any constipation or diarrhea. Not on anticoagulation therapy. No history of sleep apnea [facility] Medical History Vitamin D deficiency Essential hypertension PONV (postoperative nausea and vomiting) Lumbar degenerative disc disease Obesity (BMI 30-39.9) Multinodular goiter Surgical History History of back surgery Hx of colonoscopy History of lobectomy of thyroid (~07/19/20) History of tubal ligation History of endometrial ablation Family History Father No problems noted. Mother Heart disease Social History Household Members: Spouse Housing: House Are you a primary care transition coordinator to a significant other at home: No Do you presently have visiting nurse or other home services: No Alcohol intake: current Alcohol intake frequency: 0-2 drinks per day Comment: all counts correct Patient Tobacco Use Status: Current someday Tobacco user Tobacco use type: Cigarette Cigarette Packs Per Day: 1 e-Cigarette/Vaping Use: Never Used Second Hand Smoke Exposure: Yes service: No Current occupational status: employed Current occupational exposures/hazards: No Sexual orientation: Straight/Heterosexual Gender identity: Female Cognitive needs: No Hearing needs: No Vision needs: Yes (Glasses) Female Reproductive History Menstrual Age of Menarche: 15 Review of Systems Const Denies weight gain and Denies weight loss ENT Reports no additional complaints, Denies dysphagia and Denies odynophagia Card Reports no additional complaints Resp Reports no additional complaints GI Denies abdominal pain, Denies belching, Denies melena, Denies bloating, Denies change in bowel habits, Denies dysphagia, Denies excessive flatus, Denies dyspepsia, Denies heartburn, Denies diarrhea, Denies loose stools, Denies nausea, Denies odynophagia and Denies vomiting Musc Reports no additional complaints Neuro Reports no additional complaints Psych Reports no additional complaints Endo Reports no additional complaints Physical Exam Const General: healthy appearing, no acute distress and well developed Nutritional Appearance: obese Orientation/consciousness: patient oriented x3 Resp Effort & Inspection: normal respiratory effort, able to speak in complete sentences, no tracheal deviation and symmetric chest movement Auscultation: clear to auscultation bilaterally Cardio Rate: regular rate GI Inspection: Yes normal to inspection, No distended and Yes obesity Palpation (GI): Soft to palpation, not firm, nontender and No hepatosplenomegaly present Auscultation: normal bowel sounds General: Yes no CVA tenderness Back/Spine/Pelvis Back: no CVA tenderness Skin General skin exam: elasticity normal, turgor normal and dry skin Neuro General: patient oriented x3 Psych Appearance: grossly normal Mental Status: mental status grossly normal Assessment & Plan Assessment & Plan (1) Colon cancer screening: Code(s): Z12.11 - Encounter for screening for malignant neoplasm of colon Category: Medical Plan What to expect before during and after procedure discussed with patient. Stressed the importance of good bowel prep and clear liquid diet day before procedure. We will see patient after the procedure. Patient was encouraged to call us if she will have any GI concerning symptoms. Patient is agreeable to this plan and verbalizes understanding of instructions. She was given the opportunity to ask questions and all questions answered. Thank you for allowing me to participate in her care Orders: Referrals GI Procedure Notification Z12.11 - Encounter for screening for malignant neoplasm of colon Medications: New bisacodyl (Dulcolax (bisacodyl)) take 4 tabs at noon the day before your colonoscopy 20 mg (4 x 5 mg) PO ONCE 4 tabs 0RF constipation 1 day Z12.11 - Encounter for screening for malignant neoplasm of colon polyethylene glycol 3350 (Miralax) As directed by gastroenterology department at [facility] 238 grams PO ONCE 238 grams 0RF Z12.11 - Encounter for screening for malignant neoplasm of colon Coding Level of Care Code Est Pt Level 3 (76161) Diagnoses Colon cancer screening Z12.11 Time Spent (min) 30 Comment 20 minutes spent with patient and additional 10 minutes spent reviewing her records
[2025-10-19 08:12] VITALS: BP 138/82; PULSE 86; O2SAT 98; BMI 37.4
== END 2025-10-19 08:20 | disposition home or self-care (01) ==
LOC: HO.HGI 07:41
PROVIDERS: PCP Internal Medicine; Visit Provider Nurse Practitioner Family
DX: Z01.818 Encounter for other preprocedural examination (principal); Z12.11 Encounter for screening for malignant neoplasm of colon
CPT/HCPCS: S0285

== ENCOUNTER 2025-10-21 16:03 | Outpatient (RCR) | payer OTHER, SELFPAY ==
--- NOTE | 2025-06-24 13:58 | MHC.PT.EP ---
[facility] [place] Office [place] Office [place] Office [address] Eloy Jernigan [address] [phone] F: [phone] F: [phone] F: [phone] F: [phone] Physical Therapy Plan of Care Date of Evaluation: 06/22/25 Date of Surgery: n/a Diagnosis: Pain in right knee Assessment: Pt is a very pleasant and motivated 55yo F who presents to PT with R knee pain. She reports in February she was descending stairs when she had sudden onset of pain and swelling to R knee. She presents to PT with current impairments in pain, decreased ROM, swelling, decreased strength, soft tissue restrictions, decreased balance/stability, and impaired gait. She is limited functionally by twisting, prolonged standing, walking, and stair navigation. She is an excellent candidate for skilled PT in order to address current impairments to maximize function to facilitate return to PLOF. She is recommended to be seen 2x/week for 4 weeks and will be reassessed at that time. She may also benefit from orthopedics consultation and/or MRI to assess integrity of ligaments throughout R knee Frequency and Duration: The patient will be seen 2x/week for 4 weeks Short Term Goals: Pt will be I with HEP to promote self management of symptoms Pt will improve R knee flexion ROM to at least 115 deg Net Software Developer Goals: Pt will achieve full ROM and strength all planes of R knee to assist with prolonged standing and walking Pt will ascend/descend 1 flight of stairs with reciprocal pattern without UE support independently and without pain Pt will demonstrate improvements in function as evidenced by statistically significant improvement in LEFI outcome measure Treatment Plan: Modalities to reduce pain, spasms and effusion. Manual therapy to restore motion and function. Therapeutic exercise to improve strength and flexibility. Neuromuscular re-education for posture and balance. Therapeutic activities to return to functional activities of daily living. Electronically signed by: Sherrill Uriostegui, PT, DPT Please sign and return to therapist. Thank you for your referral.
--- NOTE | 2025-11-01 09:25 | MHC.PT.DC ---
[facility] [place] Office [place] Office [place] Office [address] Eloy Jernigan [address] [phone] F: [phone] F: [phone] F: [phone] F: [phone] Physical Therapy Discharge Report Diagnosis: Pain in right knee Date of Surgery: n/a Date of Evaluation: 06/22/25 Date of Discharge: 11/01/25 Treatments to Date: 19 Cancellations to Date: No Shows to Date: Discharge Status: Improved Function Independent with HEP Discharge Summary: Pt was seen for skilled PT from 06/22/25-10/21/25. She has made excellent progress since SOC. She has had a decrease in pain and improvement in functional mobility. She improved her score on LEFI outcome measure from 22/80 on initial PT evaluation to 65/80 at D/C. She is independent with HEP. She was D/C to HEP at last attended session on 10/21/25 Electronically signed by: Sherrill Whitmore, PT, DPT Please sign and return to therapist. Thank you for your referral.
== END 2025-11-01 09:24 | disposition home or self-care (01) ==
LOC: HO.PT 16:03
PROVIDERS: PCP Internal Medicine
DX: M25.561 Pain in right knee (principal); M17.11 Unilateral primary osteoarthritis, right knee; S76.191D Other specified injury of right quadriceps muscle, fascia and tendon, subsequent encounter; S86.811D Strain of other muscle(s) and tendon(s) at lower leg level, right leg, subsequent encounter
CPT/HCPCS: 97035; 97110; 97112; 97140; 97161; 97530